=== PATIENT | male | born 1945 | race Caucasian/White ===

== ENCOUNTER 2018-03-20 11:33 | Emergency (ER) | payer OTHER ==
--- NOTE | 2018-03-20 12:57 | RAD REPORT ---
EXAM DESCRIPTION: CT - Stone Protocol - 03/20/2018 12:42 pm CLINICAL HISTORY: Abdominal pain. COMPARISON: July 2017 TECHNIQUE: Computed axial tomography of the abdomen pelvis was obtained without oral or IV contrast. Lack of IV and oral contrast limits evaluation of solid organs, bowel, and vessels. Coronal reformat bryant images were obtained and reviewed. All CT scans are performed using dose optimization technique as appropriate and may include automated exposure control or mA/KV adjustment according to patient size. FINDINGS: A 2 millimeter calculus is present within the left kidney without hydronephrosis. A right renal calculus is not noted. Renal arterial calcifications are present. An ureteral calculus is not n oted. A bladder calculus is not present. Hepatic and splenic granulomata are present. Fatty infiltration liver is present Pancreas and adrenals appear grossly normal Diverticula stem from the colon without evidence of diverticulitis. The appendix is normal. A small right inguinal hernia contains fat. An abdominal aortic aneurysm at the level of the kidneys measures 3.4 centimeters and is unchanged. A n infrarenal abdominal aortic aneurysm has an AP diameter 3.5 centimeters and is without significant change. Left common iliac artery aneurysm measures 23 millimeters IMPRESSION: A 2 millimeter nonobstructing left renal calculus Stable abdominal aortic aneurysms. Stable left common iliac artery aneurysm
[2018-03-20 12:58] LABS: Urine Bacteria <20 /HPF (NONE SEEN); Urine Culture Reflex Order NOT NEEDED; Urine Mucus 1+ /HPF (NONE SEEN); Urine RBC NONE SEEN /HPF (NONE SEEN)
[2018-03-20 12:59] LABS: Urine Blood NEGATIVE (NEG); Urine Glucose TRACE (NEG); Urine Protein NEGATIVE (NEG); Urine Specific Gravity 1.025 (1.005-1.030); Urine pH 6.5 (5.0-7.0)
--- NOTE | 2018-03-20 13:46 | ER ---
Nurse's Notes [facility] Name: Rick Xavier Age: 72 yrs Sex: Male : 1945 Arrival Date: 03/20/2018 Time: 11:36 Bed 7 Private MD: Hamzah Dos Santos R Diagnosis: Other abdominal pain Presentation: 03/20 11:43 Presenting complaint: Patient states: left abdominal pain. Pt states "about 6 months aa5 ago they found a spot in my intestines and Dr. Dos Santos wanted me to go do a colonoscopy but I never did but I came here because I started hurting worse about 3 days ago". Transition of care: patient was not received from another setting of care. Onset of symptoms was 2017. Risk Assessment: Do you want to hurt yourself or someone else? Patient reports no desire to harm self or others. Initial Sepsis Screen: Does the patient meet any 2 criteria? No. Patient's initial sepsis screen is negative. Does the patient have a suspected source of infection? No. Patient's initial sepsis screen is negative. Care prior to arrival: None. 11:43 Method Of Arrival: Ambulatory aa5 11:43 Acuity: MAX 3 aa5 Historical: - Allergies: 11:45 diphenhydramine HCl; aa5 11:45 procaine HCl; aa5 - PMHx: 11:45 Asthma; chronic back pain; COPD; CVA; Emphysema; Myocardial infarction; aa5 - PSHx: 11:45 CABG; Hernia repair; aa5 - Immunization history:: Pneumococcal vaccine is up to date, Flu vaccine is up to date. - Social history:: Smoking status: Patient/guardian denies using tobacco. - Ebola Screening: : No symptoms or risks identified at this time. Screenin:00 Abuse screen: Denies threats or abuse. Denies injuries from another. Nutritional hb screening: No deficits noted. Tuberculosis screening: No symptoms or risk factors identified. Fall Risk None identified. Assessment: 13:07 Reassessment: Pt returned from CT. OK to drink water per Dr. Hines. Water provided as hb requested. NAD. remains at bedside. Vital Signs: 11:45 BP 157 / 91; Pulse 74; Resp 16 S; Temp 97.9(TE); Pulse Ox 95% on R/A; Weight 102.51 kg aa5 (R); Height 5 ft. 9 in. (175.26 cm) (R); Pain 10/10; 13:00 BP 111 / 77; Pulse 83; Resp 15; Pulse Ox 98% on R/A; hb 11:45 Body Mass Index 33.37 (102.51 kg, 175.26 cm) aa5 ED Course: 11:36 Patient arrived in ED. sb2 11:36 Hamzah Dos Santos MD is Private Physician. sb2 11:45 Triage completed. aa5 11:46 Arm band placed on. aa5 11:59 Pablito Hines MD is Attending Physician. gs 12:00 Patient has correct armband on for positive identification. hb 12:[address] vr 12:29 Maile Cameron RN is Primary Nurse. hb 12:42 CT Stone Protocol In Process Unspecified. EDMS 14:30 No provider procedures requiring assistance completed. IV discontinued, intact, hb bleeding controlled, No redness/swelling at site. Pressure dressing applied. Administered Medications: No medications were administered Outcome: 13:46 Discharge ordered by . gs 14:30 Discharged to home ambulatory, with family. hb 14:30 Condition: stable 14:30 Discharge instructions given to patient, family, Instructed on discharge instructions, follow up and referral plans. medication usage, Demonstrated understanding of instructions, follow-up care, medications. 14:36 Patient left the ED. hb Signatures: Dispatcher [employer] EDPA Callie Villalba RN RN Jolynn Agarwal Maile Cameron, GAEL MAYO Pablito Hines MD MD Bianca Martinez sb2 Corrections: (The following items were deleted from the chart) 19:13 14:30 Discharge instructions given to patient, family, Instructed on discharge hb instructions, follow up and referral plans. medication usage, Demonstrated understanding of instructions, follow-up care, medications, Prescriptions given X 3, hb
--- NOTE | 2018-03-20 13:46 | EDPHYS ---
Physician Documentation [facility] Name: Rick Xavier Age: 72 yrs Sex: Male : 1945 Arrival Date: 03/20/2018 Time: 11:36 Bed 7 Private MD: Hamzah Dos Santos R ED Physician Pablito Hines HPI: 03/20 13:17 This 72 yrs old Male presents to ER via Ambulatory with complaints of SIDE gs PAIN. 13:17 The patient complains of pain in the left low back. The pain radiates to the right gs lower quadrant. Onset: The symptoms/episode began/occurred gradually, 5 day(s) ago. Modifying factors: The symptoms are alleviated by nothing. Associated signs and symptoms: Pertinent negatives: dysuria, hematuria, pain radiating to the lower extremities. Severity of pain: At its worst the pain was moderate in the emergency department the pain has improved mildly. The patient has experienced similar episodes in the past, a few times. The patient has not recently seen a physician. Historical: - Allergies: 11:45 diphenhydramine HCl; aa5 11:45 procaine HCl; aa5 - PMHx: 11:45 Asthma; chronic back pain; COPD; CVA; Emphysema; Myocardial infarction; aa5 - PSHx: 11:45 CABG; Hernia repair; aa5 - Immunization history:: Pneumococcal vaccine is up to date, Flu vaccine is up to date. - Social history:: Smoking status: Patient/guardian denies using tobacco. - Ebola Screening: : No symptoms or risks identified at this time. ROS: 13:17 Cardiovascular: Negative for chest pain, orthopnea, palpitations, paroxysmal nocturnal gs dyspnea. 13:17 Respiratory: Negative for pleurisy, shortness of breath. 13:17 All other systems are negative. Exam: 13:17 Head/Face: Normocephalic, atraumatic. Eyes: Pupils equal round and reactive to light, gs extra-ocular motions intact. Lids and lashes normal. Conjunctiva and sclera are non-icteric and not injected. Cornea within normal limits. Periorbital areas with no swelling, redness, or edema. ENT: Nares patent. No nasal discharge, no septal abnormalities noted. Tympanic membranes are normal and external auditory canals are clear. Oropharynx with no redness, swelling, or masses, exudates, or evidence of obstruction, uvula midline. Mucous membranes moist. Neck: Trachea midline, no thyromegaly or masses palpated, and no cervical lymphadenopathy. Supple, full range of motion without nuchal rigidity, or vertebral point tenderness. No Meningismus. Chest/axilla: Normal chest wall appearance and motion. Nontender with no deformity. No lesions are appreciated. Cardiovascular: Regular rate and rhythm with a normal S1 and S2. No gallops, murmurs, or rubs. Normal PMI, no JVD. No pulse deficits. Respiratory: Lungs have equal breath sounds bilaterally, clear to auscultation and percussion. No rales, rhonchi or wheezes noted. No increased work of breathing, no retractions or nasal flaring. Back: No spinal tenderness. No costovertebral tenderness. Full range of motion. Skin: Warm, dry with normal turgor. Normal color with no rashes, no lesions, and no evidence of cellulitis. MS/ Extremity: Pulses equal, no cyanosis. Neurovascular intact. Full, normal range of motion. Neuro: Awake and alert, GCS 15, oriented to person, place, time, and situation. Cranial nerves II-XII grossly intact. Motor strength 5/5 in all extremities. Sensory grossly intact. Cerebellar exam normal. Normal gait. 13:17 Constitutional: The patient appears alert, awake. 13:17 Abdomen/GI: Palpation: moderate abdominal tenderness, in the left upper quadrant. Vital Signs: 11:45 BP 157 / 91; Pulse 74; Resp 16 S; Temp 97.9(TE); Pulse Ox 95% on R/A; Weight 102.51 kg aa5 (R); Height 5 ft. 9 in. (175.26 cm) (R); Pain 10/10; 13:00 BP 111 / 77; Pulse 83; Resp 15; Pulse Ox 98% on R/A; hb 11:45 Body Mass Index 33.37 (102.51 kg, 175.26 cm) aa5 MDM: 12:05 Patient medically screened. gs 13:17 Differential diagnosis: nephrolithiasis, pyelonephritis, UTI, ruptured AAA. Data gs reviewed: vital signs, nurses notes. Response to treatment: the patient's symptoms have mildly improved after treatment, and as a result, I will discharge patient. 03/20 12:08 Order name: Urine Microscopic Only; Complete Time: 13:01 gs 03/20 12:48 Order name: Urine Dipstick--Ancillary (enter results); Complete Time: 13:01 em1 03/20 12:08 Order name: Urine Dipstick-Ancillary (obtain specimen); Complete Time: 12:31 gs 03/20 12:08 Order name: CT Stone Protocol; Complete Time: 13:01 Administered Medications: No medications were administered Disposition: 03/20/18 13:46 Discharged to Home. Impression: Other abdominal pain. - Condition is Stable. - Discharge Instructions: Flank Pain, [id number]. - Medication Reconciliation Form, Thank You Letter, Antibiotic Education, Prescription Opioid Use form. - Follow up: Private Physician; When: 2 - 3 days; Reason: Re-evaluation by your physician. Signatures: Dispatcher [employer] EDCallie Cassidy RN RN aa5 Maile Cameron RN RN Pablito Hines MD MD Corrections: (The following items were deleted from the chart) 14:36 13:46 03/20/2018 13:46 Discharged to Home. Impression: Other abdominal pain. Condition hb is Stable. Forms are Medication Reconciliation Form, Thank You Letter, Antibiotic Education, Prescription Opioid Use. Follow up: Private Physician; When: 2 - 3 days; Reason: Re-evaluation by your physician. gs
[2018-03-20 14:40] VITALS: TEMP 97.9
[2018-03-20 14:41] VITALS: BP 111/77; O2SAT 98
== END 2018-03-20 14:36 | disposition home or self-care (01) ==
LOC: ER 11:33
DX: R10.9 Unspecified abdominal pain (principal); I25.2 Old myocardial infarction; Z88.8 Allergy status to other drugs, medicaments and biological substances; Z95.1 Presence of aortocoronary bypass graft
CPT/HCPCS: 74176; 76377; 81003; 81015; 99284

== ENCOUNTER 2018-04-29 08:29 | Inpatient (IN) | payer OTHER ==
[2018-04-29] MEDS ORDERED: ALBUTEROL 2.5 MG/3 ML NEB SOL ONE (09:01)
[2018-04-29] MEDS ORDERED: IPRATROPIUM BROM 0.5MG/2.5ML ONE (09:01)
[2018-04-29] MEDS ORDERED: predniSONE 20 MG TAB ONE (09:02)
[2018-04-29 09:21] LABS: Absolute Lymphocytes (CBC) 1.1 K/uL (0.7-4.9); Absolute Monocytes 0.4 K/uL (0.1-1.3); Absolute Neutrophil 4.2 K/uL (1.8-8.0); Basophils % 0.5 % (0-1.3); Eosinophils % 3.8 % (0-4.4); Lymphocytes % 18.3 % (15.3-44.8); MPV 7.8 fL (7.6-11.3); RBC Red Blood Cell Count 4.87 M/uL (4.33-5.43)
[2018-04-29 09:40] LABS: BUN Blood Urea Nitrogen 11 mg/dL (7-18); Bicarbonate 27 mmol/L (21-32); Glucose Level 173 mg/dL (74-106); NT PRO-BNP 200 pg/mL (<125); Potassium 3.4 mmol/L (3.5-5.1); Sodium Level 141 mmol/L (136-145)
[2018-04-29 10:54] LABS: Blood Gas Oxyhemoglobin 91.9 % (94-97); Blood O2 Saturation 93.8 % (92-98.5)
--- NOTE | 2018-04-29 11:16 | ER ---
Nurse's Notes [facility] Name: Rick Xavier Age: 73 yrs Sex: Male : 1945 Arrival Date: 04/29/2018 Time: 08:33 Bed 7 Private MD: Hamzah Dos Santos R Diagnosis: Mild persistent asthma with (acute) exacerbation;Unstable angina Presentation: 04/29 08:35 Presenting complaint: Patient states: SOB and chest pressure since last night. Pt has aa5 hx of COPD. 93 % RA O2 sat. 08:35 Transition of care: patient was not received from another setting of care. Onset of aa5 symptoms was April 29, 2018. Risk Assessment: Do you want to hurt yourself or someone else? Patient reports no desire to harm self or others. Initial Sepsis Screen: Does the patient meet any 2 criteria? No. Patient's initial sepsis screen is negative. Does the patient have a suspected source of infection? No. Patient's initial sepsis screen is negative. Care prior to arrival: None. 08:35 Method Of Arrival: Ambulatory aa5 08:35 Acuity: MAX 3 aa5 Triage Assessment: 09:00 General: Appears in no apparent distress. uncomfortable, Behavior is calm, cooperative, jb4 appropriate for age. Respiratory: Reports shortness of breath at rest Onset: The symptoms/episode began/occurred yesterday, the patient has mild shortness of breath. Historical: - Allergies: 09:27 diphenhydramine HCl; jb4 09:27 procaine HCl; jb4 - Home Meds: 09:27 glimepiride Oral [Active]; Metoprolol Tartrate Oral [Active]; Zyrtec Oral [Active]; jb4 Zantac 150 mg oral tab [Active]; prednisone 10 mg Oral tab [Active]; aspirin 81 mg Oral TbEC [Active]; losartan oral oral [Active]; terazosin oral oral [Active]; metformin 1,000 mg Oral tr24 [Active]; hydrocodone-acetaminophen 10-325 mg oral tab [Active]; - PMHx: 09:27 Asthma; chronic back pain; COPD; CVA; Myocardial infarction; Emphysema; jb4 - PSHx: 09:27 CABG; Hernia repair; jb4 - Immunization history:: Adult Immunizations unknown. - Social history:: Smoking status: Patient/guardian denies using tobacco, but has a distant history of tobacco abuse. - Ebola Screening: : No symptoms or risks identified at this time. Screenin:00 Abuse screen: Denies threats or abuse. Nutritional screening: No deficits noted. jb4 Tuberculosis screening: No symptoms or risk factors identified. Fall Risk None identified. Assessment: 09:00 General: Appears in no apparent distress. uncomfortable, Behavior is calm, cooperative, jb4 appropriate for age. Pain: Complains of pain in chest. Neuro: Level of Consciousness is awake, alert, obeys commands, Oriented to person, place, time, situation. Cardiovascular: Heart tones S1 S2 present Patient's skin is warm and dry. Rhythm is sinus tachycardia. Respiratory: Airway is patent Respiratory effort is even, labored, Respiratory pattern is regular, symmetrical, Breath sounds are diminished in left upper lobe, left lower lobe, left posterior upper lobe and left posterior lower lobe Breath sounds with wheezes in right upper lobe, right middle lobe, right lower lobe, right posterior upper lobe, right posterior middle lobe and right posterior lower lobe. GI: No signs and/or symptoms were reported involving the gastrointestinal system. : No signs and/or symptoms were reported regarding the genitourinary system. EENT: No signs and/or symptoms were reported regarding the EENT system. Derm: Skin is intact, Skin is pink, warm \T\ dry. Musculoskeletal: Circulation, motion, and sensation intact. 09:52 Reassessment: Patient and/or family updated on plan of care and expected duration. Pain hj level reassessed. Patient is alert, oriented x 3, equal unlabored respirations, skin warm/dry/pink. awaiting results and POC; family in room; Patient states feeling better. Patient states symptoms have improved. 10:36 Reassessment: Patient and/or family updated on plan of care and expected duration. Pain jb4 level reassessed. Patient is alert, oriented x 3, equal unlabored respirations, skin warm/dry/pink. Patient denies pain at this time. Patient states feeling better. Patient states symptoms have improved. 11:23 Reassessment: Patient appears in no apparent distress at this time. No changes from jb4 previously documented assessment. Patient and/or family updated on plan of care and expected duration. Pain level reassessed. Patient is alert, oriented x 3, equal unlabored respirations, skin warm/dry/pink. Patient denies pain at this time. Vital Signs: 08:44 BP 153 / 95; Pulse 107; Resp 24; Temp 98.2(TE); Pulse Ox 93% on R/A; Weight 97.07 kg; jb4 Height 5 ft. 9 in. (175.26 cm); 08:47 Pulse Ox 96% on 2 lpm NC; jb4 09:52 BP 143 / 61; Pulse 118; Resp 18; Pulse Ox 97% on R/A; hj 10:37 BP 139 / 66; Pulse 112; Resp 20; Pulse Ox 97% on 2 lpm NC; Pain 0/10; jb4 11:23 BP 123 / 59; Pulse 107; Resp 23; Pulse Ox 96% on 2 lpm NC; Pain 0/10; jb4 08:44 Body Mass Index 31.60 (97.07 kg, 175.26 cm) 4 ED Course: 08:33 Patient arrived in ED. mr 08:33 Hamzah Dos Santos MD is Private Physician. mr 08:35 Arm band placed on Patient placed in an exam room, on a stretcher. aa5 08:38 Pablito Hines MD is Attending Physician. gs 08:41 Triage completed. aa5 08:44 Beau Guy, GAEL is Primary Nurse. jb4 09:00 Patient has correct armband on for positive identification. Bed in low position. Call [facility] light in reach. Side rails up X 1. monitor tech on. Pulse ox on. NIBP on. 09:00 Initial lab(s) drawn, by mn, sent to lab. Inserted saline lock: 22 gauge in right jb4 antecubital area, using aseptic technique. Blood collected. Missed attempt(s): 22 gauge in right forearm. 09:26 XRAY Chest (1 view) In Process Unspecified. EDMS 11:15 Hamzah Dos Santos MD is Hospitalizing Provider. gs 11:59 No provider procedures requiring assistance completed. Patient admitted, IV remains in [facility] place. intact. Administered Medications: 08:55 Drug: predniSONE 40 mg Route: PO; [facility] 09:45 Follow up: Response: No adverse reaction [facility] 08:55 Drug: Albuterol - atroVENT (3:1) (2.5 mg - 0.5 mg) 3 ml Route: Nebulizer; jb4 09:45 Follow up: Response: No adverse reaction; Wheezing diminished jb4 08:55 Drug: AtroVENT Aerosol 0.5 mg Route: Inhalation; jb4 11:20 Drug: Aspirin Chewable Tablet 324 mg Route: PO; jb4 11:41 Follow up: Response: No adverse reaction jb4 11:48 Follow up: Response: No adverse reaction hj 11:46 Drug: Potassium Effervescent Tablet 50 mEq Route: PO; jb4 11:50 Follow up: Response: No adverse reaction jb4 Outcome: 11:15 Decision to Hospitalize by Provider. 11:59 Admitted to Tele accompanied by tech, family with patient, via wheelchair, room 401, jb4 with chart, Report called to GAEL Oh 11:59 Condition: stable 11:59 Instructed on the need for admit, Demonstrated understanding of instructions. 12:09 Patient left the ED. [place] Signatures: Dispatcher [employer] EDPadmini Watts Audri, RN RN aa5 Kumar Simon RN RN hj Bryson, James, RN RN jb4 Pablito Hines MD MD
--- NOTE | 2018-04-29 11:16 | EDPHYS ---
Physician Documentation [facility] Name: Rick Xavier Age: 73 yrs Sex: Male : 1945 Arrival Date: 04/29/2018 Time: 08:33 Bed 7 Private MD: Hamzah Dos Santos R ED Physician Pablito Hines HPI: 04/29 10:21 This 73 yrs old Male presents to ER via Ambulatory with complaints of gs Breathing Difficulty. 10:21 Onset: The symptoms/episode began/occurred 2 day(s) ago, and became worse and became gs persistent. Duration: The symptoms are continuous. The patient's shortness of breath is aggravated by exertion. Associated signs and symptoms: Pertinent positives: chest pain, non-productive cough. Severity of symptoms: At their worst the symptoms were severe in the emergency department the symptoms are unchanged. The patient has experienced similar episodes in the past, several times. Historical: - Allergies: 09:27 diphenhydramine HCl; jb4 09:27 procaine HCl; jb4 - Home Meds: 09:27 glimepiride Oral [Active]; Metoprolol Tartrate Oral [Active]; Zyrtec Oral [Active]; jb4 Zantac 150 mg oral tab [Active]; prednisone 10 mg Oral tab [Active]; aspirin 81 mg Oral TbEC [Active]; losartan oral oral [Active]; terazosin oral oral [Active]; metformin 1,000 mg Oral tr24 [Active]; hydrocodone-acetaminophen 10-325 mg oral tab [Active]; - PMHx: 09:27 Asthma; chronic back pain; COPD; CVA; Myocardial infarction; Emphysema; jb4 - PSHx: 09:27 CABG; Hernia repair; jb4 - Immunization history:: Adult Immunizations unknown. - Social history:: Smoking status: Patient/guardian denies using tobacco, but has a distant history of tobacco abuse. - Ebola Screening: : No symptoms or risks identified at this time. ROS: 10:21 All other systems are negative. gs Exam: 10:21 Head/Face: Normocephalic, atraumatic. Eyes: Pupils equal round and reactive to light, gs extra-ocular motions intact. Lids and lashes normal. Conjunctiva and sclera are non-icteric and not injected. Cornea within normal limits. Periorbital areas with no swelling, redness, or edema. ENT: Nares patent. No nasal discharge, no septal abnormalities noted. Tympanic membranes are normal and external auditory canals are clear. Oropharynx with no redness, swelling, or masses, exudates, or evidence of obstruction, uvula midline. Mucous membranes moist. Neck: Trachea midline, no thyromegaly or masses palpated, and no cervical lymphadenopathy. Supple, full range of motion without nuchal rigidity, or vertebral point tenderness. No Meningismus. Chest/axilla: Normal chest wall appearance and motion. Nontender with no deformity. No lesions are appreciated. Abdomen/GI: Soft, non-tender, with normal bowel sounds. No distension or tympany. No guarding or rebound. No evidence of tenderness throughout. Back: No spinal tenderness. No costovertebral tenderness. Full range of motion. Skin: Warm, dry with normal turgor. Normal color with no rashes, no lesions, and no evidence of cellulitis. MS/ Extremity: Pulses equal, no cyanosis. Neurovascular intact. Full, normal range of motion. Neuro: Awake and alert, GCS 15, oriented to person, place, time, and situation. Cranial nerves II-XII grossly intact. Motor strength 5/5 in all extremities. Sensory grossly intact. Cerebellar exam normal. Normal gait. 10:21 Constitutional: The patient appears alert, awake, in obvious distress, severely distressed. 10:21 Cardiovascular: Rate: tachycardic, Rhythm: regular, Pulses: no pulse deficits are appreciated, Edema: is not appreciated. 10:21 ECG was reviewed by the Attending Physician. 10:21 Respiratory: mild respiratory distress is noted, Respirations: tachypnea, that is mild, Breath sounds: wheezing: that is moderate, is heard diffusely. Vital Signs: 08:44 BP 153 / 95; Pulse 107; Resp 24; Temp 98.2(TE); Pulse Ox 93% on R/A; Weight 97.07 kg; jb4 Height 5 ft. 9 in. (175.26 cm); 08:47 Pulse Ox 96% on 2 lpm NC; jb4 09:52 BP 143 / 61; Pulse 118; Resp 18; Pulse Ox 97% on R/A; hj 10:37 BP 139 / 66; Pulse 112; Resp 20; Pulse Ox 97% on 2 lpm NC; Pain 0/10; jb4 11:23 BP 123 / 59; Pulse 107; Resp 23; Pulse Ox 96% on 2 lpm NC; Pain 0/10; jb4 08:44 Body Mass Index 31.60 (97.07 kg, 175.26 cm) jb4 MDM: 08:43 Patient medically screened. 10:21 Differential diagnosis: Bronchitis CHF exacerbation, Chronic Obstructive Pulmonary gs Disease Myocardial Infarction. Data reviewed: vital signs, nurses notes. 04/29 08:50 Order name: Basic Metabolic Panel; Complete Time: 10:00 04/29 08:50 Order name: CBC with Diff; Complete Time: 10:00 04/29 08:50 Order name: NT PRO-BNP; Complete Time: 10:00 04/29 08:50 Order name: Troponin (emerg Dept Use Only); Complete Time: 10:00 04/29 10:33 Order name: ABG; Complete Time: 11:05 04/29 11:25 Order name: NT PRO-BNP [facility] 04/29 08:50 Order name: XRAY Chest (1 view); Complete Time: 11:46 04/29 11:25 Order name: NT PRO-BNP [facility] 04/29 11:25 Order name: Troponin I [facility] 04/29 11:25 Order name: Troponin I [facility] 04/29 11:25 Order name: Troponin I [facility] 04/29 11:44 Order name: Urine Dipstick--Ancillary (enter results) 04/29 08:50 Order name: EKG; Complete Time: 08:50 04/29 08:50 Order name: Cardiac monitoring; Complete Time: 08:55 04/29 08:50 Order name: EKG - Nurse/Tech; Complete Time: 08:55 04/29 08:50 Order name: IV Saline Lock; Complete Time: 09:11 04/29 08:50 Order name: Labs collected and sent; Complete Time: 09:11 04/29 08:50 Order name: O2 Per Protocol; Complete Time: 08:55 04/29 08:50 Order name: O2 Sat Monitoring; Complete Time: 08:55 04/29 08:50 Order name: Urine Dipstick-Ancillary (obtain specimen); Complete Time: 11:39 04/29 11:25 Order name: CONS Physician Consult [facility] 04/29 11:25 Order name: Heart Healthy [facility] EC:21 Rate is 107 beats/min. Rhythm is regular. [place] interval is normal. QRS interval is gs normal. T waves are Normal. No ST changes noted. Clinical impression: NSR w/ Non-specific ST/T Changes and Sinus tachycardia. Interpreted by me. Administered Medications: 08:55 Drug: predniSONE 40 mg Route: PO; jb4 09:45 Follow up: Response: No adverse reaction jb4 08:55 Drug: Albuterol - atroVENT (3:1) (2.5 mg - 0.5 mg) 3 ml Route: Nebulizer; jb4 09:45 Follow up: Response: No adverse reaction; Wheezing diminished jb4 08:55 Drug: AtroVENT Aerosol 0.5 mg Route: Inhalation; jb4 11:20 Drug: Aspirin Chewable Tablet 324 mg Route: PO; jb4 11:41 Follow up: Response: No adverse reaction jb4 11:48 Follow up: Response: No adverse reaction hj 11:46 Drug: Potassium Effervescent Tablet 50 mEq Route: PO; jb4 11:50 Follow up: Response: No adverse reaction jb4 Disposition: 11:14 Critical Care:. gs Disposition: 04/29/18 11:15 Hospitalization ordered by Hamzah Dos Santos for Inpatient Admission. Preliminary diagnosis are Mild persistent asthma with (acute) exacerbation, Unstable angina. - Bed requested for Telemetry/MedSurg (Inpatient). - Status is Inpatient Admission. hj - Condition is Stable. - Problem is new. - Symptoms have improved. UTI on Admission? No Critical care time excluding procedures: 11:14 Critical care time: Bedside Care: 10 minutes, Consultation: 10 minutes, Family gs Intervention: 10 minutes. Total time: 30 minutes Signatures: Dispatcher [employer] [facility] Emperatriz Escalera RN RN Kumar Simon RN RN Beau Guy RN RN jb4 Pablito Hines MD MD Corrections: (The following items were deleted from the chart) 11:15 11:15 Hospitalization Ordered by Hamzah Dos Santos MD for Inpatient Admission. Preliminary gs diagnosis is Mild persistent asthma with (acute) exacerbation. Bed requested for Telemetry/MedSurg (Inpatient). Status is Inpatient Admission. Condition is Stable. Problem is new. Symptoms have improved. UTI on Admission? No. gs 11:46 11:15 04/29/2018 11:15 Hospitalization Ordered by Hamzah Dos Santos MD for Inpatient dw Admission. Preliminary diagnosis is Mild persistent asthma with (acute) exacerbation; Unstable angina. Bed requested for Telemetry/MedSurg (Inpatient). Status is Inpatient Admission. Condition is Stable. Problem is new. Symptoms have improved. UTI on Admission? No. gs 12:09 11:46 04/29/2018 11:15 Hospitalization Ordered by Hamzah Dos Santos MD for Inpatient hj Admission. Preliminary diagnosis is Mild persistent asthma with (acute) exacerbation; Unstable angina. Bed requested for Telemetry/MedSurg (Inpatient). Status is Inpatient Admission. Condition is Stable. Problem is new. Symptoms have improved. UTI on Admission? No. dw
[2018-04-29] MEDS ORDERED: ASPIRIN 81 MG CHEWABLE TABLET ONE (11:23)
[2018-04-29] MEDS ORDERED: ACETAMINOPHEN 500 MG TAB PO PRN (11:23)
--- NOTE | 2018-04-29 11:37 | RAD REPORT ---
EXAM DESCRIPTION: Tia Single View04/29/2018 9:56 am CLINICAL HISTORY: Chest pain COMPARISON: July 2017 FINDINGS: The lungs appear clear of acute infiltrate. The heart is normal size post surgical change s involve the chest IMPRESSION: No acute abnormalities displayed
[2018-04-29] MEDS ORDERED: POTASSIUM 25 MEQ EFFERV TAB ONE (11:54)
[2018-04-29 12:16] LABS: Urine Blood NEGATIVE (NEG); Urine Glucose TRACE (NEG); Urine Protein NEGATIVE (NEG); Urine Specific Gravity >1.030 (1.005-1.030); Urine pH 5.5 (5.0-7.0)
[2018-04-29] MEDS: METHYLPREDNISOLONE 40 MG INJ IV SCH ×2 (13:07→18:02)
[2018-04-29 13:41] VITALS: BMI 31.1
[2018-04-29] MEDS ORDERED: GLUCAGON 1 MG/VIAL IM PRN (19:12)
[2018-04-29] MEDS ORDERED: D50W 25 GM/50 ML SYRINGE IV PRN (19:12)
[2018-04-29] MEDS ORDERED: ALPRAZOLAM 0.25 MG TABLET PO PRN (19:35)
[2018-04-29] MEDS: INSULIN -REGULAR HUMAN 50 UNIT/0.5 ML ML SQ SCH (20:11)
[2018-04-29] MEDS: ALBUTEROL 2.5 MG/3 ML NEB SOL NEB PRN (20:55)
[2018-04-29] MEDS ORDERED: HYDROCODONE/APAP 10/325 TAB PO PRN (22:31)
[2018-04-30] MEDS: METHYLPREDNISOLONE 40 MG INJ IV SCH ×2 (02:00→08:27)
--- NOTE | 2018-04-30 07:47 | EKG ---
Test Date: 2018-04-29 Test Time: 08:46:09 Mounter: RODRIGUE MEASUREMENT RESULTS: Intervals: Rate: 107 MD: 168 QRSD: 82 QT: 360 QTc: 480 [place]: P: 41 MD: 168 QRS: 42 T: 43 INTERPRETIVE STATEMENTS: Sinus tachycardia with premature supraventricular complexes Otherwise normal ECG Compared to ECG 07/27/2017 10:09:18 Atrial premature complex(es) now present T-wave abnormality no longer present Electronically Signed On 05-01-18 07:51:38 CDT by Garry Pisano
[2018-04-30] MEDS: ALBUTEROL 2.5 MG/3 ML NEB SOL NEB PRN (07:56)
[2018-04-30 08:19] VITALS: BP 179/98; TEMP 98.4
[2018-04-30] MEDS: INSULIN -REGULAR HUMAN 50 UNIT/0.5 ML ML SQ SCH (08:26)
[2018-04-30] MEDS ORDERED: LOSARTAN POTASSIUM 50 MG TABLET PO SCH (09:00)
[2018-04-30] MEDS ORDERED: CETIRIZINE HCL 5 MG TABLET PO SCH (09:00)
[2018-04-30] MEDS ORDERED: METOPROLOL TAR 50 MG TAB PO SCH (09:00)
[2018-04-30] MEDS ORDERED: ASPIRIN EC 81 MG TAB PO SCH (09:00)
[2018-04-30] MEDS ORDERED: RANITIDINE 150 MG TABLET PO SCH (09:00)
--- NOTE | 2018-04-30 13:09 | CON ---
Date of Consultation: 04/30/2018 I saw the patient on 04/30/2018. Reason For Consultation: Elevated troponin and shortness of breath. History Of Present Illness: The patient is a 73-year-old white male. He has a history of COPD that is severe, multiple CVAs, multiple MIs, multiple stents and CABG as well. His bypass surgery was abo ut 10 years ago here in this hospital by Dr. Palm. He has not had much in way of good followup from a cardiovascular standpoint. He does not remember when the last time he had an ultrasound or stress test. He came in with shortness of breath that he blamed on a mini-stroke. Did not have any chest p ain, nausea, vomiting, diaphoresis, PND, orthopnea, pedal edema, palpitations, or syncope. His tropo meaghan was 0.05 x 2, not consistent with acute coronary artery syndrome. His BNP was 200. His glucose was 274. His PO2 was 70, pH of 7.4, and pCO2 of 37. His chest x-ray was negative. EKG showed sinus tachycardia with nonspecific changes. The patient continues to have significant wheezing and shortn ess of breath but no chest pain. Past Medical History: As stated above. Allergies: HE IS ALLERGIC TO BENADRYL AND PROCAINE. Review of Systems: Negative. Social History: Positive for tobacco use in the past. Family History: Positive for heart disease. Medications: At home include metformin, Hytrin, prednisone, inhalers, aspirin, Lipitor, Cozaar, glim epiride, and metoprolol. Physical Examination: General: He was in no acute distress. His shortness of breath have improved. He was crying because of multiple stress issues and social issues at home with his son in his house. He was in sinus rhyt . Vital Signs: Stable. HEENT: Exam was negative. Neck: Supple without any JVD, thyromegaly, or bruit. Chest: Revealed severe wheezing on expiration bilaterally, but no rales. Cardiac: Revealed a regular rhythm and rate without any murmurs, gallops, or rubs. Abdomen: His abdomen was obese but benign. Extremities: Revealed no clubbing, cyanosis, or edema. Diagnostic Data: As stated earlier. Impression And Plan: 1.I think Mr. Xavier's symptoms are purely chronic obstructive pulmonary disease exacerbation. I doubt we are dealing with congestive heart failure. His troponin elevation can be easy to explain by hypoxia. The pattern is not consistent with acute coronary artery syndrome and he does not need a h eart catheterization, but I do recommend he has an echocardiogram and a Lexiscan. These certainly co uld be done as an inpatient or outpatient and he needs his chronic obstructive pulmonary disease gal bryant more aggressively. His other problems include history of cerebrovascular accident, coronary abdi ry bypass graft, diabetes, hypertension, and dyslipidemia, seems to be fairly well controlled at this point. I will discuss the case further with Dr. Beal. ANATOLY/CRISS Voice ID: [id number] Report ID: [id number]
[2018-04-30 13:30] VITALS: O2SAT 94
[2018-04-30] MEDS ORDERED: ATORVASTATIN 20 MG TAB PO SCH (21:00)
[2018-04-30] MEDS ORDERED: METFORMIN ER 500 MG TAB PO SCH (21:00)
[2018-04-30] MEDS ORDERED: TERAZOSIN HCL 5 MG CAP PO SCH (21:00)
[2018-04-30] MEDS ORDERED: TRAZODONE 50 MG TABLET PO SCH (21:00)
--- NOTE | 2018-05-01 05:59 | HP ---
Date of Admission: 04/29/2018 Chief Complaint: Wheezing and dyspnea. History Of Present Illness: A 73-year-old male was brought to the emergency room because of dyspnea and wheezing. The patient had evaluation done. The patient is admitted for observation. The patien t denied any history of fever, chills, or rigors. The patient does not clearly admit chest pain; how ever, ER notes indicate a history of chest pain. Past Medical History: Positive for type 2 diabetes, history of COPD, CVA old, history of coronary ar dona disease. Past Surgical History: Positive for hernia surgery and coronary bypass surgery. Review of Systems: No fever, chills, rigors. Physical Examination: General: Revealed a 73-year-old male, not in acute distress. Stable at rest. HEENT: Negative. Neck: Supple. JVD negative. Chest: Few scattered wheezes. Heart: Regular. Abdomen: Soft. Extremities: No edema. Assessment: 1.Chronic obstructive pulmonary disease exacerbation. 2.Chronic obstructive pulmonary disease. 3.Known coronary artery disease. 4.Hypertension. 5.History of old cerebrovascular accident. Plan: The patient claims that his son is in the shelter and he is stressed and wants to leave. The pat geovanna was discharged to have followup in the office. He was given oral steroids as well as Levaquin. RONNELL/CRISS Voice ID: [id number]
== END 2018-04-30 10:40 | disposition home or self-care (01) | DRG 192 ==
LOC: ER 08:29 → ERHOLD 11:22 → 4TH 11:59
PROVIDERS: ADMIT Internal Medicine; ATTEND Internal Medicine
DX: J44.1 Chronic obstructive pulmonary disease with (acute) exacerbation (principal); I25.10 Atherosclerotic heart disease of native coronary artery without angina pectoris; I10 Essential (primary) hypertension; R09.02 Hypoxemia; E78.5 Hyperlipidemia, unspecified; E11.9 Type 2 diabetes mellitus without complications; R74.8 Abnormal levels of other serum enzymes; Z87.891 Personal history of nicotine dependence; Z86.73 Personal history of transient ischemic attack (TIA), and cerebral infarction without residual deficits; Z95.1 Presence of aortocoronary bypass graft; Z95.5 Presence of coronary angioplasty implant and graft; I25.2 Old myocardial infarction; Z88.4 Allergy status to anesthetic agent; Z88.8 Allergy status to other drugs, medicaments and biological substances; Z79.84 Long term (current) use of oral hypoglycemic drugs; Z79.82 Long term (current) use of aspirin; Z79.52 Long term (current) use of systemic steroids
CPT/HCPCS: 36415; 71045; 80048; 81003; 82805; 82962; 83880; 84484; 85025; 87070; 87077; 87186; 87205; 93005; 94640; 94760; 99285; J2920; J7512

== ENCOUNTER 2018-05-19 12:25 | Inpatient (IN) | payer OTHER ==
[2018-05-19] MEDS ORDERED: LEVALBUTEROL 1.25 MG/3 ML NEB ONE (13:18)
[2018-05-19] MEDS ORDERED: VANCOMYCIN 1.5 GM in NA CHLORIDE 0.9% 500 ML IVPB ONE (13:30)
[2018-05-19 13:44] LABS: Absolute Lymphocytes (CBC) 1.9 K/uL (0.7-4.9); Absolute Monocytes 1.1 K/uL (0.1-1.3); Absolute Neutrophil 8.9 K/uL (1.8-8.0); Basophils % 0.3 % (0-1.3); Eosinophils % 1.3 % (0-4.4); Hematocrit 36.6 % (39.6-49.0); Lymphocytes % 16.1 % (15.3-44.8); MCH 25.6 pg (27.0-35.0); MCV 78.9 fL (80-100); MPV 7.9 fL (7.6-11.3); Monocytes % 9.2 % (3.3-12.3); RBC Red Blood Cell Count 4.65 M/uL (4.33-5.43)
[2018-05-19 14:03] LABS: BUN Blood Urea Nitrogen 10 mg/dL (7-18); Bicarbonate 30 mmol/L (21-32); Glucose Level 191 mg/dL (74-106); Potassium 3.8 mmol/L (3.5-5.1); Sodium Level 136 mmol/L (136-145)
--- NOTE | 2018-05-19 14:13 | ER ---
Nurse's Notes [facility] Name: Rick Xavier Age: 73 yrs Sex: Male : 1945 Arrival Date: 05/19/2018 Time: 12:28 Bed 24 Private MD: Hamzah Dos Santos R Diagnosis: Cellulitis to the right foot Presentation: 05/19 12:35 Presenting complaint: Patient states: Wound infection to top of right foot for 3 days aj "where this cast is rubbing me." Patient reports being sent to ER for cast removal by ortho. Transition of care: patient was not received from another setting of care. Onset of symptoms was May 16, 2018. Risk Assessment: Do you want to hurt yourself or someone else? Patient reports no desire to harm self or others. Initial Sepsis Screen: Does the patient meet any 2 criteria? No. Patient's initial sepsis screen is negative. Does the patient have a suspected source of infection? No. Patient's initial sepsis screen is negative. Care prior to arrival: None. 12:35 Method Of Arrival: Wheelchair aj 12:35 Acuity: MAX 3 aj Triage Assessment: 12:37 General: Appears in no apparent distress. comfortable, Behavior is calm, cooperative, aj appropriate for age. Pain: Complains of pain in dorsum of right foot. Neuro: Level of Consciousness is awake, alert, obeys commands, Oriented to person, place, time, situation, Appropriate for age. Respiratory: Airway is patent Respiratory effort is even, unlabored, Respiratory pattern is regular, symmetrical. Derm: Skin is intact, is healthy with good turgor, Skin is pink, warm \\T\\ dry. normal, Wound noted dorsum of right foot Wound is Redness and inflammation to top of right foot. Historical: - Allergies: 12:37 diphenhydramine HCl; aj 12:37 procaine HCl; aj 12:37 PENICILLINS; aj - Home Meds: 12:37 aspirin 81 mg Oral TbEC [Active]; Glimepiride Oral [Active]; hydrocodone-acetaminophen aj 10-325 mg Oral tab [Active]; losartan Oral [Active]; metformin 1,000 mg Oral tr24 [Active]; Metoprolol Tartrate Oral [Active]; prednisone 10 mg Oral tab [Active]; terazosin Oral [Active]; Zantac 150 mg Oral tab [Active]; Zyrtec Oral [Active]; - PMHx: 12:37 Asthma; chronic back pain; COPD; CVA; Emphysema; Myocardial infarction; aj - PSHx: 12:37 CABG; Hernia repair; aj - Immunization history:: Adult Immunizations up to date. - Social history:: Smoking status: Patient/guardian denies using tobacco, Patient uses street drugs, marijuana. - Ebola Screening: : Patient negative for fever greater than or equal to 101.5 degrees Fahrenheit, and additional compatible Ebola Virus Disease symptoms Patient denies exposure to infectious person Patient denies travel to an Ebola-affected area in the 21 days before illness onset No symptoms or risks identified at this time. Screenin:48 Abuse screen: Denies threats or abuse. Nutritional screening: No deficits noted. la1 Tuberculosis screening: No symptoms or risk factors identified. Fall Risk None identified. Assessment: 12:48 General: Appears comfortable, Behavior is calm, cooperative. Pain: Complains of pain in la1 dorsum of right foot. Neuro: Level of Consciousness is awake, alert, obeys commands, Oriented to person, place, time, situation. Cardiovascular: Heart tones S1 S2 present Capillary refill < 3 seconds Patient's skin is warm and dry. Respiratory: Airway is patent Trachea midline Respiratory effort is even, unlabored, Respiratory pattern is regular, symmetrical. Respiratory: Breath sounds are diminished bilaterally. Breath sounds with wheezes the patient has mild shortness of breath. GI: No signs and/or symptoms were reported involving the gastrointestinal system. : No signs and/or symptoms were reported regarding the genitourinary system. Derm: Wound noted dorsum of right foot Other: pt presents with cast to E, wound at edge of cast on dorsum of foot. Vital Signs: 12:37 BP 112 / 86; Pulse 108; Resp 19; Temp 98.2; Pulse Ox 95% on R/A; Weight 95.71 kg; aj Height 5 ft. 9 in. (175.26 cm); 15:45 BP 108 / 70; Pulse 95; Resp 16; Pulse Ox 92% on R/A; la1 15:47 Temp 98.6; la1 12:37 Body Mass Index 31.16 (95.71 kg, 175.26 cm) ED Course: 12:28 Patient arrived in ED. sb2 12:29 Hamzah Dos Santos MD is Private Physician. sb2 12:36 Triage completed. aj 12:37 Arm band placed on left wrist. Patient placed in an exam room. aj 12:48 Oc Hylton, GAEL is Primary Nurse. la1 12:48 Bed in low position. Call light in reach. Side rails up X 1. Pulse ox on. NIBP on. la1 12:54 Isaiah Song MD is Attending Physician. kdr 13:20 Initial lab(s) drawn, by me, sent to lab. First set of blood cultures drawn via jp3 22-gauge IV in Right A/C. Inserted saline lock: 20 gauge in right antecubital area, using aseptic technique. Blood collected. 13:27 CBC with Diff Sent. jp3 13:27 Basic Metabolic Panel Sent. jp3 13:35 Second set of blood cultures drawn via 21-gauge butterfly needle in Left A/C. jp3 13:40 Blood Culture Adult (2) Sent. jp3 13:40 Basic Metabolic Panel Sent. jp3 13:41 CBC with Diff Sent. jp3 13:58 Removal of Cast applied by an outside physician was removed from lateral aspect of jp3 right calf, right ankle, lateral aspect of right foot, right calf, right Achilles, right heel, medial aspect of right calf, medial aspect of right foot, right kenny, anterior aspect of right ankle and dorsum of right foot. Skin is reddened, swollen, Patient tolerated well. 14:11 Hamzah Dos Santos MD is Hospitalizing Provider. kdr 14:25 X-ray completed. Portable x-ray completed in exam room. Patient tolerated procedure ml well. 15:32 Blood Culture Adult (2) Sent. jp3 16:40 No provider procedures requiring assistance completed. Patient admitted, IV remains in la1 place. Administered Medications: 13:47 Drug: Xopenex (3) 1.25 mg Route: Inhalation; la1 14:43 Drug: vancoMYCIN 1.5 grams Route: IVPB; Rate: calculated rate; Site: right antecubital; la1 15:45 Follow up: IV Status: Infusion continued upon admission la1 15:17 Drug: [place] 10 mg-325 mg 1 tabs Route: PO; la1 15:46 Follow up: Response: No adverse reaction; Pain is decreased la1 Outcome: 14:12 Decision to Hospitalize by Provider. kdr 16:40 Admitted to Med/surg accompanied by nurse, family with patient. la1 16:40 Condition: stable 16:40 Instructed on the need for admit. 16:41 Patient left the ED. la1 Signatures: Mayra Pete, RN Isaiah Edwards MD MD kdr Lopez, Melissa ml Attema, Lee, RN RN la1 Bianca Martinez sb2 Agustín Wright jp3 Corrections: (The following items were deleted from the chart) 12:39 12:37 Arm band placed on left wrist. Patient placed in waiting room, Patient notified aj of wait time aj
--- NOTE | 2018-05-19 14:13 | EDPHYS ---
Physician Documentation [facility] Name: Rick Xavier Age: 73 yrs Sex: Male : 1945 Arrival Date: 05/19/2018 Time: 12:28 Bed 24 Private MD: Hamzah Dos Santos R ED Physician Isaiah Song HPI: 05/19 17:58 This 73 yrs old Male presents to ER via Wheelchair with complaints of Foot kdr Pain - INFECTION. 17:58 The patient presents with an abrasion, decreased range of motion, pain, swelling, kdr tenderness. The complaints affect the right foot. Context: resulted from The patient had a fiberglass cast put on his lower extremity about three days ago and it has been rubbing on the top of his foot. Initially there was a blister on the top of his foot and since then, he has had increasing redness and swelling around the area, the patient can fully bear weight. Onset: The symptoms/episode began/occurred gradually, 3 day(s) ago. Modifying factors: The symptoms are alleviated by nothing, the symptoms are aggravated by movement. Associated signs and symptoms: The patient has no apparent associated signs or symptoms. Severity of symptoms: At their worst the symptoms were mild, in the emergency department the symptoms are unchanged. The patient has not experienced similar symptoms in the past. The patient has been recently seen by a physician: Dr. Espinal. Historical: - Allergies: 12:37 diphenhydramine HCl; aj 12:37 procaine HCl; aj 12:37 PENICILLINS; aj - Home Meds: 12:37 aspirin 81 mg Oral TbEC [Active]; Glimepiride Oral [Active]; hydrocodone-acetaminophen aj 10-325 mg Oral tab [Active]; losartan Oral [Active]; metformin 1,000 mg Oral tr24 [Active]; Metoprolol Tartrate Oral [Active]; prednisone 10 mg Oral tab [Active]; terazosin Oral [Active]; Zantac 150 mg Oral tab [Active]; Zyrtec Oral [Active]; - PMHx: 12:37 Asthma; chronic back pain; COPD; CVA; Emphysema; Myocardial infarction; aj - PSHx: 12:37 CABG; Hernia repair; aj - Immunization history:: Adult Immunizations up to date. - Social history:: Smoking status: Patient/guardian denies using tobacco, Patient uses street drugs, marijuana. - Ebola Screening: : Patient negative for fever greater than or equal to 101.5 degrees Fahrenheit, and additional compatible Ebola Virus Disease symptoms Patient denies exposure to infectious person Patient denies travel to an Ebola-affected area in the 21 days before illness onset No symptoms or risks identified at this time. ROS: 17:58 Constitutional: Negative for fever, chills, and weight loss, Eyes: Negative for injury, kdr pain, redness, and discharge, Neck: Negative for injury, pain, and swelling, Cardiovascular: Negative for chest pain, palpitations, and edema, Abdomen/GI: Negative for abdominal pain, nausea, vomiting, diarrhea, and constipation, Back: Negative for injury and pain, : Negative for injury, bleeding, discharge, and swelling, MS/Extremity: Negative for injury and deformity, Skin: Negative for injury, rash, and discoloration, Neuro: Negative for headache, weakness, numbness, tingling, and seizure activity. Psych: Negative for depression, anxiety, suicide ideation, homicidal ideation, and hallucinations, Allergy/Immunology: Negative for hives, rash, and allergies, Endocrine: Negative for neck swelling, polydipsia, polyuria, polyphagia, and marked weight changes, Hematologic/Lymphatic: Negative for swollen nodes, abnormal bleeding, and unusual bruising. 17:58 Respiratory: Positive for cough, with no reported sputum, wheezing, Negative for dyspnea on exertion, hemoptysis, orthopnea, pleurisy, shortness of breath. Exam: 17:58 Constitutional: This is a well developed, well nourished patient who is awake, alert, kdr and in no acute distress. Head/Face: Normocephalic, atraumatic. Eyes: Pupils equal round and reactive to light, extra-ocular motions intact. Lids and lashes normal. Conjunctiva and sclera are non-icteric and not injected. Cornea within normal limits. Periorbital areas with no swelling, redness, or edema. Neck: Trachea midline, no thyromegaly or masses palpated, and no cervical lymphadenopathy. Supple, full range of motion without nuchal rigidity, or vertebral point tenderness. No Meningismus. Chest/axilla: Normal chest wall appearance and motion. Nontender with no deformity. No lesions are appreciated. Cardiovascular: Regular rate and rhythm with a normal S1 and S2. No gallops, murmurs, or rubs. Normal PMI, no JVD. No pulse deficits. Abdomen/GI: Soft, non-tender, with normal bowel sounds. No distension or tympany. No guarding or rebound. No evidence of tenderness throughout. Back: No spinal tenderness. No costovertebral tenderness. Full range of motion. MS/ Extremity: Pulses equal, no cyanosis. Neurovascular intact. Full, normal range of motion. Neuro: Awake and alert, GCS 15, oriented to person, place, time, and situation. Cranial nerves II-XII grossly intact. Motor strength 5/5 in all extremities. Sensory grossly intact. Cerebellar exam normal. Normal gait. Psych: Awake, alert, with orientation to person, place and time. Behavior, mood, and affect are within normal limits. 17:58 Respiratory: the patient does not display signs of respiratory distress, Respirations: normal, Breath sounds: decreased breath sounds, that are mild, are scattered, wheezin:58 Skin: cellulitis, that is moderate, irregular, on the dorsum of right foot. Vital Signs: 12:37 BP 112 / 86; Pulse 108; Resp 19; Temp 98.2; Pulse Ox 95% on R/A; Weight 95.71 kg; aj Height 5 ft. 9 in. (175.26 cm); 15:45 BP 108 / 70; Pulse 95; Resp 16; Pulse Ox 92% on R/A; la1 15:47 Temp 98.6; la1 12:37 Body Mass Index 31.16 (95.71 kg, 175.26 cm) aj MDM: 14:12 Patient medically screened. kdr 17:58 Data reviewed: vital signs, nurses notes, lab test result(s), radiologic studies. kdr Counseling: I had a detailed discussion with the patient and/or guardian regarding: the historical points, exam findings, and any diagnostic results supporting the discharge/admit diagnosis, lab results, radiology results, the need for further work-up and treatment in the hospital. Physician consultation: Hamzah Dos Santos MD. 05/19 13:08 Order name: CBC with Diff; Complete Time: 14:04 eb 05/19 13:08 Order name: Basic Metabolic Panel eb 05/19 13:08 Order name: Blood Culture Adult (2) eb 05/19 14:19 Order name: Basic Metabolic Panel EDLA 05/19 14:19 Order name: Basic Metabolic Panel EDMS 05/19 14:19 Order name: CBC with Automated Diff EDMS 05/19 13:08 Order name: XRAY Foot RIGHT 3 View eb 05/19 14:19 Order name: Consistent Carb (ADA) [address] EDMS 05/19 14:19 Order name: CBC with Automated Diff EDMS 05/19 14:52 Order name: RAD EDMS Administered Medications: 13:47 Drug: Xopenex (3) 1.25 mg Route: Inhalation; la1 14:43 Drug: vancoMYCIN 1.5 grams Route: IVPB; Rate: calculated rate; Site: right antecubital; la1 15:45 Follow up: IV Status: Infusion continued upon admission la1 15:17 Drug: [place] 10 mg-325 mg 1 tabs Route: PO; la1 15:46 Follow up: Response: No adverse reaction; Pain is decreased la1 Disposition: 05/19/18 14:12 Hospitalization ordered by Hamzah Dos Santos for Inpatient Admission. Preliminary diagnosis is Cellulitis to the right foot. - Bed requested for Telemetry/MedSurg (Inpatient). - Status is Inpatient Admission. la1 - Condition is Fair. - Problem is new. - Symptoms are unchanged. UTI on Admission? No Signatures: Dispatcher [employer] Mayra Simmons RN RN Isaiah Song MD MD [facility] Oc Hylton RN RN [facility] [place] Corrections: (The following items were deleted from the chart) 15:42 14:12 Hospitalization Ordered by Hamzah Dos Santos MD for Inpatient Admission. Preliminary eb diagnosis is Cellulitis to the right foot. Bed requested for Telemetry/MedSurg (Inpatient). Status is Inpatient Admission. Condition is Fair. Problem is new. Symptoms are unchanged. UTI on Admission? No. kdr 16:41 15:42 05/19/2018 14:12 Hospitalization Ordered by Hamzah Dos Santos MD for Inpatient la1 Admission. Preliminary diagnosis is Cellulitis to the right foot. Bed requested for Telemetry/MedSurg (Inpatient). Status is Inpatient Admission. Condition is Fair. Problem is new. Symptoms are unchanged. UTI on Admission? No. eb
[2018-05-19] MEDS ORDERED: ONDANSETRON 4 MG/2 ML VIAL IV PRN (14:14)
[2018-05-19] MEDS ORDERED: GLUCAGON 1 MG/VIAL IM PRN (14:14)
[2018-05-19] MEDS ORDERED: D50W 25 GM/50 ML SYRINGE IV PRN (14:14)
--- NOTE | 2018-05-19 14:51 | RAD REPORT ---
EXAM DESCRIPTION: RAD - Foot Right 3 View - 05/19/2018 2:30 pm CLINICAL HISTORY: Right foot pain FINDINGS: No fracture or dislocation is seen. No bony destructive lesion is seen. Bones are osteoporotic
[2018-05-19] MEDS ORDERED: HYDROCODONE/APAP 10/325 TAB ONE (15:12)
[2018-05-19 17:09] VITALS: BMI 31.1
[2018-05-19] MEDS: INSULIN -REGULAR HUMAN 50 UNIT/0.5 ML ML SQ SCH ×2 (17:17→22:12)
[2018-05-19] MEDS: MORPHINE 4 MG/ML SYR IV PRN (18:47)
[2018-05-19] MEDS ORDERED: VANCOMYCIN 1GM/D5W 200 ML IV SCH (21:00)
[2018-05-19] MEDS: ACETAMINOPHEN 500 MG TAB PO PRN (23:48)
[2018-05-20] MEDS: VANCOMYCIN 1.5 GM in NA CHLORIDE 0.9% 500 ML IVPB SCH ×2 (02:03→14:25)
[2018-05-20 04:11] LABS: Urine Appearance CLEAR; Urine Bilirubin NEGATIVE (NEG); Urine Blood NEGATIVE (NEG); Urine Color YELLOW; Urine Glucose TRACE (NEG); Urine Protein NEGATIVE (NEG); Urine Urobilinogen 0.2 mg/dL (0.2-1.0); Urine pH 6.5 (5.0-7.0)
[2018-05-20 04:20] LABS: Urine Microscopic Reflex ORDER UMIC
[2018-05-20 04:41] LABS: Urine Bacteria <20 /HPF (NONE SEEN); Urine Culture Reflex Order REFLEXED; Urine RBC <5 /HPF (NONE SEEN)
[2018-05-20] MEDS: MORPHINE 4 MG/ML SYR IV PRN ×4 (04:55→22:58)
[2018-05-20 05:03] LABS: Absolute Lymphocytes (CBC) 1.6 K/uL (0.7-4.9); Absolute Monocytes 0.8 K/uL (0.1-1.3); Absolute Neutrophil 6.1 K/uL (1.8-8.0); Basophils % 0.3 % (0-1.3); Eosinophils % 2.2 % (0-4.4); Hematocrit 32.2 % (39.6-49.0); Lymphocytes % 18.5 % (15.3-44.8); MCH 26.1 pg (27.0-35.0); MCV 79.2 fL (80-100); MPV 7.7 fL (7.6-11.3); RBC Red Blood Cell Count 4.06 M/uL (4.33-5.43)
[2018-05-20 05:11] LABS: BUN Blood Urea Nitrogen 9 mg/dL (7-18); Bicarbonate 31 mmol/L (21-32); Glucose Level 153 mg/dL (74-106); Potassium 4.1 mmol/L (3.5-5.1); Sodium Level 140 mmol/L (136-145)
[2018-05-20] MEDS: INSULIN -REGULAR HUMAN 50 UNIT/0.5 ML ML SQ SCH ×4 (08:30→21:27)
[2018-05-20] MEDS: ACETAMINOPHEN 500 MG TAB PO PRN (08:32)
[2018-05-20] MEDS: ALBUTEROL 2.5 MG/3 ML NEB SOL NEB SCH ×2 (13:20→21:49)
[2018-05-20] MEDS: ENOXAPARIN 30 MG/0.3 ML SQ SCH (16:32)
--- NOTE | 2018-05-20 16:33 | HP ---
Date of Admission: 05/19/2018 Chief Complaint: Pain, redness, right foot. History Of Present Illness: A 73-year-old male who had recent immobilization of the right leg was fo und to have open wound and redness with pain. He was brought to the ER and he was found to have evid ence of cellulitis. The patient is admitted. There is no history of fever, chills, or rigors. Past Medical History: The patient is known to have history of asthma, COPD, old stroke, history of c oronary artery disease, type 2 diabetes. Past Surgical History: Positive for hernia surgery, coronary bypass surgery. Family History: Noncontributory. Personal History: Currently nonsmoker. Home Medicines: Aspirin, glimepiride, metformin, hydrocodone, Lopressor, prednisone, Zantac, and Zyr shirin. Review of Systems: No chest pain. Physical Examination: General: Revealed a 73-year-old male, in [id number] pain. Vital Signs: Normal otherwise. HEENT: Negative. Neck: Supple. JVD negative. Chest: Bilateral scattered wheezes. Chest shows old scar. Abdomen: Soft. Extremities: He has a splint on the right leg. However, the dorsum of the foot is red, tender with some drainage from the open wound. Laboratory Data: White count 12.1. Chem profile; normal BUN and creatinine. Random blood sugar of 191. Assessment: 1.Cellulitis, right foot. 2.Type 2 diabetes. 3.Known coronary artery disease. 4.Chronic obstructive pulmonary disease. Plan: The patient is started on vancomycin, which will be continued. He is on sliding scale. His m edications will be restarted. In view of his diabetes, very likely the patient is going to need IV a ntibiotics for several days. RONNELL/CRISS Voice ID: [id number]
[2018-05-20] MEDS: ATORVASTATIN 20 MG TAB PO SCH (21:29)
[2018-05-20] MEDS: TERAZOSIN HCL 5 MG CAP PO SCH (21:29)
[2018-05-20] MEDS: HYDROCODONE/APAP 10/325 TAB PO PRN (21:30)
[2018-05-20] MEDS: TRAZODONE 50 MG TABLET PO SCH (21:30)
[2018-05-21] MEDS: ALBUTEROL 2.5 MG/3 ML NEB SOL NEB SCH ×4 (02:00→20:35)
[2018-05-21] MEDS: VANCOMYCIN 1.5 GM in NA CHLORIDE 0.9% 500 ML IVPB SCH ×2 (03:05→14:00)
[2018-05-21] MEDS: MORPHINE 4 MG/ML SYR IV PRN ×5 (03:07→20:17)
[2018-05-21] MEDS: INSULIN -REGULAR HUMAN 50 UNIT/0.5 ML ML SQ SCH ×4 (08:50→20:49)
[2018-05-21] MEDS: GLIMEPIRIDE 2 MG TABLET PO SCH (08:51)
[2018-05-21] MEDS: CETIRIZINE HCL 5 MG TABLET PO SCH (08:51)
[2018-05-21] MEDS: METOPROLOL TAR 50 MG TAB PO SCH (08:51)
[2018-05-21] MEDS: ASPIRIN EC 81 MG TAB PO SCH (08:51)
[2018-05-21] MEDS: RANITIDINE 150 MG TABLET PO SCH (08:53)
[2018-05-21] MEDS: LOSARTAN POTASSIUM 50 MG TABLET PO SCH (08:53)
[2018-05-21] MEDS: predniSONE 10 MG TAB PO SCH (08:53)
[2018-05-21] MEDS: HOME MED 1 EA UNK (Umeclidinium Brm/Vilanterol Tr [Anoro Ellipta 62.5-25 Mcg Inh] 1 PUFF) IH SCH (09:00)
[2018-05-21] MEDS: ACETAMINOPHEN 500 MG TAB PO PRN (11:13)
[2018-05-21] MEDS: BISACODYL E.C. 5 MG TAB PO PRN (12:05)
[2018-05-21] MEDS: ENOXAPARIN 30 MG/0.3 ML SQ SCH (17:13)
[2018-05-21] MEDS: TRAZODONE 50 MG TABLET PO SCH (20:20)
[2018-05-21] MEDS: ATORVASTATIN 20 MG TAB PO SCH (20:21)
[2018-05-21] MEDS: TERAZOSIN HCL 5 MG CAP PO SCH (20:21)
[2018-05-22] MEDS: MORPHINE 4 MG/ML SYR IV PRN ×6 (00:18→23:40)
--- NOTE | 2018-05-22 01:16 | PN ---
The patient's leg still looks inflamed and infected. The patient claims that it is feeling better. However, it will be examined tomorrow. He might need debridement. RONNELL/CRISS Voice ID: [id number] Report ID: [id number]
[2018-05-22] MEDS: VANCOMYCIN 1.5 GM in NA CHLORIDE 0.9% 500 ML IVPB SCH ×2 (02:32→13:13)
[2018-05-22] MEDS: ALBUTEROL 2.5 MG/3 ML NEB SOL NEB SCH ×4 (03:15→20:08)
[2018-05-22] MEDS: INSULIN -REGULAR HUMAN 50 UNIT/0.5 ML ML SQ SCH ×4 (07:30→21:49)
[2018-05-22] MEDS: HOME MED 1 EA UNK (Umeclidinium Brm/Vilanterol Tr [Anoro Ellipta 62.5-25 Mcg Inh] 1 PUFF) IH SCH (09:00)
[2018-05-22] MEDS: predniSONE 10 MG TAB PO SCH (09:02)
[2018-05-22] MEDS: CETIRIZINE HCL 5 MG TABLET PO SCH (09:02)
[2018-05-22] MEDS: RANITIDINE 150 MG TABLET PO SCH (09:02)
[2018-05-22] MEDS: ASPIRIN EC 81 MG TAB PO SCH (09:03)
[2018-05-22] MEDS: GLIMEPIRIDE 2 MG TABLET PO SCH (09:03)
[2018-05-22] MEDS: LOSARTAN POTASSIUM 50 MG TABLET PO SCH (09:04)
[2018-05-22] MEDS: METOPROLOL TAR 50 MG TAB PO SCH (09:05)
[2018-05-22] MEDS: ESCITALOPRAM 20 MG TAB PO SCH (10:03)
[2018-05-22] MEDS: HYDROCODONE/APAP 10/325 TAB PO PRN (13:10)
--- NOTE | 2018-05-22 15:46 | CON ---
Date of Consultation: 05/22/2018 Brief Hpi: The patient is a 73-year-old male with history of Achilles tendon rupture recen tly and was placed in a cast of his right lower extremity, his foot area. He noted that he started h aving swelling and pain to the dorsal aspect of his foot with redness, swelling, and a wound in the a mindi. The redness extended all the way, include all of his toes from approximately the second web spa ce and onto his ankle joint. Since being admitted to the hospital, he states that the redness has go tten significantly better, the pain has gotten significantly better, he feels much better, and he is concerned about the wound currently. Past Medical History: Known for asthma, COPD, an old stroke, history of coronary disease, type 2 alfred betes. Past Surgical History: Hernia surgery, coronary artery bypass surgery. Family History: Noncontributory. Personal History: He quit smoking 11 years ago, but currently smokes marijuana daily. Home Medications: Include aspirin, glimepiride, metformin, hydrocodone, Lopressor, prednisone, Zanta c and Zyrtec. Allergies: TO PROCAINE AND DIPHENHYDRAMINE. Review of Systems: A 10-point review of systems other than HPI, denies. Physical Examination: Vital signs: His BMI is 31.2. Blood pressure 136/74, pulse is 87, respiratory rate 20, temperature 98.2. General: He is awake, alert, oriented. Psychiatric: He is appropriate. and conversive. HEENT: He is normocephalic. Sclerae anicteric. Mucous members are moist. Oropharynx clear. Neck: Supple. No JVD. Normal expansion and excursion. Cardiovascular: Regular rate and rhythm. Pulmonary: Clear to auscultation bilaterally. Abdomen: Soft, nontender, nondistended. Extremities: Focused examination of the extremities shows a dorsal wound, approximately size of 7-8 cm, not including the toes on the dorsal aspect of the right foot extending up to the mid foot area. There is an open wound on the top. There are no drainable collections at this time. There is some necrosis to the skin, but no active purulent discharge. It is simple clear discharge at this time an d he has a stable appearing wound, which is well demarcated. Laboratory Data: Reveals a white blood count of 8.8, hemoglobin 10.6, hematocrit 32.2, platelet coun t is 165. His chemistry showed a glucose of 144 on the last check. He has had a foot x-ray, which w as officially read as no fracture, dislocation seen. No bony destructive lesions. Bones are osteopo rotic. Assessment And Plan: This is a 73-year-old male, who comes in with signs and symptoms of cellulitis to the right foot. 1.IV fluid hydration. 2.Continue antibiotic coverage for methicillin-resistant staphylococcus aureus, which is confirmed o n culture. Elevation, Wound care with damp-to-dry dressing changes on the top of the foot and serial exams. I have explained the risks, benefits, alternatives of operative versus nonoperative manageme nt, current process, and should he develop a drainable collection or worsening necrosis to the area o ther than the superficial skin, he will likely require debridement. He agrees to proceed as indicate d. BLAYNE/CRISS Voice ID: [id number] Report ID: [id number]
[2018-05-22] MEDS: ENOXAPARIN 30 MG/0.3 ML SQ SCH (17:18)
[2018-05-22] MEDS: TERAZOSIN HCL 5 MG CAP PO SCH (21:48)
[2018-05-22] MEDS: ATORVASTATIN 20 MG TAB PO SCH (21:48)
[2018-05-22] MEDS: TRAZODONE 50 MG TABLET PO SCH (21:48)
--- NOTE | 2018-05-23 00:44 | PN ---
The patient's leg still has considerable amount of swelling, redness, and drainage. Wound cultures a re positive for MRSA. Surgical consultation was done to see whether debridement would make the wound heal faster. RONNELL/CRISS Voice ID: [id number] Report ID: [id number]
[2018-05-23] MEDS: HYDROCODONE/APAP 10/325 TAB PO PRN ×3 (01:22→17:49)
[2018-05-23] MEDS: VANCOMYCIN 1.5 GM in NA CHLORIDE 0.9% 500 ML IVPB SCH ×2 (01:22→15:02)
[2018-05-23] MEDS: ALBUTEROL 2.5 MG/3 ML NEB SOL NEB SCH ×4 (01:57→20:09)
[2018-05-23] MEDS: MORPHINE 4 MG/ML SYR IV PRN ×4 (06:12→20:43)
[2018-05-23] MEDS: INSULIN -REGULAR HUMAN 50 UNIT/0.5 ML ML SQ SCH ×4 (07:30→22:00)
[2018-05-23] MEDS: ASPIRIN EC 81 MG TAB PO SCH (09:00)
[2018-05-23] MEDS: CETIRIZINE HCL 5 MG TABLET PO SCH (09:00)
[2018-05-23] MEDS: HOME MED 1 EA UNK (Umeclidinium Brm/Vilanterol Tr [Anoro Ellipta 62.5-25 Mcg Inh] 1 PUFF) IH SCH (09:00)
[2018-05-23] MEDS: RANITIDINE 150 MG TABLET PO SCH (09:00)
[2018-05-23] MEDS: predniSONE 10 MG TAB PO SCH (09:00)
[2018-05-23] MEDS: GLIMEPIRIDE 2 MG TABLET PO SCH (09:00)
[2018-05-23] MEDS: ESCITALOPRAM 20 MG TAB PO SCH (09:01)
[2018-05-23] MEDS: METOPROLOL TAR 50 MG TAB PO SCH (09:01)
[2018-05-23] MEDS: LOSARTAN POTASSIUM 50 MG TABLET PO SCH (09:01)
[2018-05-23] MEDS: COLLAGENASE 30 GM OINTMENT TOP SCH (10:14)
[2018-05-23] MEDS: ENOXAPARIN 30 MG/0.3 ML SQ SCH (16:34)
[2018-05-23] MEDS: BISACODYL E.C. 5 MG TAB PO PRN (17:49)
--- NOTE | 2018-05-23 21:20 | PN ---
The patient still has considerable swelling and redness and open wound, however, this looks better th an yesterday. Surgery consultation also suggested continued IV antibiotic therapy and not to have mario rgical exploration. The patient will be continued on the same management. RONNELL/CRISS Voice ID: [id number] Report ID: [id number]
[2018-05-23] MEDS: TRAZODONE 50 MG TABLET PO SCH (22:01)
[2018-05-23] MEDS: ATORVASTATIN 20 MG TAB PO SCH (22:01)
[2018-05-23] MEDS: TERAZOSIN HCL 5 MG CAP PO SCH (22:03)
[2018-05-24] MEDS: VANCOMYCIN 1.5 GM in NA CHLORIDE 0.9% 500 ML IVPB SCH ×2 (01:06→13:22)
[2018-05-24] MEDS: MORPHINE 4 MG/ML SYR IV PRN ×2 (01:06→10:20)
[2018-05-24] MEDS: ALBUTEROL 2.5 MG/3 ML NEB SOL NEB SCH ×4 (03:05→20:30)
[2018-05-24] MEDS: HOME MED 1 EA UNK (Umeclidinium Brm/Vilanterol Tr [Anoro Ellipta 62.5-25 Mcg Inh] 1 PUFF) IH SCH (09:00)
[2018-05-24] MEDS: ASPIRIN EC 81 MG TAB PO SCH (09:00)
[2018-05-24] MEDS: INSULIN -REGULAR HUMAN 50 UNIT/0.5 ML ML SQ SCH ×4 (09:15→21:33)
[2018-05-24] MEDS: GLIMEPIRIDE 2 MG TABLET PO SCH (09:16)
[2018-05-24] MEDS: LOSARTAN POTASSIUM 50 MG TABLET PO SCH (09:17)
[2018-05-24] MEDS: CETIRIZINE HCL 5 MG TABLET PO SCH (09:17)
[2018-05-24] MEDS: RANITIDINE 150 MG TABLET PO SCH (09:17)
[2018-05-24] MEDS: ESCITALOPRAM 20 MG TAB PO SCH (09:17)
[2018-05-24] MEDS: METOPROLOL TAR 50 MG TAB PO SCH (09:18)
[2018-05-24] MEDS: predniSONE 10 MG TAB PO SCH (09:19)
[2018-05-24] MEDS: COLLAGENASE 30 GM OINTMENT TOP SCH (09:20)
[2018-05-24] MEDS: HYDROCODONE/APAP 10/325 TAB PO PRN ×2 (14:31→21:40)
[2018-05-24] MEDS: ENOXAPARIN 30 MG/0.3 ML SQ SCH (17:15)
[2018-05-24] MEDS: TRAZODONE 50 MG TABLET PO SCH (21:32)
[2018-05-24] MEDS: TERAZOSIN HCL 5 MG CAP PO SCH (21:33)
[2018-05-24] MEDS: ATORVASTATIN 20 MG TAB PO SCH (21:33)
[2018-05-24] MEDS ORDERED: NA CHLORIDE 0.9% 100 ML ONE (22:18)
[2018-05-25] MEDS: VANCOMYCIN 1.5 GM in NA CHLORIDE 0.9% 500 ML IVPB SCH ×2 (01:34→14:08)
[2018-05-25] MEDS: ALBUTEROL 2.5 MG/3 ML NEB SOL NEB SCH ×4 (01:59→20:12)
--- NOTE | 2018-05-25 03:15 | PN ---
The patient's foot looks more improved, however, he still has considerable redness and swelling. The patient will be given IV vancomycin for another 24 hours. After that, very likely the patient will be changed to oral antibiotic and discharged and followed up in the office. RONNELL/CRISS Voice ID: [id number] Report ID: [id number]
[2018-05-25] MEDS: INSULIN -REGULAR HUMAN 50 UNIT/0.5 ML ML SQ SCH ×4 (07:30→21:00)
--- NOTE | 2018-05-25 08:53 | P.PN ---
Subjective Date of Service: 05/25/18 Chief Complaint: right foot wound Subjective: Improving (redness receeding, minimal pain, much improved) Physical Examination - Vital Signs Temperature: 97.8 F Blood Pressure: 134/87 Pulse: 69 Respirations: 18 Pulse Ox (%): 94 - Physical Exam General: Alert, In no apparent distress Integumentary: Other (right foot wound is improving, drying out, demarkating, cellulitis improving ) - Studies Microbiology Data (last 24 hrs): 05/19/18 13:35 Blood - Blood Aerobic Blood Culture - Final No growth in 5 days. 05/19/18 13:35 Blood - Blood Anaerobic Blood Culture - Final No growth in 5 days. 05/19/18 13:20 Blood - Blood Aerobic Blood Culture - Final No growth in 5 days. 05/19/18 13:20 Blood - Blood Anaerobic Blood Culture - Final No growth in 5 days. Assessment And Plan - Current Problems (Diagnosis) (1) Cellulitis of right foot Onset Date: 05/22/18 Current Visit: Yes Status: Acute Plan: - continue antibiotics - daily wound care with santyl and damp to dry dressings - follow up in 1 week
[2018-05-25] MEDS: METOPROLOL TAR 50 MG TAB PO SCH (09:39)
[2018-05-25] MEDS: RANITIDINE 150 MG TABLET PO SCH (09:39)
[2018-05-25] MEDS: ASPIRIN EC 81 MG TAB PO SCH (09:39)
[2018-05-25] MEDS: LOSARTAN POTASSIUM 50 MG TABLET PO SCH (09:40)
[2018-05-25] MEDS: CETIRIZINE HCL 5 MG TABLET PO SCH (09:40)
[2018-05-25] MEDS: predniSONE 10 MG TAB PO SCH (09:40)
[2018-05-25] MEDS: ESCITALOPRAM 20 MG TAB PO SCH (09:40)
[2018-05-25] MEDS: GLIMEPIRIDE 2 MG TABLET PO SCH (09:40)
[2018-05-25] MEDS: COLLAGENASE 30 GM OINTMENT TOP SCH (09:41)
[2018-05-25] MEDS: HOME MED 1 EA UNK (Umeclidinium Brm/Vilanterol Tr [Anoro Ellipta 62.5-25 Mcg Inh] 1 PUFF) IH SCH (09:42)
[2018-05-25] MEDS: HYDROCODONE/APAP 10/325 TAB PO PRN ×3 (12:08→21:22)
[2018-05-25] MEDS: ENOXAPARIN 30 MG/0.3 ML SQ SCH (17:19)
--- NOTE | 2018-05-25 18:15 | PN ---
The patient is doing much better. He is afebrile. He is able to bend his ankle and toes without baudilio n. The patient very likely will be discharged in a.m. on oral antibiotics. RONNELL/CRISS Voice ID: [id number] Report ID: [id number]
[2018-05-25] MEDS: TERAZOSIN HCL 5 MG CAP PO SCH (21:21)
[2018-05-25] MEDS: ATORVASTATIN 20 MG TAB PO SCH (21:22)
[2018-05-25] MEDS: TRAZODONE 50 MG TABLET PO SCH (21:22)
[2018-05-26] MEDS ORDERED: NA CHLORIDE 0.9% 100 ML ONE (00:47)
[2018-05-26] MEDS: VANCOMYCIN 1.5 GM in NA CHLORIDE 0.9% 500 ML IVPB SCH (00:59)
[2018-05-26] MEDS: ALBUTEROL 2.5 MG/3 ML NEB SOL NEB SCH ×2 (02:12→07:47)
[2018-05-26 09:02] VITALS: BP 190/89; TEMP 97.3
[2018-05-26 10:47] VITALS: O2SAT 96
== END 2018-05-26 11:31 | disposition home or self-care (01) | DRG 603 ==
LOC: ER 12:25 → ERHOLD 14:13 → 2ND 16:25
PROVIDERS: ADMIT Internal Medicine; ATTEND Internal Medicine
DX: L03.115 Cellulitis of right lower limb (principal); B95.62 Methicillin resistant Staphylococcus aureus infection as the cause of diseases classified elsewhere; J44.9 Chronic obstructive pulmonary disease, unspecified; I25.10 Atherosclerotic heart disease of native coronary artery without angina pectoris; E11.9 Type 2 diabetes mellitus without complications; F12.90 Cannabis use, unspecified, uncomplicated; Z95.1 Presence of aortocoronary bypass graft; Z79.82 Long term (current) use of aspirin
CPT/HCPCS: 36415; 80048; 80202; 81003; 81015; 82565; 82962; 85025; 87040; 87070; 87077; 87086; 87088; 87186; 87205; 94640; 96365; 99285; J1650; J3590; J7512

== ENCOUNTER 2018-07-19 07:11 | Day surgery (SDC) | payer OTHER ==
[2018-07-19] MEDS ORDERED: NA CHLORIDE 0.9% 1,000 ML ONE (07:38)
[2018-07-19] MEDS ORDERED: SIMETHICONE 40 MG/ 0.6 ML ONE (07:58)
[2018-07-19] MEDS ORDERED: LIDOCAINE 1% MPF 5 ML VIAL ONE (08:24)
[2018-07-19] MEDS ORDERED: PROPOFOL 200 MG/20 ML VIAL IV ONE (08:24)
--- NOTE | 2018-07-19 08:56 | ENDO RPT ---
[address], [address] COLONOSCOPY PROCEDURE REPORT EXAM DATE: 07/19/2018 PATIENT NAME: Rick Xavier MR #: [id number] BIRTHDATE: 1945 ATTENDING: Heri Thompson DR STATUS: outpatient CRADLE PLACER: Mile Hayes RN and Evelio Ford [facility] INDICATIONS: The patient is a 73 yr old Male here for a colonoscopy due to colon cancer screening PROCEDURE PERFORMED: Colonoscopy with biopsy - cold polypectomy MEDICATIONS: Per Anesthesia. ESTIMATED BLOOD LOSS: None CONSENT: The patient understands the risks and benefits of the procedure and understands that these risks include, but are not limited to: sedation, allergic reaction, infection, perforation and/or bleeding. Alternative means of evaluation and treatment include, among others: physical exam, x-rays, and/or surgical intervention. The patient elects to proceed with this endoscopic procedure. DESCRIPTION OF PROCEDURE: During intra-op preparation period all mechanical medical equipment was checked for proper function. Hand hygiene and appropriate measures for infection prevention was taken. Procedure, possible complications, alternatives including, but not limited to possibility of bleeding, perforation, tear, infection, sepsis, need for surgery, need for blood transfusion, were explained to the patient. After the risks, benefits and alternatives of the procedure were thoroughly explained, Informed consent was verified, confirmed and timeout was successfully executed by the treatment team. The patient was placed in the left lateral position. A digital rectal exam was performed and revealed an enlarged prostate. After appropriate level of anesthesia, the scope was passed. The EC-[id number] ([id number]) endoscope was introduced through the anus and advanced to the cecum, which was identified by both the appendix and ileocecal valve. The quality of the prep was fair. The instrument was then slowly withdrawn as the colon was fully examined. Scope withdrawal time was 10 minutes. COLON FINDINGS: Mild diverticulosis was noted in the sigmoid colon. No bleeding was noted from the diverticulosis. Three small smooth semi-pedunculated polyps with friable surfaces were found in the transverse colon, sigmoid colon, and rectum. A polypectomy was performed with a cold snare. The resection was complete, the polyp tissue was completely retrieved and sent to histology. Retroflexed views revealed no abnormalities. The scope was then completely withdrawn from the patient and the procedure terminated. ADVERSE EVENTS: There were no complications. IMPRESSIONS: 1. Mild diverticulosis was noted in the sigmoid colon 2. Three small semi-pedunculated polyps were found in the transverse colon, sigmoid colon, and rectum; polypectomy was performed with a cold snare RECOMMENDATIONS: 1. avoid NSAIDS for 2 weeks 2. await biopsy results 3. fiber rich diet 4. follow-up: office 2 week(s) 5. yearly hemoccult starting in 4 years RECALL: Return in 3 year(s) for Colonoscopy, pending biopsy results. Pending biopsy Heri Thompson DR eSigned: Heri Thompson DR 07/19/2018 8:56 AM cc: CPT CODES: ICD9 CODES: PATIENT NAME: Rick XavierMisael MR#: [id number]
[2018-07-19 09:37] VITALS: BP 168/84; TEMP 97.1; O2SAT 96
== END 2018-07-19 09:30 | disposition home or self-care (01) ==
LOC: OR 07:11
PROVIDERS: ATTEND Surgery
PROC: 0DBL8ZX Excision of Transverse Colon, Via Natural or Artificial Opening Endoscopic, Diagnostic (ICD-10-PCS; 2018-07-19)
PROC: 0DBN8ZX Excision of Sigmoid Colon, Via Natural or Artificial Opening Endoscopic, Diagnostic (ICD-10-PCS; 2018-07-19)
PROC: 0DBP8ZX Excision of Rectum, Via Natural or Artificial Opening Endoscopic, Diagnostic (ICD-10-PCS; principal; 2018-07-19 08:30)
DX: Z12.11 Encounter for screening for malignant neoplasm of colon (principal); D12.5 Benign neoplasm of sigmoid colon; D12.3 Benign neoplasm of transverse colon; D12.8 Benign neoplasm of rectum; K57.30 Diverticulosis of large intestine without perforation or abscess without bleeding; E11.9 Type 2 diabetes mellitus without complications; I25.10 Atherosclerotic heart disease of native coronary artery without angina pectoris; J44.9 Chronic obstructive pulmonary disease, unspecified; J45.909 Unspecified asthma, uncomplicated; Z79.82 Long term (current) use of aspirin; Z88.8 Allergy status to other drugs, medicaments and biological substances; Z86.73 Personal history of transient ischemic attack (TIA), and cerebral infarction without residual deficits; Z87.891 Personal history of nicotine dependence
CPT/HCPCS: 45380; 82962; 88305; J2704; J7030

== ENCOUNTER 2019-02-24 23:59 | Observation (INO) | payer OTHER ==
[2019-02-25 01:00] LABS: Basophils % 0.5 % (0-1.3); Eosinophils % 4.6 % (0-4.4); Hematocrit 36.6 % (39.6-49.0); Lymphocytes % 23.5 % (15.3-44.8); MPV 8.2 fL (7.6-11.3); Monocytes % 8.4 % (3.3-12.3); RBC Red Blood Cell Count 4.76 M/uL (4.33-5.43)
[2019-02-25 01:09] LABS: Protime INR 1.04
[2019-02-25] MEDS ORDERED: NA CHLORIDE 0.9% 1,000 ML ONE (01:20)
[2019-02-25] MEDS ORDERED: NA CHLORIDE 0.9% 500 ML ONE (01:20)
[2019-02-25 01:21] LABS: ALT/SGPT 22 U/L (12-78); AST/SGOT 15 U/L (15-37); Albumin 3.6 g/dL (3.4-5.0); Alkaline Phosphatase 103 U/L (45-117); BUN Blood Urea Nitrogen 14 mg/dL (7-18); Bicarbonate 27 mmol/L (21-32); Bilirubin Direct < 0.1 mg/dL (0-0.2); Bilirubin Total 0.4 mg/dL (0.2-1.0); Glucose Level 155 mg/dL (74-106); Lipase 138 U/L (73-393); Magnesium 2.2 mg/dL (1.8-2.4); NT PRO-BNP 94 pg/mL (<125); Potassium 4.4 mmol/L (3.5-5.1); Protein, Total 7.2 g/dL (6.4-8.2); Sodium Level 139 mmol/L (136-145); Troponin (Emerg Dept Use Only) 0.02 ng/mL (0.0-0.045)
--- NOTE | 2019-02-25 01:37 | ER ---
Nurse's Notes 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 pt denies SOB. Transition of care: patient was not received from another setting of care. Onset of symptoms is unknown. Risk Assessment: Do you want to hurt yourself or someone else? Patient reports no desire to harm self or others. Initial Sepsis Screen: Does the patient meet any 2 criteria? No. Patient's initial sepsis screen is negative. Does the patient have a suspected source of infection? No. Patient's initial sepsis screen is negative. Care prior to arrival: None. 00:35 Method Of Arrival: Ambulatory ak1 00:35 Acuity: MAX 3 ak1 Triage Assessment: 00:43 General: Appears in no apparent distress. Behavior is calm, cooperative. Pain: ak1 Complains of pain in anterior aspect of right upper chest, anterior aspect of left upper chest, diaphragm, xyphoid area, mid-sternal area, right breast and left breast. EENT: No signs and/or symptoms were reported regarding the EENT system. Neuro: No deficits noted. Cardiovascular: Reports chest pain, Heart tones S1 S2. Respiratory: No deficits noted. GI: No signs and/or symptoms were reported involving the gastrointestinal system. : No signs and/or symptoms were reported regarding the genitourinary system. Derm: No signs and/or symptoms reported regarding the dermatologic system. Musculoskeletal: No signs and/or symptoms reported regarding the musculoskeletal system. Historical: - Allergies: 00:43 procaine HCl; ak1 00:43 PENICILLINS; ak1 00:43 diphenhydramine HCl; ak1 00:43 novacaine; ak1 - Home Meds: 00:43 aspirin 81 mg Oral TbEC [Active]; Zantac 150 mg Oral tab [Active]; terazosin Oral ak1 [Active]; prednisone 5 mg oral tab [Active]; glimepiride 4 mg oral tab 1 tab twice daily [Active]; hydrocodone-acetaminophen 10-325 mg Oral tab [Active]; losartan Oral [Active]; Metoprolol Tartrate Oral [Active]; metformin 1,000 mg Oral tr24 [Active]; zyzol [Active]; Lexapro 20 mg Oral tab 1 tab once daily [Active]; trazodone Oral [Active]; atorvastatin oral oral [Active]; - PMHx: 00:43 Asthma; chronic back pain; COPD; Emphysema; Myocardial infarction; CVA; Diabetes - ak1 NIDDM; Depression; - PSHx: 00:43 Hernia repair; CABG; cataracts; neck sx; facial bone sx; ak1 - Immunization history:: Adult Immunizations unknown. - Social history:: Smoking status: unknown. - Ebola Screening: : No symptoms or risks identified at this time. Screenin:46 Abuse screen: Denies threats or abuse. Denies injuries from another. Nutritional ak1 screening: No deficits noted. Tuberculosis screening: No symptoms or risk factors identified. Fall Risk Assessment: 00:45 Reassessment: see triage assessment. Pain: Pain does not radiate. 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 01:00 Reassessment: pt finished oral contrast, CT notified. ak1 01:31 Reassessment: Patient appears in no apparent distress at this time. Patient states ak1 symptoms have improved. 02:40 Reassessment: Patient appears in no apparent distress at this time. Patient and/or ak1 family updated on plan of care and expected duration. Pain level reassessed. Patient is alert, oriented x 3, equal unlabored respirations, skin warm/dry/pink. Patient states feeling better. 04:00 Reassessment: Patient appears in no apparent distress at this time. Patient and/or ak1 family updated on plan of care and expected duration. Pain level reassessed. Patient is alert, oriented x 3, equal unlabored respirations, skin warm/dry/pink. Patient denies pain at this time. General: Appears in no apparent distress. comfortable. 06:15 General: Appears in no apparent distress. comfortable, Behavior is calm, cooperative. ak1 Neuro: No deficits noted. Cardiovascular: Heart tones S1 S2. Respiratory: No deficits noted. GI: No signs and/or symptoms were reported involving the gastrointestinal system. : No signs and/or symptoms were reported regarding the genitourinary system. EENT: No signs and/or symptoms were reported regarding the EENT system. Derm: No signs and/or symptoms reported regarding the dermatologic system. 07:15 Reassessment: Patient appears in no apparent distress at this time. Patient and/or hb family updated on plan of care and expected duration. Pain level reassessed. Patient is alert, oriented x 3, equal unlabored respirations, skin warm/dry/pink. 08:15 Reassessment: Patient appears in no apparent distress at this time. No changes from hb previously documented assessment. Patient and/or family updated on plan of care and expected duration. Pain level reassessed. Patient is alert, oriented x 3, equal unlabored respirations, skin warm/dry/pink. 09:00 Reassessment: Patient appears in no apparent distress at this time. No changes from hb previously documented assessment. Patient and/or family updated on plan of care and expected duration. Pain level reassessed. Patient is alert, oriented x 3, equal unlabored respirations, skin warm/dry/pink. 09:06 Reassessment: Attempted to call report to floor, room not yet clean at this time. Vital Signs: 00:05 BP 134 / 68; Pulse 80; Resp 18; Temp 98.2(O); Pulse Ox 97% on R/A; Weight 95.71 kg (R); ak1 Height 5 ft. 9 in. (175.26 cm) (R); Pain 10/10; 00:35 BP 106 / 83; Pulse 79; Resp 18; Pulse Ox 96% on R/A; ak1 01:31 BP 141 / 81; Pulse 70; Resp 18; Pulse Ox 95% on R/A; ak1 02:30 BP 137 / 63; Pulse 101; Resp 17 S; Pulse Ox 97% on R/A; jd3 03:30 BP 138 / 78; Pulse 69; Resp 17 S; Pulse Ox 95% on R/A; jd3 04:15 BP 172 / 92; Pulse 92; Resp 18 S; Pulse Ox 95% on R/A; jd3 06:16 BP 173 / 83; Pulse 69; Resp 16; Temp 98.2; Pulse Ox 95% on R/A; ak1 07:15 BP 160 / 72; Pulse 65; Resp 1; Pulse Ox 100% on R/A; hb 08:00 BP 172 / 72; Pulse 68; Resp 14; Pulse Ox 100% on R/A; hb 09:00 BP 146 / 81; Pulse 73; Resp 15; Pulse Ox 98% on R/A; hb 00:05 Body Mass Index 31.16 (95.71 kg, 175.26 cm) ak1 ED Course: 00:02 Patient arrived in ED. es 00:03 Hamzah Dos Santos MD is Private Physician. es 00:22 Onur Ramírez MD is Attending Physician. kiley 00:32 Isabelle Hyatt, GAEL is Primary Nurse. ak1 00:36 Triage completed. ak1 00:41 Inserted saline lock: 20 gauge in right forearm, using aseptic technique. Blood oe collected. 00:43 Arm band placed on Patient placed in an exam room, on a stretcher, on youth nutritional monitor, ak1 on pulse oximetry, Patient notified of wait time. 00:45 No provider procedures requiring assistance completed. Patient maintains SpO2 ak1 saturation greater than 95% on room air. 00:46 Patient has correct armband on for positive identification. Placed in gown. Bed in low ak1 position. Call light in reach. Side rails up X2. Adult w/ patient. youth nutritional monitor on. Pulse ox on. NIBP on. 00:55 X-ray completed. Portable x-ray completed in exam room. Patient tolerated procedure kw well. 00:58 XRAY Chest (1 view) In Process Unspecified. EDMS 01:35 Yesenia Ewing MD is Hospitalizing Provider. kiley Administered Medications: 01:13 Drug: NS 0.9% 500 ml Route: IV; Rate: bolus; Site: right wrist; jd3 01:13 Drug: NS 0.9% 1000 ml Route: IV; Rate: 125 ml/hr; Site: right wrist; jd3 02:40 Drug: Aspirin 162 mg Route: PO; jd3 06:21 Follow up: Response: No adverse reaction ak1 02:40 Drug: Pepcid 20 mg Route: IVP; Site: right antecubital; jd3 06:21 Follow up: Response: No adverse reaction ak1 Outcome: 01:37 Decision to Hospitalize by Provider. kiley 09:51 Patient left the ED. hb Signatures: Dispatcher [employer] Onur Bee MD MD cha Salyer, Edna es Whitley, Kimberlee kw Krenek, Amber RN RN ak1 Maile Cameron RN RN Sean Morales Jonathon, RN RN jd3 Corrections: (The following items were deleted from the chart) 01:16 01:13 NS 0.9% 500 ml IV at bolus in right antecubital jd3 jd3 04:15 04:12 BP 137 / 63; Pulse 101bpm; Resp 17bpm; Spontaneous; Pulse Ox 97% RA; jd3 jd3 04:15 03:30 BP 172 / 92; Pulse 92bpm; Resp 18bpm; Spontaneous; Pulse Ox 95% RA; jd3 jd3
--- NOTE | 2019-02-25 01:37 | EDPHYS ---
Physician Documentation [facility] Name: Rick Xavier Age: 73 yrs Sex: Male : 1945 Arrival Date: 02/25/2019 Time: 00:02 Bed 5 Private MD: Hamzah Dos Santos R ED Physician Onur Ramírez HPI: 02/25 00:43 This 73 yrs old Male presents to ER via Ambulatory with complaints of Chest kiley Pain, Abdominal Pain, Blood Pressure Problem, Breathing Difficulty. 00:43 The patient or guardian reports chest pain that is located primarily in the substernal kiley area, anterior chest wall. Onset: yesterday. The pain does not radiate. Historical: - Allergies: 00:43 procaine HCl; ak1 00:43 PENICILLINS; ak1 00:43 diphenhydramine HCl; ak1 00:43 novacaine; ak1 - Home Meds: 00:43 aspirin 81 mg Oral TbEC [Active]; Zantac 150 mg Oral tab [Active]; terazosin Oral ak1 [Active]; prednisone 5 mg oral tab [Active]; glimepiride 4 mg oral tab 1 tab twice daily [Active]; hydrocodone-acetaminophen 10-325 mg Oral tab [Active]; losartan Oral [Active]; Metoprolol Tartrate Oral [Active]; metformin 1,000 mg Oral tr24 [Active]; zyzol [Active]; Lexapro 20 mg Oral tab 1 tab once daily [Active]; trazodone Oral [Active]; atorvastatin oral oral [Active]; - PMHx: 00:43 Asthma; chronic back pain; COPD; Emphysema; Myocardial infarction; CVA; Diabetes - ak1 NIDDM; Depression; - PSHx: 00:43 Hernia repair; CABG; cataracts; neck sx; facial bone sx; ak1 - Immunization history:: Adult Immunizations unknown. - Social history:: Smoking status: unknown. - Ebola Screening: : No symptoms or risks identified at this time. ROS: 00:44 Constitutional: Negative for fever, chills, and weight loss, Eyes: Negative for injury, kiley pain, redness, and discharge, ENT: Negative for injury, pain, and discharge, Neck: Negative for injury, pain, and swelling, Respiratory: Negative for shortness of breath, cough, wheezing, and pleuritic chest pain, Back: Negative for injury and pain, : Negative for injury, bleeding, discharge, and swelling, MS/Extremity: Negative for injury and deformity, Skin: Negative for injury, rash, and discoloration, Neuro: Negative for headache, weakness, numbness, tingling, and seizure, Psych: Negative for depression, anxiety, suicide ideation, homicidal ideation, and hallucinations, Allergy/Immunology: Negative for hives, rash, and allergies, Endocrine: Negative for neck swelling, polydipsia, polyuria, polyphagia, and marked weight changes, Hematologic/Lymphatic: Negative for swollen nodes, abnormal bleeding, and unusual bruising. 00:44 Cardiovascular: Positive for chest pain. 00:44 Respiratory: Positive for cough. 00:44 Abdomen/GI: Positive for abdominal pain, of the anterior aspect of left lateral abdomen, posterior aspect of left lateral abdomen, left upper quadrant and left lower quadrant. Exam: 00:44 Constitutional: This is a well developed, well nourished patient who is awake, alert, kiley and in no acute distress. Head/Face: Normocephalic, atraumatic. Eyes: Pupils equal round and reactive to light, extra-ocular motions intact. Lids and lashes normal. Conjunctiva and sclera are non-icteric and not injected. Cornea within normal limits. Periorbital areas with no swelling, redness, or edema. ENT: Nares patent. No nasal discharge, no septal abnormalities noted. Tympanic membranes are normal and external auditory canals are clear. Oropharynx with no redness, swelling, or masses, exudates, or evidence of obstruction, uvula midline. Mucous membranes moist. Neck: Trachea midline, no thyromegaly or masses palpated, and no cervical lymphadenopathy. Supple, full range of motion without nuchal rigidity, or vertebral point tenderness. No Meningismus. Chest/axilla: Normal chest wall appearance and motion. Nontender with no deformity. No lesions are appreciated. Cardiovascular: Regular rate and rhythm with a normal S1 and S2. No gallops, murmurs, or rubs. Normal PMI, no JVD. No pulse deficits. Respiratory: Lungs have equal breath sounds bilaterally, clear to auscultation and percussion. No rales, rhonchi or wheezes noted. No increased work of breathing, no retractions or nasal flaring. Back: No spinal tenderness. No costovertebral tenderness. Full range of motion. Male : Normal genitalia with no discharge or lesions. Skin: Warm, dry with normal turgor. Normal color with no rashes, no lesions, and no evidence of cellulitis. MS/ Extremity: Pulses equal, no cyanosis. Neurovascular intact. Full, normal range of motion. Neuro: Awake and alert, GCS 15, oriented to person, place, time, and situation. Cranial nerves II-XII grossly intact. Motor strength 5/5 in all extremities. Sensory grossly intact. Cerebellar exam normal. Normal gait. Psych: Awake, alert, with orientation to person, place and time. Behavior, mood, and affect are within normal limits. 00:44 Abdomen/GI: Inspection: distension, Bowel sounds: normal, Palpation: moderate abdominal tenderness, in the anterior aspect of left lateral abdomen, posterior aspect of left lateral abdomen, left upper quadrant and left lower quadrant, Liver: no appreciated palpable abnormalities, Hernia: not appreciated. Vital Signs: 00:05 BP 134 / 68; Pulse 80; Resp 18; Temp 98.2(O); Pulse Ox 97% on R/A; Weight 95.71 kg (R); ak1 Height 5 ft. 9 in. (175.26 cm) (R); Pain 10/10; 00:35 BP 106 / 83; Pulse 79; Resp 18; Pulse Ox 96% on R/A; ak1 01:31 BP 141 / 81; Pulse 70; Resp 18; Pulse Ox 95% on R/A; ak1 02:30 BP 137 / 63; Pulse 101; Resp 17 S; Pulse Ox 97% on R/A; jd3 03:30 BP 138 / 78; Pulse 69; Resp 17 S; Pulse Ox 95% on R/A; jd3 04:15 BP 172 / 92; Pulse 92; Resp 18 S; Pulse Ox 95% on R/A; jd3 06:16 BP 173 / 83; Pulse 69; Resp 16; Temp 98.2; Pulse Ox 95% on R/A; ak1 07:15 BP 160 / 72; Pulse 65; Resp 1; Pulse Ox 100% on R/A; hb 08:00 BP 172 / 72; Pulse 68; Resp 14; Pulse Ox 100% on R/A; hb 09:00 BP 146 / 81; Pulse 73; Resp 15; Pulse Ox 98% on R/A; hb 00:05 Body Mass Index 31.16 (95.71 kg, 175.26 cm) ak1 MDM: 00:22 Patient medically screened. [facility] 00:45 Data reviewed: vital signs, nurses notes, lab test result(s), EKG, radiologic studies, [facility] CT scan, plain films. 02/25 00:42 Order name: Basic Metabolic Panel [facility] 02/25 00:42 Order name: CBC with Diff [facility] 02/25 00:42 Order name: LFT's [facility] 02/25 00:42 Order name: Magnesium [facility] 02/25 00:42 Order name: NT PRO-BNP [facility] 02/25 00:42 Order name: PT-INR; Complete Time: :32 [facility] 02/25 00:42 Order name: Troponin (emerg Dept Use Only); Complete Time: 01:32 [facility] 02/25 00:42 Order name: Lipase; Complete Time: 01:32 [facility] 02/25 00:42 Order name: Urine Culture [facility] 02/25 00:45 Order name: Basic Metabolic Panel; Complete Time: 01:32 [facility] 02/25 00:45 Order name: CBC with Automated Diff; Complete Time: :32 [facility] 02/25 00:45 Order name: Liver (Hepatic) Function; Complete Time: : [facility] 02/25 00:45 Order name: Magnesium; Complete Time: :32 [facility] 02/25 00:45 Order name: NT PRO-BNP; Complete Time: :32 [facility] 02/25 00:42 Order name: XRAY Chest (1 view) [facility] 02/25 00:42 Order name: EKG; Complete Time: 00:46 [facility] 02/25 00:42 Order name: Cardiac monitoring; Complete Time: 00:47 [facility] 02/25 00:42 Order name: EKG - Nurse/Tech; Complete Time: 00:47 [facility] 02/25 00:42 Order name: IV Saline Lock; Complete Time: 00:45 [facility] 02/25 00:42 Order name: Labs collected and sent; Complete Time: 00:47 [facility] 02/25 00:42 Order name: O2 Per Protocol; Complete Time: 00:47 [facility] 02/25 00:42 Order name: O2 Sat Monitoring; Complete Time: 00:47 [facility] 02/25 00:42 Order name: Urine Dipstick-Ancillary (obtain specimen); Complete Time: 00:59 [facility] 02/25 00:42 Order name: CT Abd/Pelvis - PO and IV Contrast [facility] 02/25 06:26 Order name: Diet Heart Healthy; Complete Time: 06:28 ak1 Administered Medications: 01:13 Drug: NS 0.9% 500 ml Route: IV; Rate: bolus; Site: right wrist; jd3 01:13 Drug: NS 0.9% 1000 ml Route: IV; Rate: 125 ml/hr; Site: right wrist; jd3 02:40 Drug: Aspirin 162 mg Route: PO; jd3 06:21 Follow up: Response: No adverse reaction ak1 02:40 Drug: Pepcid 20 mg Route: IVP; Site: right antecubital; jd3 06:21 Follow up: Response: No adverse reaction ak1 Disposition: 02/25/19 01:37 Hospitalization ordered by Yesenia Ewing for Inpatient Admission. Preliminary diagnosis are Chest pain, unspecified, Chronic obstructive pulmonary disease, unspecified, Type 2 diabetes mellitus, Hypotension, Abdominal tenderness. - Bed requested for Telemetry/MedSurg (Inpatient). - Status is Inpatient Admission. hb - Condition is Fair. - Problem is new. - Symptoms have improved. UTI on Admission? No Signatures: Dispatcher [employer] EDMS Liana Devine Corey, MD MD cha Krenek, Amber, RN RN ak1 Maile Cameron, RN RN Rom Garcia RN RN jd3 Corrections: (The following items were deleted from the chart) 08:03 01:37 Hospitalization Ordered by Yesenia Ewing MD for Inpatient Admission. Preliminary bd diagnosis is Chest pain, unspecified; Chronic obstructive pulmonary disease, unspecified; Type 2 diabetes mellitus; Hypotension; Abdominal tenderness. Bed requested for Telemetry/MedSurg (Inpatient). Status is Inpatient Admission. Condition is Fair. Problem is new. Symptoms have improved. UTI on Admission? No. [facility] 08:44 08:03 02/25/2019 01:37 Hospitalization Ordered by Yesenia Ewing MD for Inpatient bd Admission. Preliminary diagnosis is Chest pain, unspecified; Chronic obstructive pulmonary disease, unspecified; Type 2 diabetes mellitus; Hypotension; Abdominal tenderness. Bed requested for [facility] ER HOLD. Status is Inpatient Admission. Condition is Fair. Problem is new. Symptoms have improved. UTI on Admission? No. bd 09:51 08:44 02/25/2019 01:37 Hospitalization Ordered by Yesenia Ewing MD for Inpatient hb Admission. Preliminary diagnosis is Chest pain, unspecified; Chronic obstructive pulmonary disease, unspecified; Type 2 diabetes mellitus; Hypotension; Abdominal tenderness. Bed requested for Telemetry/MedSurg (Inpatient). Status is Inpatient Admission. Condition is Fair. Problem is new. Symptoms have improved. UTI on Admission? No. bd
[2019-02-25] MEDS ORDERED: FAMOTIDINE 20 MG/2 ML VIAL IV ONE (01:57)
[2019-02-25] MEDS ORDERED: ASPIRIN 81 MG CHEWABLE TABLET ONE (01:57)
--- NOTE | 2019-02-25 03:42 | P.HP ---
Certification for Inpatient Patient admitted to: Observation With expected LOS: <2 Midnights Practitioner: I am a practitioner with admitting privileges, knowledge of patient current condition, hospital course, and medical plan of care. Services: Services provided to patient in accordance with Admission requirements found in Title 42 Section 412.3 of the Code of Federal Regulations Patient History Date of Service: 02/25/19 Reason for admission: chest pain History of Present Illness: Mr Xavier is a 73 years old male with history of CAD s/p CABG, HTN, DM, who start about 2 weeks ago with progressive weakness and dizziness episodes. Today , he also had a chest pain, substernal, pressure like, lasting for 25 minutes, 8 /10 of intensity, associated with diaphoresis, no nausea or vomiting, no SOB. He was also monitoring his BP at home, and today it was significantly lower 70/ 40 according to him. At arrival, the lowest BP was 106/83. EKG shows SR at [address]-T abnormalities. Trop I negative. Allergies procaine HCl [From Novocain] Allergy (Severe, Verified 07/19/18 07:58) Anaphylaxis diphenhydramine HCl [From Benadryl] Allergy (Intermediate, Verified 07/19/18 07: 58) Hives/Rash Home Medications: Albuterol Inhaler [Ventolin Inhaler*] 1 puff IH DAILY PRN 04/29/18 Aspirin [Aspirin EC 81 MG] 81 mg PO DAILY 04/29/18 Atorvastatin Calcium [Lipitor*] 20 mg PO BEDTIME 04/29/18 Cetirizine HCl [Zyrtec*] 10 mg PO DAILY 04/29/18 Glimepiride 8 mg PO DAILY 04/29/18 Hydrocodone Bit/Acetaminophen [Hydrocodon-Acetaminophn 10-325] 1 tab PO Q4HP PRN 04/29/18 Metformin ER [Glucophage ER*] 1,000 mg PO BEDTIME 04/29/18 Metoprolol Tartrate [Lopressor] 100 mg PO DAILY 04/29/18 Ranitidine [Zantac*] 150 mg PO DAILY 04/29/18 Trazodone [Desyrel*] 100 mg PO BEDTIME 04/29/18 Umeclidinium Brm/Vilanterol Tr [Anoro Ellipta 62.5-25 Mcg INH] 1 puff IH DAILY 04/29/18 predniSONE [Prednisone*] 10 mg PO DAILY 04/29/18 Losartan Potassium [Cozaar*] 50 mg PO DAILY 05/19/18 Terazosin HCl [Hytrin*] 5 mg PO BEDTIME 05/19/18 Clindamycin HCl [Cleocin HCl] 300 mg PO TID #21 capsule 05/26/18 - Past Medical/Surgical History Diabetic: Yes -: htn -: strokes x8 -: cardiac arrest x5 -: hernia -: Asthma -: COPD -: Emphysema -: Diabetes -: triple bypass -: hernia repair x2 -: eye lense replacements -: neck surgery -: Cataract surgery - Family History Father -: Heart disease, Hypertension, Stroke Mother -: Diabetes - Social History Smoking Status: Former smoker Alcohol use: No CD- Drugs: No Caffeine use: No Place of Residence: Home Review of Systems 10-point ROS is otherwise unremarkable Physical Examination - Physical Exam General: Alert, In no apparent distress HEENT: Atraumatic, PERRLA, Mucous membr. moist/pink, EOMI, Sclerae nonicteric Neck: Supple, 2+ carotid pulse no bruit, No LAD, Without JVD or thyroid abnormality Respiratory: Clear to auscultation bilaterally, Diminished Cardiovascular: Regular rate/rhythm, Normal S1 S2 Gastrointestinal: Normal bowel sounds, No tenderness Musculoskeletal: No tenderness Integumentary: No rashes Neurological: Normal speech, Normal strength at 5/5 x4 extr, Normal tone, Normal affect Lymphatics: No axilla or inguinal lymphadenopathy - Studies Laboratory Data (last 24 hrs) 02/25/19 00:41: PT 12.2, INR 1.04 02/25/19 00:41: WBC 8.5, Hgb 11.5 L, Hct 36.6 L, Plt Count 184 02/25/19 00:41: Sodium 139, Potassium 4.4, BUN 14, Creatinine 1.00, Glucose 155 H, Magnesium 2.2, Total Bilirubin 0.4, AST 15, ALT 22, Alkaline Phosphatase 103 , Lipase 138 Assessment and Plan - Problems (Diagnosis) (1) Chest pain Current Visit: Yes Status: Acute Qualifiers: Chest pain type: unspecified Qualified Code(s): R07.9 - Chest pain, unspecified (2) Diabetes mellitus Current Visit: Yes Status: Acute Qualifiers: Diabetes mellitus type: type 2 Diabetes mellitus care home insulin use: without care home use Diabetes mellitus complication status: with other specified complication Qualified Code(s): E11.69 - Type 2 diabetes mellitus with other specified complication (3) COPD (chronic obstructive pulmonary disease) Onset Date: 05/01/18 Current Visit: No Status: Acute Qualifiers: COPD type: unspecified COPD Qualified Code(s): J44.9 - Chronic obstructive pulmonary disease, unspecified - Plan The patient will be admitted to the hospital due to chest pain, initial trop I and EKG unremarkable. Will order serial cardiac enzymes and EKG. consult Cardiology team. There is a pending CT abd/pelvis ordered in ER. - Advance Directives Does patient have a Living Will: No Does patient have a Durable POA for Healthcare: No - Code Status/Comfort Care Code Status Assessed: Yes Code Status: Full Code
--- NOTE | 2019-02-25 09:03 | RAD REPORT ---
EXAM DESCRIPTION: Tia Single View02/25/2019 12:58 am CLINICAL HISTORY: Chest pain COMPARISON: April 2018 FINDINGS: The lungs appear clear of acute infiltrate. The heart is upper limits normal size. Postsurgical changes involve the chest. IMPRESSION: No acute abnormalities displayed
--- NOTE | 2019-02-25 10:30 | EKG ---
Test Date: 2019-02-25 Test Time: 00:13:40 Security Representative: KAITY MEASUREMENT RESULTS: Intervals: Rate: 80 CA: 186 QRSD: 78 QT: 396 QTc: 456 Lincoln: P: 31 CA: 186 QRS: 43 T: 65 INTERPRETIVE STATEMENTS: Normal sinus rhythm Normal ECG Compared to ECG 04/29/2018 08:46:09 Sinus tachycardia no longer present Atrial premature complex(es) no longer present Electronically Signed On 02-25-19 10:30:03 CDT by Garry Pisano
[2019-02-25] MEDS ORDERED: NITROGLYCERIN 0.4 MG/TAB SL PRN (10:42)
[2019-02-25] MEDS: INSULIN -REGULAR HUMAN 50 UNIT/0.5 ML ML SQ SCH ×4 (10:42→21:00)
[2019-02-25] MEDS ORDERED: D50W 25 GM/50 ML SYRINGE IV PRN (10:59)
[2019-02-25] MEDS ORDERED: GLUCAGON 1 MG/VIAL IM PRN (10:59)
[2019-02-25] MEDS: HYDRALAZINE HCL 20 MG/ML VIAL IV PRN ×2 (12:48→19:19)
[2019-02-25] MEDS: ASPIRIN 325 MG TAB PO SCH (12:48)
[2019-02-25 13:40] VITALS: BMI 31.1
[2019-02-25] MEDS: ENOXAPARIN 40 MG/0.4 ML SQ SCH (17:34)
--- NOTE | 2019-02-25 19:17 | PN ---
Date of Progress Note: 02/25/2019 Subjective: The patient seen and examined, chart reviewed and case discussed with RN. The patient denies any current chest pain. States his blood pressure has been labile for the past 3 weeks with multiple low readings and multiple high readings in the same day. The patient did report some dizziness. Medications: List reviewed. Physical Examination: Vital Signs: Temperature 97.6, heart rate 80, blood pressure 180/78, respirations 18, O2 96% on room air. General: Awake, alert, oriented x3. Elderly male, obese, not in any acute distress. CV: S1, S2. Regular rate and rhythm. Peripheral pulses present. Respiratory: Moving air well bilaterally. No wheezing or stridor. Gastrointestinal: Abdomen is soft, nontender, nondistended. Skin: Mild tenderness to palpation in the left upper quadrant. No rebound or guarding. Positive bowel sounds. Extremities: No clubbing, cyanosis, or edema. Neurologic: Nonfocal. Laboratory Data: Sodium 139, potassium 4.4, chloride 103, CO2 27, BUN 14, creatinine 1, glucose 155, calcium 8.5, magnesium 2.2. Troponin 0.02, 0.03. WBC 8.5, H and H 11.5 and 36.6, platelets 184. Assessment And Plan: A 73-year-old male with: 1. Chest pain. The patient has history of coronary artery disease status post coronary artery bypass graft. Initial cardiac enzymes have been negative. We will continue to monitor. Continue chest pain guidelines. Cardiology has been consulted. 2. Dizziness, improved. 3. Labile blood pressure. The patient does have essential hypertension. However, blood pressure has been ranging in the low side with systolic in the 100s to the high side with systolic in the 190s. We will adjust medications as necessary. Add p.r.n. hydralazine. 4. Chronic obstructive pulmonary disease, chronic bronchitis. The patient was getting short of breath while talking during the history taking. The patient is not on supplemental oxygen at home. We will resume nebulizer treatments as needed. 5. Diabetes mellitus type 2 without long-term use of insulin with hyperglycemia. We will continue sliding scale insulin and monitor blood glucose levels. 6. Obesity, BMI 31. 7. History of stroke. No residual weakness. 8. Deep vein thrombosis prophylaxis with Lovenox. 9. Incidental finding of 5 mm nephrolithiasis, nonobstructing. 10. Diverticulosis without acute diverticulitis. 11. Abdominal aortic aneurysm 3.4 cm. The patient informed he needs to have repeat ultrasound in 6-12 months to monitor expansion. He understands that greater than 5-6 cm, the patient will require surgery. He is encouraged to quit smoking completely. Does smoke marijuana. /CRISS Voice ID: [id number] Report ID: [id number] SUN
[2019-02-25] MEDS ORDERED: ATORVASTATIN 20 MG TAB PO SCH (21:00)
[2019-02-26 04:18] LABS: Absolute Lymphocytes (CBC) 1.5 K/uL (0.7-4.9); Basophils % 0.4 % (0-1.3); Eosinophils % 7.4 % (0-4.4); Hematocrit 35.5 % (39.6-49.0); Lymphocytes % 26.7 % (15.3-44.8); MPV 8.4 fL (7.6-11.3); RBC Red Blood Cell Count 4.68 M/uL (4.33-5.43)
[2019-02-26 04:29] LABS: BUN Blood Urea Nitrogen 10 mg/dL (7-18); Bicarbonate 28 mmol/L (21-32); Glucose Level 128 mg/dL (74-106); Potassium 3.9 mmol/L (3.5-5.1); Sodium Level 144 mmol/L (136-145)
[2019-02-26] MEDS: INSULIN -REGULAR HUMAN 50 UNIT/0.5 ML ML SQ SCH ×4 (07:30→21:00)
[2019-02-26] MEDS ORDERED: REGADENOSON 0.4 MG/5 ML SYR IV ONE (08:26)
[2019-02-26] MEDS: ASPIRIN 325 MG TAB PO SCH (08:48)
[2019-02-26] MEDS ORDERED: ALBUTEROL IN PRN (10:24)
--- NOTE | 2019-02-26 11:34 | RAD REPORT ---
EXAM DESCRIPTION: CT - Abdomen Pelvis W Contrast - 02/25/2019 6:11 am CLINICAL HISTORY: Abdominal pain COMPARISON: CT abdomen and pelvis with contrast 07/27/2017. TECHNIQUE: Axial [address] imaging of the abdomen and pelvis performed utilizing intravenous contrast. Reformatted coronal and sagittal images reviewed. A dose reduction technique was utilized with automated exposure control according to patient size. FINDINGS: LOWER THORAX: Right middle lobe and lower lobe subpleural atelectasis. Heart is normal in size. No pericardial fluid. ABDOMEN: LIVER/GALLBLADDER: Enlarged liver, 19.7 cm. No mass or biliary dilatation. Calcification medial left lobe consistent with granuloma. Unremarkable gallbladder. SPLEEN/PANCREAS: Normal spleen size. Splenic granulomas. Normal pancreas. KIDNEYS/ADRENAL GLANDS: Normal adrenal glands. Unremarkable right kidney. Superior left renal pelvic nonobstructing 5 mm stone. Mild bilateral perinephric edema. RETROPERITONEAL VESSELS/NODES: Mid abdominal aortic aneurysm to 3.4 cm. Calcified and noncalcified p laque with multiple plaque ulcerations. BOWEL: Normal stomach. Small bowel loops are normal in caliber. Normal appendix in the right lower q uadrant. Sigmoid colon diverticulosis. No diverticulitis. MESENTERY/PERITONEUM: No adenopathy. No ascites. No free air. PELVIS: BLADDER: Normal bladder. No wall thickening. GENITAL ORGANS: Prostatic calcifications. PERITONEUM: No pelvic free fluid or adenopathy. BONES AND SOFT TISSUES: Moderate lower thoracic and lumbar spondylosis. No subluxation. Intact bony pelvis. Normal hips. IMPRESSION: 1. Hepatomegaly. Hepatic and splenic granulomas. 2. Nonobstructing 5 mm left renal pelvic stone. 3. Mild sigmoid colonic diverticulosis. No diverticulitis. 4. Mid abdominal aorta 3.4 cm aneurysm with calcified and noncalcified plaque. Multiple plaque ulcera tions. No evidence of aneurysm rupture. 3.4 cm abdominal aortic aneurysm. Recommend follow-up every 3 years. Reference: J Am Gabino Radiol 2013;10:789-794. Electronically signed by: Andree Melgoza DO 02/25/2019 5:06 AM CDT Due to temporary technical issues with the PACS/Fluency reporting system, reports are being signed by the in house radiologist as a courtesy to ensure prompt reporting. The interpreting radiologist is f ully responsible for the content of the report.
--- NOTE | 2019-02-26 12:10 | CON ---
History Of Present Illness: Mr. Xavier is 73, came to the hospital because his blood pressure was hard to control, it would be 100/50 and an hour later 180/90. To me he did not describe any chest pa in. When asked about it, he says he occasionally gets chest pain, but he did not come to the hospita l for that reason, was not having any significant amount. Serial troponins have been drawn 3 in a ro w were 0.03 and then 1 was 0.08. The patient has a history of heart disease with bypass surgery in , it was done at our hospital here, Dr. Craft was here then. Since then, he has been treated for h ypertension, dyslipidemia by Dr. Beal and Dr. Allen. He has good control of his risk facto rs, except recently his blood pressures been out of control. He also has underlying diabetes. Outpatient Medications: Trazodone, terazosin, metformin, glimepiride, prednisone, Xyzal, aspirin, ra nitidine, losartan, glimepiride, clidinium or Anoro Ellipta, hydrocodone with acetaminophen, and albu terol. Social History: He has a history of smoking, but quit smoking in 2007 right before his bypass surger y. Alcohol use minimal. Allergies: HE REPORTS DRUG ALLERGY TO PROCAINE, DIPHENHYDRAMINE. Physical Examination: Vital Signs: 5 feet 9, 211 pounds. General: Alert, oriented, pleasant, cooperative, not in distress. Blood pressure 171/94, pulse 85, temperature 98.0, O2 saturation 94% on room air. No pain. HEENT: Unremarkable. Lungs: Scattered wheezes, more prominent in the inferior parts of the lung. Heart: Within normal limits. No carotid bruit. Distal pulses are within normal limits. No ulcers or coolness of the extremities. Diagnostic Data: Electrocardiogram is normal. His chest x-ray does not reveal pneumonia or any acut e abnormalities. Postop changes of a thoracotomy with sternal wires are present. Impression: My impression is that Mr. Xavier is not having an acute coronary syndrome. I think we were obliged to evaluate his coronary arteries with a troponin of 0.08. I am not sure there was per fect indication for ordering a troponin, but nonetheless it is in the doherty zone that excess wonder ab out things, so we will do a pharmacologic nuclear stress test. We will make any further decisions ba sed on that, as far as his blood pressure being labile. I think terazosin is probably a big part of it. Terazosin has a fairly short half-life and the best thing would be if he took that at bedtime. I am not sure he does that on the other medications, but I see it might be altered or if instead of l osartan he would be on a different angiotensin receptor zelalem, losartan has so little activity that I am not sure it is contributing it all to control his blood pressure. ALIZA/CRISS Voice ID: [id number] Report ID: [id number]
[2019-02-26] MEDS: ACETAMINOPHEN PO SCH ×3 (15:00→21:28)
[2019-02-26] MEDS: HYDROCODONE PO SCH ×3 (15:00→21:28)
--- NOTE | 2019-02-26 15:38 | RAD REPORT ---
EXAM DESCRIPTION: NM - Rest Stress Cardiac Imaging - 02/26/2019 2:59 pm CLINICAL HISTORY: CP Chest pain. COMPARISON: <Comparisons> TECHNIQUE: The patient was administered approximately 10mCi of Tc 99m Sestamibi prior to resting SPE CT imaging of the heart. The patient was then administered approximately 30 mCi of Tc 99m Sestamibi f ollowing exercise or pharmacologic stress. Multiplanar SPECT images were reviewed. FINDINGS: No stress induced ischemic defect is seen to suggest stress induced ischemia. No fixed def ect is seen to suggest hibernating myocardium or scarred myocardium. The end diastolic volume is 85 ml, the end systolic volume is 37 ml, and the ejection fraction is 56 %. IMPRESSION: No stress induced ischemia.
--- NOTE | 2019-02-26 16:29 | PN ---
Date of Progress Note: 02/26/2019 Subjective: The patient seen and examined. Chart reviewed and case discussed with RN. The patient states he had an uneventful night. No acute events. Chest pain has improved. Medications: List reviewed. Physical Examination: Vital Signs: Temperature 97.5, heart rate 87, blood pressure 165/80, respirations 16, O2 99% on room air. General: Awake, alert, oriented x3. Elderly male, obese. CV: S1, S2. Regular rate and rhythm. Respiratory: Moving air well bilaterally. No wheezing. Gastrointestinal: Abdomen is soft, nontender, nondistended. Positive bowel sounds. Extremities: No clubbing, cyanosis, or edema. Neurologic: Nonfocal. Laboratory Data: Sodium 144, potassium 3.9, chloride 108, CO2 28, BUN 10, creatinine 0.83, glucose 1 28, calcium 8.3. Troponin 0.09. WBC 5.7, H and H 11.4, and 35.5, platelets 177, neutrophils 56%. Assessment And Plan: A 73-year-old male with: 1.Chest pain. The patient did have elevated troponin 0.09, going for a cardiac stress test today. The patient has history of coronary artery disease and coronary artery bypass graft. Continue chest pain guidelines. Appreciate Dr. Pisano' input. 2.Dizziness, improved. 3.Labile blood pressure. Blood pressure has been on the high side. We will continue his home medic ations. 4.Essential hypertension, uncontrolled. Resume home medications. 5.Chronic obstructive pulmonary disease, chronic bronchitis. We will resume inhalers. Supplemental oxygen as needed. 6.Diabetes mellitus type 2 without long-term use of insulin with hyperglycemia. Continue sliding sc jack insulin. Monitor blood glucose levels. 7.Obesity, BMI 31. 8.History of cerebrovascular accident. No residual weakness. 9.Deep venous thrombosis prophylaxis with Lovenox. 10.Diverticulosis without acute diverticulitis. 11.Nonobstructing 5 mm nephrolithiasis. We will continue to monitor. 12.Abdominal aortic aneurysm 3.4 cm. Repeat ultrasound in 6-12 months. I will transfer care of the patient back to Dr. Dos Santos. /MODL Voice ID: [id number] Report ID: [id number]
[2019-02-26] MEDS: GLIMEPIRIDE 4 MG PO SCH (16:40)
[2019-02-26] MEDS: ENOXAPARIN 40 MG/0.4 ML SQ SCH (16:41)
--- NOTE | 2019-02-26 16:41 | TREADPHA ---
DX: CHEST PAIN Date of Study: 02/26/19 Ht: 5 9 Wt: 211 lb 0 oz Consulting Physician: WILLA MEDICATIONS: ASPIRIN, LIPITOR, DEXTROSE, LOVENOX, NOVOLIN R, NITROSTAT, GLUCAGEN. HISTORY: 73 YEAR MALE WITH COMPLAINTS OF CHEST PAIN. HISTORY: HYPERTENSION, STROKE, CARDIAC ARREST, HERNIA, ASTHMA, COPD, EMPHYSEMA, DIABETES, CABG, MARIJUANA DAILY, NON-DRINKER. PHYSICIAL EXAMINATION: RESTING B.P.: 174/88 RESTING H.R.: 82 RESTING EKG: NORMAL PROTOCOL: LEXISCAN EXERCISE TIME: 3:30 B.P. AT PEAK STRESS: 161/78 IMPRESSION: LEXISCAN INJECTED, FOLLOWED BY CARDIOLITE PER PROTOCOL, SEE NUCLEAR MEDICINE REPORT. NO SUPRAVENTRICULAR TACHYCARDIA, NO VENTRICULAR TACHYCARDIA, OCCASIONAL PREMATURE ATRIAL COMPLEXS, PREMATURE VENTRICULAR COMPLEXS. PATIENT REPORTED NO CHEST PAIN. NON-DIAGNOSTIC ELECTROCARDIOGRAM WITH LEXISCAN STRESS.
[2019-02-26] MEDS: LOSARTAN POTASSIUM 50 MG PO SCH (16:43)
[2019-02-26] MEDS ORDERED: METFORMIN HCL PO SCH (21:00)
[2019-02-26] MEDS ORDERED: TERAZOSIN HCL 5 MG PO SCH (21:00)
[2019-02-26] MEDS ORDERED: GLIMEPIRIDE PO SCH (21:00)
[2019-02-26] MEDS ORDERED: ATORVASTATIN 20 MG PO SCH (21:00)
[2019-02-26] MEDS ORDERED: TRAZODONE HCL 100 MG PO SCH (21:00)
[2019-02-27 00:07] VITALS: O2SAT 95
[2019-02-27] MEDS: HYDROCODONE PO SCH ×3 (01:00→09:00)
[2019-02-27] MEDS: ACETAMINOPHEN PO SCH ×3 (01:00→09:00)
[2019-02-27] MEDS: INSULIN -REGULAR HUMAN 50 UNIT/0.5 ML ML SQ SCH (07:30)
[2019-02-27 08:46] VITALS: BP 149/83; TEMP 97.7
[2019-02-27] MEDS ORDERED: RANITIDINE HCL 150 MG PO SCH (09:00)
[2019-02-27] MEDS ORDERED: METOPROLOL XL 100 MG TAB PO SCH (09:00)
[2019-02-27] MEDS ORDERED: ESCITALOPRAM 20 MG TAB PO SCH (09:00)
[2019-02-27] MEDS ORDERED: ASPIRIN EC 81 MG TABLETS PO SCH (09:00)
[2019-02-27] MEDS ORDERED: LEVOCETIRIZINE DIHYDROCHLORIDE 5 MG PO SCH (09:00)
[2019-02-27] MEDS: GLIMEPIRIDE 4 MG PO SCH (09:04)
[2019-02-27] MEDS: LOSARTAN POTASSIUM 50 MG PO SCH (09:05)
--- NOTE | 2019-02-27 12:19 | PN ---
Date of Progress Note: 02/27/2019 Dr. Beal admitted the patient 02/25/2019. Dr. Pisano saw him on 02/26/2019 for chest pain. He ordered an echocardiogram and Lexiscan. His echocardiogram was reviewed that was normal. His Crow iscan was reviewed, that was normal. No further chest pain. No telemetry changes. The patient can go home whenever it is okay with Dr. Beal and I will see him in the office as an outpatient. ANATOLY/CRISS Voice ID: [id number] Report ID: [id number]
== END 2019-02-27 11:29 | disposition home or self-care (01) ==
LOC: ER 23:59 → ERHOLD 02-25 03:34 → 2ND 02-25 09:40
PROVIDERS: ADMIT Internal Medicine; ATTEND Internal Medicine
DX: R07.9 Chest pain, unspecified (principal); R42 Dizziness and giddiness; I25.10 Atherosclerotic heart disease of native coronary artery without angina pectoris; R09.89 Other specified symptoms and signs involving the circulatory and respiratory systems; J44.9 Chronic obstructive pulmonary disease, unspecified; E11.65 Type 2 diabetes mellitus with hyperglycemia; E66.9 Obesity, unspecified; Z68.31 Body mass index [BMI] 31.0-31.9, adult; Z95.1 Presence of aortocoronary bypass graft; N20.0 Calculus of kidney; K57.90 Diverticulosis of intestine, part unspecified, without perforation or abscess without bleeding; I71.4 Abdominal aortic aneurysm, without rupture; I10 Essential (primary) hypertension; Z86.73 Personal history of transient ischemic attack (TIA), and cerebral infarction without residual deficits
CPT/HCPCS: 93005; 93017; 87088; 85025 ×2; 87086; 80048 ×2; 36415 ×2; 83735; 85610; 82962 ×8; 80076; 84484 ×4; 83690; 83880; 74177; 71045; 97161; 78452; 96374; 99285; Q9967; J0360 ×2; J1650 ×2; J2785; J7030; A9500; G0378 ×2

== ENCOUNTER 2019-07-24 20:25 | Observation (INO) | payer OTHER ==
[2019-07-24 21:00] LABS: Absolute Lymphocytes (CBC) 1.6 K/uL (0.7-4.9); Basophils % 0.4 % (0-1.3); Hematocrit 38.3 % (39.6-49.0); Lymphocytes % 21.9 % (15.3-44.8); MPV 8.2 fL (7.6-11.3); RBC Red Blood Cell Count 4.87 M/uL (4.33-5.43)
[2019-07-24 21:09] LABS: Protime INR 1.03
[2019-07-24 21:24] LABS: ALT/SGPT 25 U/L (12-78); AST/SGOT 20 U/L (15-37); Albumin 3.7 g/dL (3.4-5.0); Alkaline Phosphatase 87 U/L (45-117); BUN Blood Urea Nitrogen 14 mg/dL (7-18); Bicarbonate 29 mmol/L (21-32); Bilirubin Direct < 0.1 mg/dL (0-0.2); Bilirubin Total 0.3 mg/dL (0.2-1.0); Glucose Level 124 mg/dL (74-106); Magnesium 1.9 mg/dL (1.8-2.4); NT PRO-BNP 258 pg/mL (<125); Potassium 4.7 mmol/L (3.5-5.1); Protein, Total 7.2 g/dL (6.4-8.2); Sodium Level 136 mmol/L (136-145); Troponin (Emerg Dept Use Only) 0.02 ng/mL (0.0-0.045)
--- NOTE | 2019-07-24 21:51 | EDPHYS ---
Physician Documentation [facility] Name: Rick Xavier Age: 74 yrs Sex: Male : 1945 Arrival Date: 07/24/2019 Time: 20:28 Bed 17 Private MD: ED Physician Onur Ramírez HPI: 07/24 21:41 This 74 yrs old Male presents to ER via Ambulatory with complaints of Chest kiley Pain, High Blood Pressure. 21:41 The patient or guardian reports chest pain that is located primarily in the substernal kiley area, epigastric area. Onset: 2 day(s) ago. The pain does not radiate. Associated signs and symptoms: Pertinent positives: cough, shortness of breath. The chest pain is described as a heaviness, a pressure, squeezing. Duration: The patient or guardian reports multiple episodes, that are intermittent. Modifying factors: The symptoms are alleviated by nothing. the symptoms are aggravated by nothing. Severity of pain: At its worst the pain was mild moderate in the emergency department the pain has resolved and did so just prior to arrival. The patient has experienced similar episodes in the past, multiple times. Historical: - Allergies: 20:36 diphenhydramine HCl; rv 20:36 NOVACAINE; rv 20:36 PENICILLINS; rv 20:36 procaine HCl; rv - Home Meds: 20:36 aspirin 81 mg Oral TbEC [Active]; atorvastatin Oral [Active]; glimepiride 4 mg Oral tab rv 1 tab twice daily [Active]; hydrocodone-acetaminophen 10-325 mg Oral tab [Active]; Lexapro 20 mg Oral tab 1 tab once daily [Active]; losartan Oral [Active]; metformin 1,000 mg Oral tr24 [Active]; Metoprolol Tartrate Oral [Active]; prednisone 5 mg Oral tab [Active]; terazosin Oral [Active]; Trazodone Oral [Active]; Zantac 150 mg Oral tab [Active]; zyzol [Active]; - PMHx: 20:36 Asthma; chronic back pain; COPD; CVA; Depression; Diabetes - NIDDM; Emphysema; rv Myocardial infarction; - PSHx: 20:36 CABG; rv - Immunization history:: Adult Immunizations up to date. - Social history:: Smoking status: Patient/guardian denies using tobacco. - Ebola Screening: : No symptoms or risks identified at this time. - Family history:: not pertinent. ROS: 21:41 Constitutional: Negative for fever, chills, and weight loss, Eyes: Negative for injury, kiley pain, redness, and discharge, ENT: Negative for injury, pain, and discharge, Neck: Negative for injury, pain, and swelling, Cardiovascular: Negative for chest pain, palpitations, and edema, Respiratory: Negative for shortness of breath, cough, wheezing, and pleuritic chest pain, Abdomen/GI: Negative for abdominal pain, nausea, vomiting, diarrhea, and constipation, Back: Negative for injury and pain, : Negative for injury, bleeding, discharge, and swelling, MS/Extremity: Negative for injury and deformity, Skin: Negative for injury, rash, and discoloration, Neuro: Negative for headache, weakness, numbness, tingling, and seizure, Psych: Negative for depression, anxiety, suicide ideation, homicidal ideation, and hallucinations, Allergy/Immunology: Negative for hives, rash, and allergies, Endocrine: Negative for neck swelling, polydipsia, polyuria, polyphagia, and marked weight changes, Hematologic/Lymphatic: Negative for swollen nodes, abnormal bleeding, and unusual bruising. Exam: 21:42 Constitutional: This is a well developed, well nourished patient who is awake, alert, kiley and in no acute distress. Head/Face: Normocephalic, atraumatic. Eyes: Pupils equal round and reactive to light, extra-ocular motions intact. Lids and lashes normal. Conjunctiva and sclera are non-icteric and not injected. Cornea within normal limits. Periorbital areas with no swelling, redness, or edema. ENT: Nares patent. No nasal discharge, no septal abnormalities noted. Tympanic membranes are normal and external auditory canals are clear. Oropharynx with no redness, swelling, or masses, exudates, or evidence of obstruction, uvula midline. Mucous membranes moist. Neck: Trachea midline, no thyromegaly or masses palpated, and no cervical lymphadenopathy. Supple, full range of motion without nuchal rigidity, or vertebral point tenderness. No Meningismus. Chest/axilla: Normal chest wall appearance and motion. Nontender with no deformity. No lesions are appreciated. Cardiovascular: Regular rate and rhythm with a normal S1 and S2. No gallops, murmurs, or rubs. Normal PMI, no JVD. No pulse deficits. Respiratory: Lungs have equal breath sounds bilaterally, clear to auscultation and percussion. No rales, rhonchi or wheezes noted. No increased work of breathing, no retractions or nasal flaring. Abdomen/GI: Soft, non-tender, with normal bowel sounds. No distension or tympany. No guarding or rebound. No evidence of tenderness throughout. Back: No spinal tenderness. No costovertebral tenderness. Full range of motion. Male : Normal genitalia with no discharge or lesions. Skin: Warm, dry with normal turgor. Normal color with no rashes, no lesions, and no evidence of cellulitis. MS/ Extremity: Pulses equal, no cyanosis. Neurovascular intact. Full, normal range of motion. Neuro: Awake and alert, GCS 15, oriented to person, place, time, and situation. Cranial nerves II-XII grossly intact. Motor strength 5/5 in all extremities. Sensory grossly intact. Cerebellar exam normal. Normal gait. Psych: Awake, alert, with orientation to person, place and time. Behavior, mood, and affect are within normal limits. 21:42 Musculoskeletal/extremity: DVT Exam: No signs of deep vein thrombosis. no pain, no kiley swelling, no tenderness, negative Homans' sign noted on exam, no appreciated bluish discoloration, no erythema, no increased warmth. Vital Signs: 20:33 BP 199 / 92; Pulse 62; Resp 16; Temp 98.2; Pulse Ox 100% ; Weight 98.88 kg; Height 5 rv ft. 10 in. (177.80 cm); Pain 7/10; 21:30 BP 167 / 84; Pulse 62; Resp 18; Pulse Ox 96% on R/A; ea 22:30 BP 186 / 98; Pulse 64; Resp 18; Pulse Ox 98% on R/A; ea 07/25 00:00 BP 177 / 95; Pulse 70; Resp 18; Temp 98; Pulse Ox 98% ; ea 07/24 20:33 Body Mass Index 31.28 (98.88 kg, 177.80 cm) rv [facility]: 07/24 20:36 Patient medically screened. [facility] 21:42 Data reviewed: vital signs, nurses notes, lab test result(s), EKG, radiologic studies. [facility] 07/24 20:43 Order name: Basic Metabolic Panel; Complete Time: 21:40 07/24 20:43 Order name: CBC with Diff; Complete Time: 21:40 07/24 20:43 Order name: LFT's; Complete Time: 21:40 07/24 20:43 Order name: Magnesium; Complete Time: 21:40 07/24 20:43 Order name: NT PRO-BNP; Complete Time: 21:40 07/24 20:43 Order name: PT-INR; Complete Time: 21:40 07/24 20:43 Order name: Troponin (emerg Dept Use Only); Complete Time: 21:40 07/24 20:43 Order name: XRAY Chest (1 view) 07/24 23:52 Order name: Urine Dipstick--Ancillary (enter results) 07/24 23:56 Order name: Urine Dipstick-Ancillary EDMS 07/24 20:43 Order name: EKG; Complete Time: 20:44 07/24 20:43 Order name: Cardiac monitoring; Complete Time: 21:06 07/24 20:43 Order name: EKG - Nurse/Tech; Complete Time: 21:06 07/24 20:43 Order name: IV Saline Lock; Complete Time: 21:06 07/24 20:43 Order name: Labs collected and sent; Complete Time: 21:06 07/24 20:43 Order name: O2 Per Protocol; Complete Time: 21:06 07/24 20:43 Order name: O2 Sat Monitoring; Complete Time: 21:06 ea Administered Medications: 22:05 Drug: Lovenox 100 mg Route: Sub-Q; Site: right lower abdomen; ea 22:30 Follow up: Response: No adverse reaction ea 22:05 Drug: Pepcid 20 mg Route: IVP; Site: right antecubital; ea 23:07 Follow up: Response: No adverse reaction ea 22:06 Drug: SOLU-Medrol 125 mg Route: IVP; Site: right antecubital; ea 22:30 Follow up: Response: No adverse reaction ea 22:06 Drug: Xopenex 2.5 mg Route: Inhalation; ea 22:06 Drug: AtroVENT Aerosol 0.5 mg Route: Inhalation; ea 22:50 Drug: Zofran 4 mg Route: IVP; Site: right antecubital; ea 23:08 Follow up: Response: No adverse reaction; Nausea is decreased ea 22:51 Drug: morphine 4 mg Route: IVP; Site: right antecubital; ea 23:08 Follow up: Response: No adverse reaction; Pain is decreased; RASS: Alert and Calm (0) ea Disposition: 07/24/19 21:50 Hospitalization ordered by Valdemar Coronado for Inpatient Admission. Preliminary diagnosis are Essential (primary) hypertension, Type 2 diabetes mellitus, Chronic obstructive pulmonary disease, unspecified, Chest pain, unspecified. - Bed requested for Telemetry/MedSurg (Inpatient). - Status is Inpatient Admission. ea - Condition is Fair. - Problem is new. - Symptoms have improved. UTI on Admission? No Signatures: Dispatcher [employer] EDMS Theresa Delgado RN RN mw Anderson, Corey, MD MD cha Antunez, Elena, RN RN ea Vicente, Ronaldo RN GAEL estrada Corrections: (The following items were deleted from the chart) 23:36 21:50 Hospitalization Ordered by Valdemar Coronado for Inpatient Admission. Preliminary diagnosis is Essential (primary) hypertension; Type 2 diabetes mellitus; Chronic obstructive pulmonary disease, unspecified; Chest pain, unspecified. Bed requested for Telemetry/MedSurg (Inpatient). Status is Inpatient Admission. Condition is Fair. Problem is new. Symptoms have improved. UTI on Admission? No. kiley 07/25 00:18 07/24 23:36 07/24/2019 21:50 Hospitalization Ordered by Valdemar Coronado for Inpatient ea Admission. Preliminary diagnosis is Essential (primary) hypertension; Type 2 diabetes mellitus; Chronic obstructive pulmonary disease, unspecified; Chest pain, unspecified. Bed requested for Telemetry/MedSurg (Inpatient). Status is Inpatient Admission. Condition is Fair. Problem is new. Symptoms have improved. UTI on Admission? No. mw
--- NOTE | 2019-07-24 21:51 | ER ---
Nurse's Notes [facility] Name: Rick Xavier Age: 74 yrs Sex: Male : 1945 Arrival Date: 07/24/2019 Time: 20:28 Bed 17 Private MD: Diagnosis: Essential (primary) hypertension;Type 2 diabetes mellitus;Chronic obstructive pulmonary disease, unspecified;Chest pain, unspecified Presentation: 07/24 20:32 Presenting complaint: Patient states: chest pain started 3 days ago. today it gotten rv worse. described as pressure, 7/10 pain. Transition of care: patient was not received from another setting of care. Onset of symptoms was July 24, 2019 at 18:00. Risk Assessment: Do you want to hurt yourself or someone else? Patient reports no desire to harm self or others. Initial Sepsis Screen: Does the patient meet any 2 criteria? No. Patient's initial sepsis screen is negative. Does the patient have a suspected source of infection? No. Patient's initial sepsis screen is negative. Care prior to arrival: None. 20:32 Method Of Arrival: Ambulatory rv 20:32 Acuity: MAX 3 rv Historical: - Allergies: 20:36 diphenhydramine HCl; rv 20:36 NOVACAINE; rv 20:36 PENICILLINS; rv 20:36 procaine HCl; rv - Home Meds: 20:36 aspirin 81 mg Oral TbEC [Active]; atorvastatin Oral [Active]; glimepiride 4 mg Oral tab rv 1 tab twice daily [Active]; hydrocodone-acetaminophen 10-325 mg Oral tab [Active]; Lexapro 20 mg Oral tab 1 tab once daily [Active]; losartan Oral [Active]; metformin 1,000 mg Oral tr24 [Active]; Metoprolol Tartrate Oral [Active]; prednisone 5 mg Oral tab [Active]; terazosin Oral [Active]; Trazodone Oral [Active]; Zantac 150 mg Oral tab [Active]; zyzol [Active]; - PMHx: 20:36 Asthma; chronic back pain; COPD; CVA; Depression; Diabetes - NIDDM; Emphysema; rv Myocardial infarction; - PSHx: 20:36 CABG; rv - Immunization history:: Adult Immunizations up to date. - Social history:: Smoking status: Patient/guardian denies using tobacco. - Ebola Screening: : No symptoms or risks identified at this time. - Family history:: not pertinent. Screenin:09 Abuse screen: Denies threats or abuse. Nutritional screening: No deficits noted. ea Tuberculosis screening: No symptoms or risk factors identified. Fall Risk IV access (20 points). Assessment: 20:43 General: Appears in no apparent distress. Behavior is appropriate for age. Pain: ea Complains of pain in chest Pain does not radiate. Pain currently is 7 out of 10 on a pain scale. Quality of pain is described as pressure, Pain began 2-3 days ago. Neuro: Level of Consciousness is awake, alert, obeys commands, Oriented to person, place, time, situation. Cardiovascular: Patient's skin is warm and dry. Respiratory: Airway is patent Respiratory effort is even, unlabored, Respiratory pattern is regular, symmetrical. Derm: Skin is pink, warm \T\ dry. 21:45 Reassessment: Patient and/or family updated on plan of care and expected duration. Pain ea level reassessed. Patient is alert, oriented x 3, equal unlabored respirations, skin warm/dry/pink. 07/25 00:10 Reassessment: Patient and/or family updated on plan of care and expected duration. Pain ea level reassessed. Patient is alert, oriented x 3, equal unlabored respirations, skin warm/dry/pink. Pt admitted to second floor. Left ED via wheelchair per tech. Pt tolerating well. Vital Signs: 07/24 20:33 BP 199 / 92; Pulse 62; Resp 16; Temp 98.2; Pulse Ox 100% ; Weight 98.88 kg; Height 5 rv ft. 10 in. (177.80 cm); Pain 7/10; 21:30 BP 167 / 84; Pulse 62; Resp 18; Pulse Ox 96% on R/A; ea 22:30 BP 186 / 98; Pulse 64; Resp 18; Pulse Ox 98% on R/A; ea 07/25 00:00 BP 177 / 95; Pulse 70; Resp 18; Temp 98; Pulse Ox 98% ; ea 07/24 20:33 Body Mass Index 31.28 (98.88 kg, 177.80 cm) rv ED Course: 07/24 20:28 Patient arrived in ED. cf2 20:33 Triage completed. rv 20:36 Onur Ramírez MD is Attending Physician. kiley 20:43 Amanda Larson RN is Primary Nurse. ea 20:43 Patient has correct armband on for positive identification. Bed in low position. Call ea light in reach. Side rails up X 1. 20:43 surveillance system monitor on. ea 20:45 Inserted saline lock: 20 gauge in right antecubital area, using aseptic technique. ea Blood collected. 20:45 Patient maintains SpO2 saturation greater than 95% on room air. ea 21:10 XRAY Chest (1 view) In Process Unspecified. EDMS 21:10 Arm band placed on right wrist. Patient placed in an exam room, on a stretcher, on ea pulse oximetry. 21:46 Valdemar Coronado is Hospitalizing Provider. [facility] 23:04 No provider procedures requiring assistance completed. Patient admitted, IV remains in ea place. Administered Medications: 22:05 Drug: Lovenox 100 mg Route: Sub-Q; Site: right lower abdomen; ea 22:30 Follow up: Response: No adverse reaction ea 22:05 Drug: Pepcid 20 mg Route: IVP; Site: right antecubital; ea 23:07 Follow up: Response: No adverse reaction ea 22:06 Drug: SOLU-Medrol 125 mg Route: IVP; Site: right antecubital; ea 22:30 Follow up: Response: No adverse reaction ea 22:06 Drug: Xopenex 2.5 mg Route: Inhalation; ea 22:06 Drug: AtroVENT Aerosol 0.5 mg Route: Inhalation; ea 22:50 Drug: Zofran 4 mg Route: IVP; Site: right antecubital; ea 23:08 Follow up: Response: No adverse reaction; Nausea is decreased ea 22:51 Drug: morphine 4 mg Route: IVP; Site: right antecubital; ea 23:08 Follow up: Response: No adverse reaction; Pain is decreased; RASS: Alert and Calm (0) ea Outcome: 21:50 Decision to Hospitalize by Provider. kiley 23:04 Instructed on the need for admit. ea 23:46 Admitted to Med/surg accompanied by tech, room 229, with chart, Report called to heydi Barnhart RN 23:46 Condition: stable 07/25 00:18 Patient left the ED. ea Signatures: Dispatcher [employer] [facility] Onur Ramírez MD MD cha Antunez, Elena RN RN Feliciano Dalton, RN RN natalie Pandey, Lizeth Jesica
[2019-07-24] MEDS ORDERED: LEVALBUTEROL 1.25 MG/3 ML NEB ONE (21:53)
[2019-07-24] MEDS ORDERED: IPRATROPIUM BROM 0.5MG/2.5ML ONE (21:53)
[2019-07-24] MEDS ORDERED: METHYLPREDNISOLONE 125 MG INJ ONE (21:53)
[2019-07-24] MEDS ORDERED: FAMOTIDINE 20 MG/2 ML VIAL IV ONE (21:54)
[2019-07-24] MEDS ORDERED: ENOXAPARIN 100 MG/ML SYR SQ ONE (21:54)
[2019-07-24] MEDS ORDERED: MORPHINE 4 MG/ML SYR ONE (22:39)
[2019-07-24] MEDS ORDERED: ONDANSETRON 4 MG/2 ML VIAL ONE (22:39)
--- NOTE | 2019-07-24 23:29 | P.HP ---
Certification for Inpatient Patient admitted to: Observation With expected LOS: <2 Midnights Practitioner: I am a practitioner with admitting privileges, knowledge of patient current condition, hospital course, and medical plan of care. Services: Services provided to patient in accordance with Admission requirements found in Title 42 Section 412.3 of the Code of Federal Regulations Patient History Date of Service: 07/25/19 Reason for admission: Chest tightness History of Present Illness: 74-year-old gentleman with a history of coronary artery disease, IN status post CABG, history of COPD and emphysema presented emergency department with a complaint of chest tightness of onset today. Patient described chest tightness similar to the symptoms he had when he was diagnosed with a IN requiring CABG. He denied chest pain. He endorsed wheezing and nonproductive cough. He also denied shortness of breath. He also reports headache which was almost resolved at the time of my examination. His blood pressure was noted to be elevated with systolic in the 190s in the ED. Initial troponin is negative. EKG demonstrates sinus rhythm with no ischemic changes. Chest x-ray shows no acute disease. Patient is placed under observation for ACS rule out. Allergies procaine HCl [From Novocain] Allergy (Severe, Verified 02/25/19 10:20) Anaphylaxis diphenhydramine HCl [From Benadryl] Allergy (Intermediate, Verified 02/25/19 10: 20) Hives/Rash Home Medications: Albuterol Inhaler [Ventolin Inhaler*] 2 puff IN Q6HP PRN 02/25/19 Aspirin Chewable [Aspirin Chewable*] 81 mg PO DAILY 02/25/19 Glimepiride 4 mg PO BID 02/25/19 Levocetirizine Dihydrochloride [Xyzal] 5 mg PO DAILY 02/25/19 Losartan Potassium 50 mg PO DAILY 02/25/19 Metformin HCl [Metformin ER Osmotic] 100 mg PO BEDTIME 02/25/19 Prednisone [Prince] 5 mg PO DAILY 02/25/19 Terazosin HCl 5 mg PO BEDTIME 02/25/19 Trazodone HCl 100 mg PO BEDTIME 02/25/19 Umeclidinium Brm/Vilanterol Tr [Anoro Ellipta 62.5-25 Mcg INH] 1 puff IN TID PRN 02/25/19 raNITIdine HCl [Zantac] 150 mg PO DAILY 02/25/19 Escitalopram [Lexapro*] 1 tab PO DAILY 02/26/19 Metoprolol Succinate [Toprol Xl] 1 tab PO DAILY 02/26/19 Hydrocodone Bit/Acetaminophen [Hydrocodon-Acetaminophn 10-325] 1 tab PO QID PRN 07/25/19 - Past Medical/Surgical History Diabetic: Yes -: htn -: strokes x8 -: cardiac arrest x5 -: hernia -: Asthma -: COPD -: Emphysema -: Diabetes -: triple bypass -: hernia repair x2 -: eye lense replacements -: neck surgery -: Cataract surgery - Family History Father -: Heart disease, Hypertension, Stroke Mother -: Diabetes - Social History Smoking Status: Former smoker Alcohol use: No CD- Drugs: No Caffeine use: Yes Review of Systems Other: General: No fever, no malaise, no unintentional weight loss. Eyes: No eye discharge, CVS: No palpitation, no lightheadedness. GI: No abdominal pain, no nausea no vomit, no constipation, no diarrhea. Genitourinary: No dysuria, no urinary frequency, no incontinence, no hematuria. Musculoskeletal: No joint pains, or joint swelling, no gait instability. Neurology: No headache, no asymmetric, weakness, no problem with swallowing. Except as documented, all other systems reviewed and negative. Physical Examination - Physical Exam General: Alert, In no apparent distress, Oriented x3 HEENT: Normocephalic, PERRLA, Mucous membr. moist/pink, Sclerae nonicteric Neck: Supple, 2+ carotid pulse no bruit, JVD not distended, No Thyromegaly Respiratory: Normal air movement, Expiratory wheezes Cardiovascular: No edema, Normal pulses, Regular rate/rhythm, Normal S1 S2, No murmurs Capillary refill: <2 Seconds Gastrointestinal: Normal bowel sounds, Soft and benign, Non-distended, No tenderness Musculoskeletal: No swelling, No erythema Integumentary: No rashes Neurological: Normal speech, Normal strength at 5/5 x4 extr, Cranial nerves 3- 12 intact - Studies Laboratory Data (last 24 hrs) 07/24/19 20:40: PT 12.1, INR 1.03 07/24/19 20:40: WBC 7.1, Hgb 12.2 L, Hct 38.3 L, Plt Count 161 07/24/19 20:40: Sodium 136, Potassium 4.7, BUN 14, Creatinine 1.07, Glucose 124 H, Magnesium 1.9, Total Bilirubin 0.3, AST 20, ALT 25, Alkaline Phosphatase 87 Assessment and Plan - Problems (Diagnosis) (1) Chest tightness Current Visit: Yes Status: Acute (2) Coronary artery disease Current Visit: Yes Status: Acute (3) Hx of CABG Current Visit: Yes Status: Acute (4) COPD (chronic obstructive pulmonary disease) Onset Date: 05/01/18 Current Visit: No Status: Acute Qualifiers: (5) Diabetes mellitus Current Visit: No Status: Acute Qualifiers: (6) Uncontrolled hypertension Current Visit: Yes Status: Acute - Plan I suspect patient symptoms more related to COPD than cardiac. Place under observation Telemetry Trend troponin x3 Continue aspirin Lipitor, check lipid profile Metoprolol, losartan and terazosin for blood pressure control Add hydralazine IV p.r.n. for BP spikes Obtain Echo Hold metformin Manage blood sugar with insulin sliding scale Bronchodilators for COPD - Advance Directives Does patient have a Living Will: Yes Does patient have a Durable POA for Healthcare: Yes
[2019-07-24] MEDS ORDERED: MORPHINE 4 MG/ML SYR IV PRN (23:51)
[2019-07-24] MEDS ORDERED: NITROGLYCERIN 0.4 MG/TAB SL PRN (23:51)
[2019-07-24 23:55] LABS: Urine Blood TRACE (NEG); Urine Glucose NEGATIVE (NEG); Urine Protein NEGATIVE (NEG); Urine Specific Gravity 1.015 (1.005-1.030)
[2019-07-25 00:16] VITALS: BMI 32.5
[2019-07-25 00:58] LABS: Troponin I 0.02 ng/mL (0.0-0.045)
[2019-07-25] MEDS: IPRATROPIUM BROM 0.5MG/2.5ML NEB SCH ×2 (01:58→08:10)
[2019-07-25] MEDS: ALBUTEROL 2.5 MG/3 ML NEB SOL NEB SCH ×2 (01:58→08:10)
[2019-07-25] MEDS ORDERED: HYDROCODONE/APAP 10/325 TAB PO PRN (02:12)
[2019-07-25] MEDS ORDERED: HOME MED 1 EA UNK (Umeclidinium Brm/Vilanterol Tr [Anoro Ellipta 62.5-25 Mcg Inh] 1 PUFF) IN PRN (02:12)
[2019-07-25 02:57] VITALS: O2SAT 94
[2019-07-25 05:31] LABS: Urine Appearance CLEAR; Urine Bilirubin NEGATIVE (NEG); Urine Blood NEGATIVE (NEG); Urine Color YELLOW; Urine Glucose NEGATIVE (NEG); Urine Protein NEGATIVE (NEG); Urine pH 6.5 (5.0-7.0)
[2019-07-25 05:33] VITALS: BP 145/75
[2019-07-25 05:35] LABS: Urine Microscopic Reflex NO UMIC
[2019-07-25 06:01] LABS: Absolute Lymphocytes (CBC) 0.6 K/uL (0.7-4.9); Basophils % 0.4 % (0-1.3); Hematocrit 37.7 % (39.6-49.0); Lymphocytes % 9.6 % (15.3-44.8); MPV 8.4 fL (7.6-11.3); RBC Red Blood Cell Count 4.85 M/uL (4.33-5.43)
[2019-07-25 06:19] LABS: Potassium 4.7 mmol/L (3.5-5.1)
[2019-07-25] MEDS ORDERED: INSULIN -REGULAR HUMAN 50 UNIT/0.5 ML ML SQ SCH (07:30)
--- NOTE | 2019-07-25 07:44 | EKG ---
Test Date: 2019-07-24 Test Time: 20:47:39 Medical Records Coordinator: RAY MEASUREMENT RESULTS: Intervals: Rate: 60 MT: 194 QRSD: 80 QT: 444 QTc: 444 [place]: P: 27 MT: 194 QRS: 27 T: 75 INTERPRETIVE STATEMENTS: Normal sinus rhythm Normal ECG Compared to ECG 02/25/2019 00:13:40 No significant changes Electronically Signed On 07-25-19 07:43:13 BOILERMAKER APPRENTICE by Garry Pisano
--- NOTE | 2019-07-25 07:55 | RAD REPORT ---
EXAM DESCRIPTION: RAD - Chest Single View - 07/24/2019 9:10 pm CLINICAL HISTORY: Chest pain COMPARISON: February 25 TECHNIQUE: AP portable chest image was obtained 2103 hours . FINDINGS: No focal lung parenchymal process. Interstitial pattern is stable. No failure or volume ov erload suspected. Heart and vasculature are normal. No measurable pleural effusion and no pneumothora x. No acute bony abnormality seen. No acute aortic findings suspected. IMPRESSION: No acute cardiopulmonary process.
[2019-07-25] MEDS ORDERED: INFLUENZA VACCINE (for 3y+) 0.5 ML DOSE IMVAC ONE (08:00)
[2019-07-25 08:35] LABS: Blood Morphology Comment NOT SEEN (NOT SEEN); Platelet Estimate ADEQ
[2019-07-25] MEDS ORDERED: CETIRIZINE HCL 5 MG TABLET PO SCH (09:00)
[2019-07-25] MEDS ORDERED: LOSARTAN POTASSIUM 50 MG TABLET PO SCH (09:00)
[2019-07-25] MEDS ORDERED: ESCITALOPRAM 20 MG TAB PO SCH (09:00)
[2019-07-25] MEDS ORDERED: RANITIDINE 150 MG TABLET PO SCH (09:00)
[2019-07-25] MEDS ORDERED: METOPROLOL XL 100 MG TAB PO SCH (09:00)
[2019-07-25] MEDS ORDERED: predniSONE 5 MG TAB PO SCH (09:00)
[2019-07-25] MEDS ORDERED: METOPROLOL TAR 50 MG TAB PO SCH (09:00)
[2019-07-25] MEDS ORDERED: ASPIRIN EC 81 MG TAB PO SCH (09:00)
[2019-07-25] MEDS ORDERED: ENOXAPARIN 40 MG/0.4 ML SQ SCH (09:00)
[2019-07-25 09:25] VITALS: TEMP 98
--- NOTE | 2019-07-25 10:43 | ECHO ---
HEIGHT: 5 ft 9 in WEIGHT: 220 lb 6.4 oz DATE OF STUDY: 07/25/[address]: jim santizo 2-DIMENSIONAL: YES M.MODE: YES DOPPLER: YES COLOR FLOW: YES TDS: NO PORTABLE: NO DEFINITY: NO BUBBLE STUDY: NO DIAGNOSIS: HISTORY OF CORONARY ARTERY BYPASS GRAFT CARDIAC HISTORY: CATHERIZATION: YES SURGERY: YES PROSTHETIC VALVE: NO PACEMAKER: NO MEASUREMENTS (cm) DIASTOLIC (NORMALS) SYSTOLIC (NORMALS) IVSd 1.1 (0.6-1.2) LA Diam 4.3 (1.9-4.0) LVEF 78% LVIDd 3.9 (3.5-5.7) LVIDs 2.1 (2.0-3.5) %FS 46% LVPWd 1.2 (0.6-1.2) Ao Diam 3.8 (2.0-3.7) 2 DIMENSIONAL ASSESSMENT: RIGHT ATRIUM: NORMAL LEFT ATRIUM: DILATED RIGHT VENTRICLE: NORMAL LEFT VENTRICLE: NORMAL TRICUSPID VALVE: NORMAL MITRAL VALVE: NORMAL PULMONIC VALVE: NORMAL AORTIC VALVE: NORMAL PERICARDIAL EFFUSION: NONE AORTIC ROOT: NORMAL LEFT VENTRICULAR WALL MOTION: NORMAL DOPPLER/COLOR FLOW: NORMAL COMMENTS: NORMAL LEFT VENTRICULAR EJECTION FRACTION. DILATED LEFT ATRIUM. OTHERWISE NORMAL 2D ECHOCARDIOGRAM WITH DOPPLER. TECHNOLOGIST: Eduardo DRAKE
--- NOTE | 2019-07-25 15:16 | P.SSS ---
Patient History Date of Service: 07/25/19 Reason for admission: Chest tightness History of Present Illness: See HPI Allergies procaine HCl [From Novocain] Allergy (Severe, Verified 02/25/19 10:20) Anaphylaxis diphenhydramine HCl [From Benadryl] Allergy (Intermediate, Verified 02/25/19 10: 20) Hives/Rash Home Medications: Albuterol Inhaler [Ventolin Inhaler*] 2 puff IN Q6HP PRN 02/25/19 Aspirin Chewable [Aspirin Chewable*] 81 mg PO DAILY 02/25/19 Glimepiride 4 mg PO BID 02/25/19 Levocetirizine Dihydrochloride [Xyzal] 5 mg PO DAILY 02/25/19 Losartan Potassium 50 mg PO DAILY 02/25/19 Metformin HCl [Metformin ER Osmotic] 100 mg PO BEDTIME 02/25/19 Prednisone [Prince] 5 mg PO DAILY 02/25/19 Terazosin HCl 5 mg PO BEDTIME 02/25/19 Trazodone HCl 100 mg PO BEDTIME 02/25/19 Umeclidinium Brm/Vilanterol Tr [Anoro Ellipta 62.5-25 Mcg INH] 1 puff IN TID PRN 02/25/19 raNITIdine HCl [Zantac] 150 mg PO DAILY 02/25/19 Escitalopram [Lexapro*] 1 tab PO DAILY 02/26/19 Metoprolol Succinate [Toprol Xl] 1 tab PO DAILY 02/26/19 Hydrocodone Bit/Acetaminophen [Hydrocodon-Acetaminophn 10-325] 1 tab PO QID PRN 07/25/19 - Past Medical/Surgical History Has patient received pneumonia vaccine in the past: Yes Diabetic: Yes -: htn -: strokes x8 -: cardiac arrest x5 -: hernia -: Asthma -: COPD -: Emphysema -: Diabetes -: triple bypass -: hernia repair x2 -: eye lense replacements -: neck surgery -: Cataract surgery - Family History Father -: Heart disease, Hypertension, Stroke Mother -: Diabetes - Social History Smoking Status: Former smoker Alcohol use: No CD- Drugs: No Caffeine use: Yes Place of Residence: Home Review of Systems 10-point ROS is otherwise unremarkable Physical Examination - Vital Signs Temperature: 98.0 F Blood Pressure: 145/75 Pulse: 74 Respirations: 19 Pulse Ox (%): 98 - Physical Exam General: Alert, In no apparent distress HEENT: Atraumatic, PERRLA, Mucous membr. moist/pink, EOMI, Sclerae nonicteric Neck: Supple, 2+ carotid pulse no bruit, No LAD, Without JVD or thyroid abnormality Respiratory: Clear to auscultation bilaterally, Normal air movement Cardiovascular: Regular rate/rhythm, Normal S1 S2 Gastrointestinal: Normal bowel sounds, No tenderness Musculoskeletal: No tenderness Integumentary: No rashes Neurological: Normal gait, Normal speech, Normal strength at 5/5 x4 extr, Normal tone, Normal affect Lymphatics: No axilla or inguinal lymphadenopathy - Studies Laboratory Data (last 24 hrs) 07/24/19 20:40: PT 12.1, INR 1.03 07/24/19 20:40: WBC 7.1, Hgb 12.2 L, Hct 38.3 L, Plt Count 161 07/24/19 20:40: Sodium 136, Potassium 4.7, BUN 14, Creatinine 1.07, Glucose 124 H, Magnesium 1.9, Total Bilirubin 0.3, AST 20, ALT 25, Alkaline Phosphatase 87 - Diagnosis (Problem(s)) (1) Chest pain Status: Acute Qualifiers: Chest pain type: unspecified Qualified Code(s): R07.9 - Chest pain, unspecified (2) Coronary artery disease Status: Chronic Qualifiers: Coronary Disease-Associated Artery/Lesion type: [place] artery [place] vs. transplanted heart: [place] heart Associated angina: without angina Qualified Code(s): I25.10 - Atherosclerotic heart disease of [place] coronary artery without angina pectoris (3) Diabetes mellitus Status: Chronic Qualifiers: Diabetes mellitus type: type 2 Diabetes mellitus residential insulin use: with residential use Diabetes mellitus complication status: without complication Qualified Code(s): E11.9 - Type 2 diabetes mellitus without complications; Z79.4 - [facility] (current) use of insulin (4) Hx of CABG Status: Chronic (5) Uncontrolled hypertension Status: Chronic - Disposition Disposition: ROUTINE DISCHARGE Condition: GOOD Patient Discharge Instructions: Please resume all the medicaton as prescribed. If your BP is over 160/90 than take 2 pills of Losartan. Diet: Regular Activity: Ad suhail
[2019-07-25] MEDS ORDERED: TRAZODONE 50 MG TABLET PO SCH (21:00)
[2019-07-25] MEDS ORDERED: TERAZOSIN HCL 5 MG CAP PO SCH (21:00)
== END 2019-07-25 12:09 | disposition home or self-care (01) ==
LOC: ER 20:25 → ERHOLD 23:32 → 2ND 23:47
PROVIDERS: ADMIT Internal Medicine; ATTEND Internal Medicine
DX: R07.9 Chest pain, unspecified (principal); I25.10 Atherosclerotic heart disease of native coronary artery without angina pectoris; E11.9 Type 2 diabetes mellitus without complications; I10 Essential (primary) hypertension; J44.9 Chronic obstructive pulmonary disease, unspecified; Z95.1 Presence of aortocoronary bypass graft; Z86.73 Personal history of transient ischemic attack (TIA), and cerebral infarction without residual deficits; I25.2 Old myocardial infarction; Z79.82 Long term (current) use of aspirin; Z23 Encounter for immunization
CPT/HCPCS: 93005; 93306; 85025 ×2; 80048 ×2; 36415; 83735; 85610; 80061; 82947 ×2; 80076; 81003 ×2; 84484 ×3; 83880; 71045; 90471; 94640; 94760 ×2; 96375; 96372; 96374; 99285; Q2035; J1650 ×2; J2930; J2405; G0378 ×2; J7512

== ENCOUNTER 2020-01-07 | Emergency (ER) | payer OTHER | END 2020-01-07 22:44 | disposition home or self-care (01) | CPT/HCPCS: 70450; 72125; 99284; J7512 ==

== ENCOUNTER 2020-06-23 16:27 | Inpatient (IN) | payer OTHER ==
[2020-06-23] MEDS ORDERED: NA CHLORIDE 0.9% 2,000 ML ONE (17:20)
[2020-06-23 17:29] LABS: Basophils % 0.3 % (0-1.3); Hematocrit 39.6 % (39.6-49.0); Lymphocytes % 6.3 % (15.3-44.8); MPV 8.2 fL (7.6-11.3); RBC Red Blood Cell Count 4.93 M/uL (4.33-5.43)
[2020-06-23 17:34] LABS: Protime INR 1.09
--- NOTE | 2020-06-23 17:38 | RAD REPORT ---
EXAM DESCRIPTION: RAD - Chest Single View - 06/23/2020 5:30 pm CLINICAL HISTORY: Cough;Fever Chest pain. COMPARISON: Chest Single View dated 07/24/2019; Chest Single View dated 02/25/2019; Chest Single View dated 04/29/2018; Chest Single View dated 07/22/2017 FINDINGS: Portable technique limits examination quality. Small opacity is present in the left mid lung laterally likely representing developing pneumonia. The heart is upper limit normal size with sternotomy wires present. No displaced fractures.Cervical spin e hardware plate. IMPRESSION: Developing left mid lung pneumonia.
[2020-06-23 17:45] LABS: ALT/SGPT 23 U/L (12-78); AST/SGOT 14 U/L (15-37); Albumin 3.6 g/dL (3.4-5.0); Alkaline Phosphatase 126 U/L (45-117); Amylase 76 U/L (25-115); BUN Blood Urea Nitrogen 18 mg/dL (7-18); Bicarbonate 24 mmol/L (21-32); Bilirubin Direct 0.3 mg/dL (0-0.2); Bilirubin Total 0.8 mg/dL (0.2-1.0); CKMB Creatine Kinase MB < 1.0 ng/mL (0.3-3.6); Creatine Phosphokinase 41 U/L (39-308); Glucose Level 269 mg/dL (74-106); Lipase 171 U/L (73-393); Potassium 3.6 mmol/L (3.5-5.1); Sodium Level 135 mmol/L (136-145); Troponin (Emerg Dept Use Only) 0.02 ng/mL (0.0-0.045)
[2020-06-23] MEDS ORDERED: AZITHROMYCIN IV 500 MG in NA CHLORIDE 0.9% 250 ML IVPB ONE (18:00)
--- NOTE | 2020-06-23 18:42 | RAD REPORT ---
EXAM DESCRIPTION: CTAbdomen Pelvis W Contrast - 06/23/2020 6:20 pm CLINICAL HISTORY: Abdominal pain. ABD PAIN COMPARISON: Abdomen Pelvis W Contrast dated 02/25/2019; Abdomen Pelvis W Contrast dated 7; Chest Single View dated 06/23/2020 TECHNIQUE: Biphasic CT imaging of the abdomen and pelvis was performed with 100 ml non-ionic IV cont rast. All CT scans are performed using dose optimization technique as appropriate and may include automated exposure control or mA/KV adjustment according to patient size. FINDINGS: Mild opacities are seen in the left lung base and lingula suspicious for infiltrate/pneumo liliana. Mild fatty liver is seen. The spleen, pancreas, adrenal glands are within normal limits. No renal mas s or hydronephrosis. Small infrarenal abdominal aortic aneurysm, unchanged. No bowel obstruction, free air, free fluid or abscess. The appendix is normal. Irregular thickening the wall of the sigmoid colon numerous diverticula present. Small amount of posterior linear extralum inal air is seen in this region. No evidence of significant lymphadenopathy. Moderate lumbosacral degenerative changes. IMPRESSION: [id number] opacities are present in the left lung base and lingula likely represen ting infiltrate/ pneumonia Moderate wall thickening the sigmoid colon wall with several diverticula in the region noted. This co uld be related to neoplasm or diverticulitis. Advise followup colonoscopy if not recently performed.
--- NOTE | 2020-06-23 18:57 | EDPHYS ---
Physician Documentation [facility] Name: Rick Xavier Age: 75 yrs Sex: Male : 1945 Arrival Date: 06/23/2020 Time: 16:29 Bed 13 Private MD: Hamzah Dos Santos R ED Physician Onur Ramírez HPI: 06/23 17:35 This 75 yrs old Male presents to ER via Wheelchair with complaints of kb Vomiting, Fever. 17:35 The patient presents to the emergency department with nausea, vomiting. Onset: The kb symptoms/episode began/occurred today, at 16:00. Possible causes: unknown. The symptoms are aggravated by nothing. The symptoms are alleviated by nothing. Associated signs and symptoms: Pertinent positives: abdominal pain, fever, nausea, vomiting. Severity of symptoms: At their worst the symptoms were moderate in the emergency department the symptoms are unchanged. The patient has not experienced similar symptoms in the past. The patient has not recently seen a physician. Pt reports fever, body aches, nausea and vomiting that started today. States he has a pain to left lateral abd that has been there for [address] Dos Santos hasn't been able to figure out why. Also reports he has been coughing up yellow sputum. Has history of COPD. Historical: - Allergies: 16:45 diphenhydramine HCl; aa5 16:45 NOVACAINE; aa5 16:45 PENICILLINS; aa5 16:45 procaine HCl; aa5 - Home Meds: 17:01 Prilosec 20 mg Oral cpDR [Active]; glimepiride 4 mg Oral tab 1 tab twice daily aa5 [Active]; metoprolol tartrate 100 mg oral tab [Active]; Zyrtec 10 mg Oral tab [Active]; escitalopram oxalate 20 mg oral tab [Active]; aspirin 81 mg Oral chew [Active]; losartan 50 mg oral tab [Active]; prednisone 5 mg Oral tab [Active]; Anoro Ellipta 62.5-25 mcg/actuation inhalation dsdv [Active]; Ventolin HFA 90 mcg/actuation Nebulizer HFAA [Active]; atorvastatin 20 mg oral tab [Active]; metformin 1,000 mg oral tab [Active]; terazosin 5 mg oral cap [Active]; trazodone 100 mg Oral tab [Active]; Albuterol Nebulizer [Active]; - PMHx: 16:45 Asthma; chronic back pain; COPD; CVA; Depression; Diabetes - NIDDM; Emphysema; aa5 Myocardial infarction; - PSHx: 16:45 CABG; Hernia repair; aa5 - Immunization history:: Adult Immunizations up to date. - Social history:: Patient/guardian denies using street drugs, IV drugs, tobacco products, Smoking status: Patient/guardian denies using tobacco, Patient/guardian denies using. ROS: 17:24 ENT: Negative for injury, pain, and discharge, Neck: Negative for injury, pain, and kb swelling, Cardiovascular: Negative for chest pain, palpitations, and edema, Back: Negative for injury and pain, MS/Extremity: Negative for injury and deformity, Skin: Negative for injury, rash, and discoloration, Neuro: Negative for headache, weakness, numbness, tingling, and seizure. 17:24 Constitutional: Positive for body aches, fever. 17:24 Respiratory: Positive for cough, with yellow sputum. 17:24 Abdomen/GI: Positive for abdominal pain, nausea and vomiting. Exam: 17:16 ECG was reviewed by the Attending Physician. kb 17:24 Constitutional: This is a well developed, well nourished patient who is awake, alert, kb and in no acute distress. Head/Face: Normocephalic, atraumatic. Chest/axilla: Normal chest wall appearance and motion. Nontender with no deformity. No lesions are appreciated. Cardiovascular: Regular rate and rhythm with a normal S1 and S2. No gallops, murmurs, or rubs. Normal PMI, no JVD. No pulse deficits. Respiratory: Lungs have equal breath sounds bilaterally, clear to auscultation and percussion. No rales, rhonchi or wheezes noted. No increased work of breathing, no retractions or nasal flaring. Back: No spinal tenderness. No costovertebral tenderness. Full range of motion. Skin: Warm, dry with normal turgor. Normal color with no rashes, no lesions, and no evidence of cellulitis. MS/ Extremity: Pulses equal, no cyanosis. Neurovascular intact. Full, normal range of motion. Neuro: Awake and alert, GCS 15, oriented to person, place, time, and situation. Cranial nerves II-XII grossly intact. Motor strength 5/5 in all extremities. Sensory grossly intact. Cerebellar exam normal. Normal gait. 17:24 Abdomen/GI: Inspection: distension, Bowel sounds: normal, in all quadrants, Palpation: moderate abdominal tenderness, in the anterior aspect of left lateral abdomen. Vital Signs: 16:45 BP 158 / 83; Pulse 118; Resp 24 S; Temp 98.1(O); Pulse Ox 93% on R/A; aa5 17:05 Weight 101.15 kg; iw 17:52 BP 118 / 85; Pulse 114; Resp 18 S; Pulse Ox 95% on R/A; iw 21:03 BP 152 / 100; Pulse 102; Resp 26; Temp 98.3; Pulse Ox 97% on R/A; fc 21:22 BP 152 / 105; Pulse 103; Resp 22; Temp 98.8; Pulse Ox 97% ; Pain 0/10; bb3 MDM: 16:45 Patient medically screened. kb 17:30 Data reviewed: vital signs, nurses notes. Data interpreted: Pulse oximetry: on room air kb is 93 %. Interpretation: acceptable. 18:55 Counseling: I had a detailed discussion with the patient and/or guardian regarding: the kb historical points, exam findings, and any diagnostic results supporting the discharge/admit diagnosis, lab results, radiology results, the need for further work-up and treatment in the hospital. Physician consultation: Oc WILLARD was contacted at 18:55, regarding admission, to the telemetry unit. patient's condition, and will see patient in ED, immediately. 06/23 16:54 Order name: Amylase, Serum; Complete Time: 17:47 kb 06/23 16:54 Order name: Basic Metabolic Panel; Complete Time: 17:47 kb 06/23 16:54 Order name: Blood Culture Adult (2) kb 06/23 16:54 Order name: CBC with Diff; Complete Time: 19:59 kb 06/23 16:54 Order name: Ckmb; Complete Time: 17:47 kb 06/23 16:54 Order name: CPK; Complete Time: 17:47 kb 06/23 16:54 Order name: Lactate; Complete Time: 17:47 kb 06/23 16:54 Order name: LFT's; Complete Time: 17:47 kb 06/23 16:54 Order name: Lipase; Complete Time: 17:47 kb 06/23 16:54 Order name: Procalcitonin; Complete Time: 18:14 kb 06/23 16:54 Order name: Protime (+inr); Complete Time: 17:48 kb 06/23 16:54 Order name: Ptt, Activated; Complete Time: 17:48 kb 06/23 16:54 Order name: Troponin (emerg Dept Use Only); Complete Time: 17:47 kb 06/23 16:54 Order name: Urine Microscopic Only kb 06/23 16:54 Order name: Chest Single View XRAY; Complete Time: 17:40 kb 06/23 16:54 Order name: Flu; Complete Time: 18:23 kb 06/23 17:41 Order name: Glucose, Ancillary Testing; Complete Time: 17:41 EDMS 06/23 17:42 Order name: COVID-19 kb 06/23 17:48 Order name: CT Abd/Pelvis - IV Contrast Only; Complete Time: 18:45 kb 06/23 18:42 Order name: SARS-COV-2 RT PCR; Complete Time: 19:49 EDMS 06/23 19:58 Order name: CBC Smear Scan; Complete Time: 19:59 EDMS 06/23 20:12 Order name: Urine Dipstick--Ancillary (enter results) ar5 06/23 20:24 Order name: Lactate Sepsis 2 HR Follow-up; Complete Time: 20:31 EDMS 06/23 21:13 Order name: Urine Dipstick-Ancillary; Complete Time: 21:14 EDMS 06/23 16:54 Order name: Accucheck; Complete Time: 17:29 kb 06/23 16:54 Order name: Cardiac monitoring; Complete Time: 17:41 kb 06/23 16:54 Order name: EKG - Nurse/Tech; Complete Time: 17:23 kb 06/23 16:54 Order name: IV Saline Lock - Large Bore; Complete Time: 17:23 kb 06/23 16:54 Order name: Labs collected and sent; Complete Time: 17:23 kb 06/23 16:54 Order name: O2 Per Protocol; Complete Time: 17:50 kb 06/23 16:54 Order name: O2 Sat Monitoring; Complete Time: 17:50 kb 06/23 16:54 Order name: Urine Dipstick-Ancillary (obtain specimen); Complete Time: 19:40 kb EC:16 Rate is 119 beats/min. Rhythm is regular. QRS [place] is Normal. SD interval is normal at kb 142 msec. QRS interval is normal. QT interval is normal at 78 msec. Administered Medications: 17:10 Drug: NS 0.9% (30 ml/kg) 30 ml/kg Route: IV; Rate: bolus; Site: right forearm; iw 17:25 Drug: Zithromax 500 mg Route: IVPB; Infused Over: 1 hrs; Site: right forearm; iw 21:17 Follow up: Response: No adverse reaction bb3 20:15 Drug: Albuterol 2.5 mg Route: Inhalation; bb3 21:16 Follow up: Response: No adverse reaction; Marked relief of symptoms bb3 20:15 Drug: AtroVENT Aerosol 0.5 mg Route: Inhalation; bb3 21:15 Follow up: Response: No adverse reaction; Marked relief of symptoms bb3 20:20 Drug: LevaQUIN 750 mg Volume: 150 ml; Route: IVPB; Infused Over: 90 mins; Site: right bb3 forearm; 21:10 Follow up: IV Status: Completed infusion iw 21:16 Follow up: Response: No adverse reaction bb3 21:14 Drug: Flagyl 500 mg Volume: 100 ml; Route: IVPB; Rate: 200 ml/hr; Infused Over: 30 bb3 mins; Site: left hand; 21:16 Follow up: Response: No adverse reaction bb3 Disposition: 06/24 07:33 Co-signature as Attending Physician, Onur Ramírez MD I agree with the assessment and kiley plan of care. Disposition: 06/23/20 18:56 Hospitalization ordered by Florin Chacon for Inpatient Admission. Preliminary diagnosis are Pneumonia, unspecified organism, Generalized abdominal pain - left lateral pain, moderate wall thickening of sigmoid colon. - Bed requested for Telemetry/MedSurg (Inpatient). - Status is Inpatient Admission. bb3 - Condition is Stable. - Problem is new. - Symptoms are unchanged. Signatures: Dispatcher [employer] Priscila Contreras FNP-C FNP-Onru Menezes MD MD cha Chretien, Felicia RN GAEL Darlin Keller RN RN Callie Villalba RN GAEL aa5 Marina Maravilla bb3 Corrections: (The following items were deleted from the chart) 06/23 18:42 17:42 CORONAVIRUS ordered. EDMS EDMS 18:58 18:56 Hospitalization Ordered by Florin Chacon DO for Inpatient Admission. Preliminary kb diagnosis is Pneumonia, unspecified organism. Bed requested for Telemetry/MedSurg (Inpatient). Status is Inpatient Admission. Condition is Stable. Problem is new. Symptoms are unchanged. kb 18:58 18:58 06/23/2020 18:56 Hospitalization Ordered by Florin Chacon DO for Inpatient kb Admission. Preliminary diagnosis is Pneumonia, unspecified organism; Generalized abdominal pain - left lateral pain, moderate inflammation of sigmoid colon. Bed requested for Telemetry/MedSurg (Inpatient). Status is Inpatient Admission. Condition is Stable. Problem is new. Symptoms are unchanged. kb 20:01 18:58 06/23/2020 18:56 Hospitalization Ordered by Florin Chacon DO for Inpatient fc Admission. Preliminary diagnosis is Pneumonia, unspecified organism; Generalized abdominal pain - left lateral pain, moderate wall thickening of sigmoid colon. Bed requested for Telemetry/MedSurg (Inpatient). Status is Inpatient Admission. Condition is Stable. Problem is new. Symptoms are unchanged. kb 21:38 20:01 06/23/2020 18:56 Hospitalization Ordered by Florin Chacon DO for Inpatient bb3 Admission. Preliminary diagnosis is Pneumonia, unspecified organism; Generalized abdominal pain - left lateral pain, moderate wall thickening of sigmoid colon. Bed requested for Telemetry/MedSurg (Inpatient). Status is Inpatient Admission. Condition is Stable. Problem is new. Symptoms are unchanged. fc
--- NOTE | 2020-06-23 18:57 | ER ---
Nurse's Notes [facility] Name: Rick Xavier Age: 75 yrs Sex: Male : 1945 Arrival Date: 06/23/2020 Time: 16:29 Bed 13 Private MD: Hamzah Dos Santos R Diagnosis: Pneumonia, unspecified organism;Generalized abdominal pain-left lateral pain, moderate wall thickening of sigmoid colon Presentation: 06/23 16:45 Chief complaint: Patient states: Fever up to 100.2 F today around 1300 and vomiting aa5 since 1600. Pt's states "I gave him Excedrin, Ibuprofen and [place] today". Pt c/o pain all over body. Pt also reports productive cough. 16:45 Coronavirus screen: cough unrelated to allergies, fever, Client presents with at least aa5 one sign or symptom that may indicate coronavirus-19. Standard/surgical mask placed on the client. Provider contacted for isolation considerations. Ebola Screen: Patient negative for fever greater than or equal to 101.5 degrees Fahrenheit, and additional compatible Ebola Virus Disease symptoms. Initial Sepsis Screen: Does the patient meet any 2 criteria? RR > 20 per min. HR > 90 bpm. Does the patient have a suspected source of infection? Yes: Productive cough/pneumonia. Risk Assessment: Do you want to hurt yourself or someone else? Patient reports no desire to harm self or others. Onset of symptoms was June 23, 2020. 16:45 Acuity: MAX 2 aa5 16:45 Method Of Arrival: Wheelchair aa5 Historical: - Allergies: 16:45 diphenhydramine HCl; aa5 16:45 NOVACAINE; aa5 16:45 PENICILLINS; aa5 16:45 procaine HCl; aa5 - Home Meds: 17:01 Prilosec 20 mg Oral cpDR [Active]; glimepiride 4 mg Oral tab 1 tab twice daily aa5 [Active]; metoprolol tartrate 100 mg oral tab [Active]; Zyrtec 10 mg Oral tab [Active]; escitalopram oxalate 20 mg oral tab [Active]; aspirin 81 mg Oral chew [Active]; losartan 50 mg oral tab [Active]; prednisone 5 mg Oral tab [Active]; Anoro Ellipta 62.5-25 mcg/actuation inhalation dsdv [Active]; Ventolin HFA 90 mcg/actuation Nebulizer HFAA [Active]; atorvastatin 20 mg oral tab [Active]; metformin 1,000 mg oral tab [Active]; terazosin 5 mg oral cap [Active]; trazodone 100 mg Oral tab [Active]; Albuterol Nebulizer [Active]; - PMHx: 16:45 Asthma; chronic back pain; COPD; CVA; Depression; Diabetes - NIDDM; Emphysema; aa5 Myocardial infarction; - PSHx: 16:45 CABG; Hernia repair; aa5 - Immunization history:: Adult Immunizations up to date. - Social history:: Patient/guardian denies using street drugs, IV drugs, tobacco products, Smoking status: Patient/guardian denies using tobacco, Patient/guardian denies using. Screenin:20 Abuse screen: Denies threats or abuse. Denies injuries from another. Nutritional iw screening: No deficits noted. Tuberculosis screening: No symptoms or risk factors identified. Fall Risk IV access (20 points). Assessment: 17:19 General: Appears in no apparent distress. Behavior is calm, cooperative. Pain: iw Complains of pain in left upper quadrant. Neuro: Level of Consciousness is awake, alert, obeys commands, Oriented to person, place, time, situation, Moves all extremities. Full function. Cardiovascular: Denies chest pain, Capillary refill < 3 seconds in bilateral fingers Patient's skin is warm and dry. Respiratory: Airway is patent Respiratory effort is even, unlabored, Respiratory pattern is regular, symmetrical, Denies cough, shortness of breath labored breathing. GI: Abdomen is round non-distended, Abd is soft X 4 quads Reports upper abdominal pain, nausea, vomiting, Patient currently denies diarrhea. Derm: Skin is intact, is healthy with good turgor. Musculoskeletal: Range of motion: intact in all extremities. 18:00 Reassessment: Patient appears in no apparent distress at this time. Patient and/or iw family updated on plan of care and expected duration. Pain level reassessed. Patient is alert, oriented x 3, equal unlabored respirations, skin warm/dry/pink. pt denies pain, warm blanket given, Zithromax order faxed to pharmacy Patient states feeling better. 21:22 Reassessment: Patient appears in no apparent distress at this time. No changes from bb3 previously documented assessment. Patient is alert, oriented x 3, equal unlabored respirations, skin warm/dry/pink. Patient denies pain at this time. Patient states symptoms have improved. Vital Signs: 16:45 BP 158 / 83; Pulse 118; Resp 24 S; Temp 98.1(O); Pulse Ox 93% on R/A; aa5 17:05 Weight 101.15 kg; iw 17:52 BP 118 / 85; Pulse 114; Resp 18 S; Pulse Ox 95% on R/A; iw 21:03 BP 152 / 100; Pulse 102; Resp 26; Temp 98.3; Pulse Ox 97% on R/A; fc 21:22 BP 152 / 105; Pulse 103; Resp 22; Temp 98.8; Pulse Ox 97% ; Pain 0/10; bb3 ED Course: 16:29 Patient arrived in ED. ag5 16:30 Hamzah Dos Santos MD is Private Physician. ag5 16:32 [facility]ila Lynn [facility]C [facility] kb 16:32 Onur Ramírez MD is Attending Physician. kb 16:45 Arm band placed on Patient placed in an exam room, on a stretcher. aa5 16:55 Triage completed. aa5 16:59 Darlin Keller, GAEL is Primary Nurse. iw 17:24 Inserted saline lock: 20 gauge in right forearm, using aseptic technique. Blood dh4 collected. 17:24 Inserted saline lock: 20 gauge in left hand, using aseptic technique. Blood collected. dh4 17:31 Chest Single View XRAY In Process Unspecified. EDMS 18:20 CT Abd/Pelvis - IV Contrast Only In Process Unspecified. EDMS 18:55 Florin Chacon DO is Hospitalizing Provider. kb 19:27 SARS-COV-2 RT PCR Sent. bb3 19:40 Urine Microscopic Only Sent. dh4 19:40 Blood Culture Adult (2) Sent. dh4 21:03 No provider procedures requiring assistance completed. Patient admitted, IV remains in fc place. 21:15 Urine Dipstick--Ancillary (enter results) Sent. bb3 21:17 COVID-19 Sent. bb3 21:22 Patient has correct armband on for positive identification. Bed in low position. Call bb3 light in reach. Side rails up X2. 21:22 Initial Neb Treatment Given as ordered Patient was instructed and evaluated on bb3 procedure Patient tolerated procedure well without adverse effect. Administered Medications: 17:10 Drug: NS 0.9% (30 ml/kg) 30 ml/kg Route: IV; Rate: bolus; Site: right forearm; iw 17:25 Drug: Zithromax 500 mg Route: IVPB; Infused Over: 1 hrs; Site: right forearm; iw 21:17 Follow up: Response: No adverse reaction bb3 20:15 Drug: Albuterol 2.5 mg Route: Inhalation; bb3 21:16 Follow up: Response: No adverse reaction; Marked relief of symptoms bb3 20:15 Drug: AtroVENT Aerosol 0.5 mg Route: Inhalation; bb3 21:15 Follow up: Response: No adverse reaction; Marked relief of symptoms bb3 20:20 Drug: LevaQUIN 750 mg Volume: 150 ml; Route: IVPB; Infused Over: 90 mins; Site: right bb3 forearm; 21:10 Follow up: IV Status: Completed infusion iw 21:16 Follow up: Response: No adverse reaction bb3 21:14 Drug: Flagyl 500 mg Volume: 100 ml; Route: IVPB; Rate: 200 ml/hr; Infused Over: 30 bb3 mins; Site: left hand; 21:16 Follow up: Response: No adverse reaction bb3 Outcome: 18:56 Decision to Hospitalize by Provider. kb 20:59 Admitted to Tele accompanied by tech, room 211, with chart, Other Carrie RN Report fc called to Carrie MAYO 21:03 Condition: good fc 21:03 Discharge instructions given to patient, family, Instructed on the need for admit. 21:38 Patient left the ED. bb3 Signatures: Dispatcher [employer] Priscila Contreras, SUDHEER EDGAR-Vera Lazaro RN RN fc Williams, Irene, RN RN Callie Villalba RN RN Richelle Young Brandy bb3 Ravi Lux [facility]
[2020-06-23] MEDS ORDERED: Levofloxacin 750mg IV 750 MG/150 ML BAG IV ONE (19:04)
[2020-06-23 19:57] LABS: Blood Morphology Comment NOT SEEN (NOT SEEN); Platelet Estimate DECR; White Blood Cell Scan OK (OK)
--- NOTE | 2020-06-23 20:11 | P.HP ---
Certification for Inpatient Patient admitted to: Inpatient With expected LOS: >2 Midnights Patient will require the following post-hospital care: None Practitioner: I am a practitioner with admitting privileges, knowledge of patient current condition, hospital course, and medical plan of care. Services: Services provided to patient in accordance with Admission requirements found in Title 42 Section 412.3 of the Code of Federal Regulations <Oc Hylton - Last Filed: 06/23/20 20:05> Patient History Date of Service: 06/23/20 Primary Care Provider: Dr. Dos Santos Reason for admission: Pneumonia, diverticulitis History of Present Illness: 75-year-old male with history of diabetes mellitus type 2, hypertension, CAD status post CABG, hyperlipidemia, COPD, GERD presents emergency department for malaise, cough, abdominal pain. Patient reports that over the course of the last 3 days he had been having increasing generalized weakness and malaise as well as a cough with green/yellow doherty sputum. Patient also reports that he has some left-sided abdominal pain that he has had for many years but is steadily increasing. Patient reports left lower quadrant abdominal pain has worsened even over the course of the last 1 week. During his evaluation in the emergency department patient is found to have elevated white blood cell count at 16, initial vital signs. Patient was tachycardic with a heart rate of around 118, 1st lactic acid level was 2.4, chest x-ray showed left lower lobe pneumonia. CT abdomen pelvis shows what is either diverticulitis or potential neoplasm. Patient reports last had colonoscopy approximately [address] Park and at that time he did remove some polyps. ED provider wishes to admit patient for further evaluation and management. When I saw the patient in the emergency department he was awake, alert, oriented x3. Patient was not dyspneic. Patient was having some left lower quadrant abdominal pain with tenderness to palpation. Patient be admitted for further evaluation and management. - Past Medical/Surgical History Diabetic: Yes -: Hypertension -: History of strokes -: Myocardial infarction -: hernia -: Asthma -: COPD -: Emphysema -: Diabetes mellitus type 2 -: CAD status post CABG -: triple bypass -: hernia repair x2 -: eye lense replacements -: neck surgery -: Cataract surgery Psychosocial/ Personal History: Patient lives at home with his - Family History Father -: Heart disease, Hypertension, Stroke Mother -: Diabetes - Social History Smoking Status: Former smoker Alcohol use: No CD- Drugs: Yes Caffeine use: Yes Place of Residence: Home <Oc Hylton - Last Filed: 06/23/20 20:05> Date of Service: 06/24/20 Home medications list reviewed: Yes - Past Medical/Surgical History -: History of CVA -: History of CAD/CABG -: COPD, steroid dependent -: Diabetes mellitus type 2 [id number]-mtexirwfl -: GERD -: Depression -: Hyperlipidemia -: Former tobacco use <Florin Chacon - Last Filed: 06/24/20 07:48> Allergies procaine HCl [From Novocain] Allergy (Severe, Verified 06/23/20 21:47) Anaphylaxis diphenhydramine HCl [From Benadryl] Allergy (Intermediate, Verified 06/23/20 21:47) Hives/Rash Home Medications: Albuterol Inhaler [Ventolin Inhaler*] 2 puff IN Q6HP PRN 02/25/19 Aspirin Chewable [Aspirin Chewable*] 81 mg PO DAILY 02/25/19 Glimepiride 4 mg PO BID 02/25/19 Losartan Potassium 50 mg PO DAILY 02/25/19 Prednisone [Prince] 5 mg PO DAILY 02/25/19 Terazosin HCl 5 mg PO BEDTIME 02/25/19 Trazodone HCl 100 mg PO BEDTIME 02/25/19 Umeclidinium Brm/Vilanterol Tr [Anoro Ellipta 62.5-25 Mcg INH] 1 puff IN DAILY PRN 02/25/19 Escitalopram [Lexapro*] 1 tab PO DAILY 02/26/19 Metoprolol Succinate [Toprol Xl] 1 tab PO DAILY 02/26/19 Atorvastatin Calcium 1 tab PO BEDTIME 06/23/20 Cetirizine HCl [Zyrtec] 1 tab PO DAILY 06/23/20 Metformin HCl 1 tab PO BEDTIME 06/23/20 Omeprazole Magnesium [Prilosec Otc] 1 tab PO DAILY 06/23/20 Review of Systems Respiratory: Cough, Shortness of Breath, Sputum (Green/doherty) Gastrointestinal: Abdominal Pain <Oc Hylton - Last Filed: 06/23/20 20:05> Physical Examination - Physical Exam General: Alert, In no apparent distress, Oriented x3 HEENT: Atraumatic, Normocephalic, PERRLA, Mucous membr. moist/pink Neck: Supple Respiratory: Clear to auscultation bilaterally, Diminished Cardiovascular: No edema, Regular rate/rhythm, Normal S1 S2 Capillary refill: <2 Seconds Gastrointestinal: Normal bowel sounds, No rebound, No guarding, Tenderness (Mild left lower quadrant tenderness) Musculoskeletal: No contractures, No erythema, No tenderness Integumentary: No significant lesion, No tenderness/swelling, No erythema Neurological: Normal gait, Normal speech, Normal strength at 5/5 x4 extr, Normal tone, Sensation intact Lymphatics: No axilla or inguinal lymphadenopathy - Studies Laboratory Data (last 24 hrs) 06/23/20 17:05: PT 12.8 H, INR 1.09, APTT 29.4 06/23/20 17:05: WBC 16.6 H, Hgb 12.8 L, Hct 39.6, Plt Count 169 06/23/20 17:05: Sodium 135 L, Potassium 3.6, BUN 18, Creatinine 1.01, Glucose 269 H, Total Bilirubin 0.8, AST 14 L, ALT 23, Alkaline Phosphatase 126 H, Amylase 76, Lipase 171 Microbiology Data (last 24 hrs): 06/23/20 17:14 Nasopharnyx Influenza Type A Antigen Screen - Final 06/23/20 17:14 Nasopharnyx Influenza Type B Antigen Screen - Final <Oc Hylton - Last Filed: 06/23/20 20:05> - Studies Laboratory Data (last 24 hrs) 06/23/20 17:05: PT 12.8 H, INR 1.09, APTT 29.4 06/23/20 17:05: WBC 16.6 H, Hgb 12.8 L, Hct 39.6, Plt Count 169 06/23/20 17:05: Sodium 135 L, Potassium 3.6, BUN 18, Creatinine 1.01, Glucose 269 H, Total Bilirubin 0.8, AST 14 L, ALT 23, Alkaline Phosphatase 126 H, Amylase 76, Lipase 171 Microbiology Data (last 24 hrs): 06/23/20 17:14 Nasopharnyx Influenza Type A Antigen Screen - Final 06/23/20 17:14 Nasopharnyx Influenza Type B Antigen Screen - Final <Florin Chacon - Last Filed: 06/24/20 07:48> Assessment and Plan - Plan Assessment Community-acquired pneumonia-left lower lobe Sigmoid diverticulitis Diabetes mellitus type 2 Hypertension COPD Hyperlipidemia CAD status post CABG History of CVA Plan Community-acquired pneumonia-left lower lobe: Patient's former smoker, history of COPD and concurrent diverticulitis continue with Levaquin at this time. Blood and sputum cultures obtained. Will continue with incentive spirometry. DVT prophylaxis Lovenox 40 mg subcutaneous once daily. Sigmoid diverticulitis: Continue with Levaquin, Flagyl. CT report mentions that this may be also related to neoplasm, last colonoscopy approximately 2 years ago. Patient will likely any repeat colonoscopy. Patient does have worsening pain and left lower quadrant tenderness. Diabetes mellitus type 2: A.c. HS Accu-Cheks scale insulin therapy. Obtain A1c with morning labs. Hypertension: Continue home medications COPD: Continue home medications Hyperlipidemia: Continue home medications CAD status post CABG: Continue home medications History of CVA: Continue home medications Discharge Plan: Home Plan to discharge in: 48 Hours - Advance Directives Does patient have a Living Will: Yes Does patient have a Durable POA for Healthcare: Yes - Code Status/Comfort Care Code Status Assessed: Yes (Patient is full code) Critical Care: No Time Spent Managing Pts Care (In Minutes): 55 <Oc Hylton - Last Filed: 06/23/20 20:05> - Plan Case discussed at length with nurse practitioner. Agree with plan of care. Please see progress note for details. Will consult surgery to evaluate diverticulitis. <Florin Chacon - Last Filed: 06/24/20 07:48>
[2020-06-23] MEDS ORDERED: IPRATROPIUM BROM 0.5MG/2.5ML ONE (20:21)
[2020-06-23] MEDS ORDERED: ALBUTEROL 2.5 MG/3 ML NEB SOL ONE (20:21)
[2020-06-23 21:13] LABS: Urine Blood NEGATIVE (NEG); Urine Glucose TRACE (NEG); Urine Protein NEGATIVE (NEG); Urine Specific Gravity 1.015 (1.005-1.030); Urine pH 5.5 (5.0-7.0)
[2020-06-23] MEDS ORDERED: METRONIDAZOLE 500mg IVPB 500 MG/100 ML BAG IV ONE (21:21)
[2020-06-23] MEDS ORDERED: ALBUTEROL INHALER 60 PUFF/8 GM IH PRN (21:23)
[2020-06-23] MEDS ORDERED: TRAZODONE 50 MG TABLET PO SCH (21:23)
[2020-06-23] MEDS ORDERED: ONDANSETRON 4 MG/2 ML VIAL IV PRN (21:23)
[2020-06-23] MEDS ORDERED: ACETAMINOPHEN 500 MG TAB PO PRN (21:23)
[2020-06-23 22:12] VITALS: BMI 32.9
[2020-06-23] MEDS ORDERED: POTASSIUM CL SA 10 MEQ TAB PO ONE (22:12)
[2020-06-23] MEDS: TERAZOSIN HCL 5 MG CAP PO SCH (22:34)
[2020-06-23] MEDS: ATORVASTATIN 20 MG TAB PO SCH (22:34)
[2020-06-23] MEDS: NA CHLORIDE 0.9% 1,000 ML IV SCH (22:35)
[2020-06-23] MEDS: INSULIN -REGULAR HUMAN 50 UNIT/0.5 ML ML SQ SCH (22:35)
[2020-06-24 04:28] LABS: Absolute Lymphocytes (CBC) 1.2 K/uL (0.7-4.9); Basophils % 0.2 % (0-1.3); Hematocrit 31.7 % (39.6-49.0); Lymphocytes % 13.7 % (15.3-44.8); MPV 8.2 fL (7.6-11.3); RBC Red Blood Cell Count 4.01 M/uL (4.33-5.43)
[2020-06-24 04:38] LABS: BUN Blood Urea Nitrogen 12 mg/dL (7-18); Bicarbonate 28 mmol/L (21-32); Glucose Level 139 mg/dL (74-106); Magnesium 1.9 mg/dL (1.8-2.4); Potassium 3.5 mmol/L (3.5-5.1); Sodium Level 141 mmol/L (136-145)
[2020-06-24] MEDS ORDERED: POTASSIUM CL SA 10 MEQ TAB PO ONE (04:59)
[2020-06-24] MEDS: METOPROLOL XL 100 MG TAB PO SCH (05:15)
[2020-06-24] MEDS: METRONIDAZOLE 500mg IVPB 500 MG/100 ML BAG IV SCH ×3 (05:16→20:36)
[2020-06-24] MEDS: NA CHLORIDE 0.9% 1,000 ML IV SCH (05:21)
[2020-06-24] MEDS ORDERED: PANTOPRAZOLE 40MG TABLET PO SCH (06:30)
[2020-06-24] MEDS ORDERED: TRAMADOL HCL 50 MG TAB PO PRN (06:34)
--- NOTE | 2020-06-24 07:45 | P.PN ---
Subjective Date of Service: 06/24/20 Primary Care Provider: Dr. Dos Santos Chief Complaint: Pneumonia, diverticulitis Subjective: Improving, Other (Patient feels better. Less short of breath noted. Abdominal pain also improved.) Physical Examination - Vital Signs Temperature: 98.3 F Blood Pressure: 169/77 Pulse: 94 Respirations: 18 Pulse Ox (%): 99 - Physical Exam General: Alert, In no apparent distress, Oriented x3, Cooperative HEENT: Atraumatic Neck: Supple Respiratory: Clear to auscultation bilaterally, Normal air movement Cardiovascular: Normal pulses, Regular rate/rhythm Gastrointestinal: Normal bowel sounds, Soft and benign, Non-distended, No masses, No rebound, No guarding, Tenderness (Less tenderness to the left lower quadrant) Musculoskeletal: No erythema, No tenderness, No warmth Integumentary: No tenderness/swelling, No erythema, No warmth, No cyanosis Neurological: Normal speech, Normal strength at 5/5 x4 extr, Normal tone, Normal affect - Studies Laboratory Data (last 24 hrs) 06/23/20 17:05: PT 12.8 H, INR 1.09, APTT 29.4 06/23/20 17:05: WBC 16.6 H, Hgb 12.8 L, Hct 39.6, Plt Count 169 06/23/20 17:05: Sodium 135 L, Potassium 3.6, BUN 18, Creatinine 1.01, Glucose 269 H, Total Bilirubin 0.8, AST 14 L, ALT 23, Alkaline Phosphatase 126 H, Amylase 76, Lipase 171 Microbiology Data (last 24 hrs): 06/23/20 17:14 Nasopharnyx Influenza Type A Antigen Screen - Final 06/23/20 17:14 Nasopharnyx Influenza Type B Antigen Screen - Final Medications List Reviewed: Yes Assessment & Plan Discharge Plan: Home Plan to discharge in: 24 Hours Physician Review Additional Text: Assessment Community-acquired pneumonia-left lower lobe Acute Sigmoid diverticulitis Diabetes mellitus type 2 buf-zoigynn-opecfvlom with hyperglycemia Hypertension COPD steroid dependent Hyperlipidemia CAD status post CABG History of CVA Depression GERD Obesity, BMI of 32.9 Plan Community-acquired pneumonia-left lower lobe: COVID test negative. Patient with history of COPD. Will continue with COPD treatment. Patient is a former smoker. Continue DVT prophylaxis. Patient on Levaquin to cover for pneumonia. Provide incentive spirometer. Wean off oxygen. Patient also with diverticulitis. This will be treated as well. Surgery consulted to further evaluate. Anticipate improvement over the next 24 hr with possible discharge as early as tomorrow. Acute Sigmoid diverticulitis: Patient on Levaquin and Flagyl. Will consult surgery who has seen the patient and performed colonoscopy 2 years ago. Patient with history of diverticulosis with removal of polyps. CT scan shows inflammation to the sigmoid region. Neoplasm will need to be ruled out. Patient will need repeat colonoscopy in 4-6 weeks. Will advance diet as carlitos ated. If taking good oral intake will Hep-Lock IV. Anticipate improvement with possible discharge as early as tomorrow. Diabetes mellitus type 2 uvp-jaioyuf-ogfnimtwe with hyperglycemia: A1c 7.5. Restart glimepiride and metformin. Will provide insulin siding scale and monitor Accu-Cheks. Hypertension: Continue home medications including losartan, metoprolol and Terazodin. Will monitor and adjust appropriately. COPD steroid dependent: Continue COPD medication. Patient also steroid dependent. Will continue with prednisone 5 mg daily. Maintain sats above 90%. Hyperlipidemia: Continue home medication Lipitor. CAD status post CABG: Continue medication-aspirin. DVT prophylaxis in place. History of CVA: Continue home medication-aspirin, patient on DVT prophylaxis. GERD: Will provide medication. Depression: Continue Lexapro and trazodone. Obesity, BMI 32.9: Continue lifestyle modification education. Time Spent Managing Pts Care (In Minutes): 55
[2020-06-24] MEDS: INSULIN -REGULAR HUMAN 50 UNIT/0.5 ML ML SQ SCH ×4 (08:00→20:36)
[2020-06-24] MEDS: PANTOPRAZOLE 40MG TABLET PO SCH (08:00)
[2020-06-24] MEDS ORDERED: LOSARTAN POTASSIUM 50 MG TABLET PO SCH (09:00)
[2020-06-24] MEDS ORDERED: predniSONE 5 MG TAB PO SCH (09:00)
[2020-06-24] MEDS: ESCITALOPRAM 20 MG TAB PO SCH (09:10)
[2020-06-24] MEDS: ENOXAPARIN 40 MG/0.4 ML SQ SCH (09:13)
[2020-06-24] MEDS: GLIMEPIRIDE 2 MG TABLET PO SCH ×3 (09:13→23:25)
[2020-06-24] MEDS: ASPIRIN EC 81 MG TAB PO SCH (09:13)
[2020-06-24] MEDS: predniSONE 5 MG TAB PO SCH (09:13)
[2020-06-24] MEDS: CETIRIZINE HCL 5 MG TABLET PO SCH (09:13)
[2020-06-24] MEDS: DULERA 100/5 (MOMETASONE/FORMOTEROL) INHALER IH SCH ×2 (09:51→20:36)
[2020-06-24] MEDS: HYDROCODONE/APAP 7.5/325 MG TAB PO PRN ×3 (10:01→23:48)
[2020-06-24] MEDS ORDERED: Levofloxacin500mg IV 500 MG/100 ML BAG IV SCH (18:00)
[2020-06-24] MEDS: TERAZOSIN HCL 5 MG CAP PO SCH (20:35)
[2020-06-24] MEDS: ATORVASTATIN 20 MG TAB PO SCH (20:35)
[2020-06-24] MEDS ORDERED: TRAZODONE 50 MG TABLET PO SCH (21:00)
[2020-06-24] MEDS ORDERED: METFORMIN HCL 500 MG TAB PO SCH (21:00)
[2020-06-25 04:06] LABS: Absolute Lymphocytes (CBC) 1.2 K/uL (0.7-4.9); Basophils % 0.4 % (0-1.3); Hematocrit 32.5 % (39.6-49.0); Lymphocytes % 18.9 % (15.3-44.8); MPV 7.7 fL (7.6-11.3); RBC Red Blood Cell Count 4.09 M/uL (4.33-5.43)
[2020-06-25 04:13] LABS: BUN Blood Urea Nitrogen 8 mg/dL (7-18); Bicarbonate 29 mmol/L (21-32); Glucose Level 134 mg/dL (74-106); Magnesium 1.9 mg/dL (1.8-2.4); Potassium 3.8 mmol/L (3.5-5.1); Sodium Level 143 mmol/L (136-145)
[2020-06-25] MEDS: METRONIDAZOLE 500mg IVPB 500 MG/100 ML BAG IV SCH (04:15)
[2020-06-25] MEDS: METOPROLOL XL 100 MG TAB PO SCH (05:47)
[2020-06-25] MEDS: HYDROCODONE/APAP 7.5/325 MG TAB PO PRN (06:00)
[2020-06-25] MEDS ORDERED: POTASSIUM CL SA 10 MEQ TAB PO ONE (07:00)
--- NOTE | 2020-06-25 07:03 | P.DS ---
Admission Date: 06/23/20 Discharge Date: 06/25/20 Primary Care Provider: Dr. Dos Santos Disposition: ROUTINE DISCHARGE Discharge Condition: GOOD Reason for Admission: Pneumonia, diverticulitis Consultations: Surgery-Dr. Thompson Procedures: CT scan: FINDINGS: Mild opacities are seen in the left lung base and lingula suspicious for infiltrate/pneumonia. Mild fatty liver is seen. The spleen, pancreas, adrenal glands are within normal limits. No renal mass or hydronephrosis. Small infrarenal abdominal aortic aneurysm, unchanged. No bowel obstruction, free air, free fluid or abscess. The appendix is normal. Irregular thickening the wall of the sigmoid colon numerous diverticula present. Small amount of posterior linear extraluminal air is seen in this region. No evidence of significant lymphadenopathy. Moderate lumbosacral degenerative changes. IMPRESSION: Ewlk-oq-cwnpxqzq opacities are present in the left lung base and lingula likely representing infiltrate/ pneumonia Moderate wall thickening the sigmoid colon wall with several diverticula in the region noted. This could be related to neoplasm or diverticulitis. Medical Problem List: Community-acquired pneumonia-left lower lobe Acute Sigmoid diverticulitis Diabetes mellitus type 2 wcd-wgxqgpn-fvogxbbkf with hyperglycemia Hypertension COPD steroid dependent Hyperlipidemia CAD status post CABG History of CVA Depression GERD Obesity, BMI of 32.9 Brief History of Present Illness: 75-year-old male with history of diabetes mellitus type 2, hypertension, CAD status post CABG, hyperlipidemia, COPD, GERD presents emergency department for malaise, cough, abdominal pain. Patient reports that over the course of the last 3 days he had been having increasing generalized weakness and malaise as well as a cough with green/yellow doherty sputum. Patient also reports that he has some left-sided abdominal pain that he has had for many years but is steadily increasing. Patient reports left lower quadrant abdominal pain has worsened even over the course of the last 1 week. During his evalu ation in the emergency department patient is found to have elevated white blood cell count at 16, initial vital signs. Patient was tachycardic with a heart rate of around 118, 1st lactic acid level was 2.4, chest x-ray showed left lower lobe pneumonia. CT abdomen pelvis shows what is either diverticulitis or potential neoplasm. Patient reports last had colonoscopy approximately [address] Park and at that time he did remove some polyps. ED provider wishes to admit patient for further evaluation and management. Hospital Course: Patient presented with cough, abdominal pain and malaise. Patient evaluated in the emergency room. Patient found to have left lower lobe pneumonia with acute sigmoid diverticulitis. The patient was admitted for further evaluation and treatment. Patient with underlying history of COPD steroid dependent, hypertension, diabetes mellitus type 2, hyperlipidemia, CAD with prior CABG, history of CVA, GERD and depression. Patient did well with IV antibiotic therapy. Surgery was consulted to further evaluate the diverticulitis. CT scan showed inflammation to the sigmoid region. Neoplasm could not be ruled out. At discharge patient able the tolerate his diet. Pain significantly improved. Patient without shortness of breath and remains on room air. Patient had prior colonoscopy about 2 years ago with removal of polyps. At discharge patient will continue with Levaquin 500 mg 1 pill daily and Flagyl 500 mg 1 pill 3 times a day for 5 more days. Patient will also be given lactobacillus 1 pill twice daily. Patient will continue with incentive spirometer. Patient will follow up with surgery within the next 2-4 weeks in preparation for colonoscopy in the near future to further evaluate his condition. Recommend to recheck chest x-ray in 2-4 weeks to monitor resolution. Patient will follow up with his PCP to further address. Education on pneumonia and diverticulitis will be provided. Patient with COPD steroid dependent. Patient has remained stable. At discharge patient will continue with prednisone 5 mg daily, albuterol 2 puffs 3 times a day as needed for shortness of breath, and Anoro 1 puff daily. Recommend to establish care with pulmonology in the area to further monitor and address his condition. Patient with diabetes mellitus type 2 sno-eszjcec-kmhxopboe with hyperglycemia. A1c 7.5. This has remained stable. At discharge he will continue with glimepiride 4 mg 1 pill twice daily and metformin 1000 mg daily. Recommend to maintain blood sugar less than 140 fasting and less than 200 after meals. Further adjustment in his medication may be required. This can be done with the help of his PCP. Patient with hypertension. Patient takes multiple medications. Blood pressure slightly elevated. Losartan was increased during his stay. At discharge patient will continue with losartan 100 mg daily, Terazosin 5 mg daily, and Toprol-XL 100 mg daily. Recommend to monitor blood pressure daily. Recommend to maintain blood pressure less than 150/80. If blood pressure remains elevated further adjustment in medication may be required. This can be done with the help of his PCP. Patient with hyperlipidemia. This has remained stable. At discharge he will continue with Lipitor 20 mg daily. Patient with history of CAD with prior CABG and CVA. At discharge patient will continue with aspirin 81 mg daily. Recommend follow up with cardiology as directed. Patient with GERD. At discharge patient will continue with Prilosec 20 mg daily. Patient with depression. At discharge patient will continue with Lexapro 20 mg daily and trazodone 100 mg at bedtime. Patient is seen by pain management. Continue with pain management recommendations and follow up. Lifestyle modification education provided. Vital Signs/Physical Exam: Temp Pulse Resp BP Pulse Ox 98.2 F 100 H 17 170/60 H 97 06/25/20 04:00 06/25/20 05:47 06/25/20 06:00 06/25/20 05:47 06/25/20 06:00 General: Alert, In no apparent distress, Oriented x3, Cooperative HEENT: Atraumatic Neck: Supple Respiratory: Clear to auscultation bilaterally, Normal air movement Cardiovascular: Normal pulses, Regular rate/rhythm Gastrointestinal: Normal bowel sounds, Soft and benign, Non-distended, No tenderness, No masses, No rebound, No guarding Musculoskeletal: No erythema, No tenderness, No warmth Integumentary: No tenderness/swelling, No erythema, No warmth, No cyanosis Neurological: Normal speech, Normal strength at 5/5 x4 extr, Normal tone, Normal affect Laboratory Data at Discharge: WBC 6.4 K/uL (4.3-10.9) D 06/25/20 03:40 Hgb 10.9 g/dL (13.6-17.9) L 06/25/20 03:40 Hct 32.5 % (39.6-49.0) L 06/25/20 03:40 Plt Count 157 K/uL (152-406) 06/25/20 03:40 PT 12.8 SECONDS (9.5-12.5) H 06/23/20 17:05 INR 1.09 06/23/20 17:05 APTT 29.4 SECONDS (24.3-36.9) 06/23/20 17:05 Sodium 143 mmol/L (136-145) 06/25/20 03:40 Potassium 3.8 mmol/L (3.5-5.1) 06/25/20 03:40 BUN 8 mg/dL (7-18) 06/25/20 03:40 Creatinine 0.78 mg/dL (0.55-1.3) 06/25/20 03:40 Glucose 134 mg/dL (74-106) H 06/25/20 03:40 Magnesium 1.9 mg/dL (1.8-2.4) 06/25/20 03:40 Total Bilirubin 0.8 mg/dL (0.2-1.0) 06/23/20 17:05 AST 14 U/L (15-37) L 06/23/20 17:05 ALT 23 U/L (12-78) 06/23/20 17:05 Alkaline Phosphatase 126 U/L (45-117) H 06/23/20 17:05 Amylase 76 U/L (25-115) 06/23/20 17:05 Lipase 171 U/L (73-393) 06/23/20 17:05 Home Medications: Albuterol Inhaler [Ventolin Inhaler*] 2 puff IN Q6HP PRN 02/25/19 Aspirin Chewable [Aspirin Chewable*] 81 mg PO DAILY 02/25/19 Glimepiride 4 mg PO BID 02/25/19 Prednisone [Prince] 5 mg PO DAILY 02/25/19 Terazosin HCl 5 mg PO BEDTIME 02/25/19 Trazodone HCl 100 mg PO BEDTIME 02/25/19 Umeclidinium Brm/Vilanterol Tr [Anoro Ellipta 62.5-25 Mcg INH] 1 puff IN DAILY PRN 02/25/19 Escitalopram [Lexapro*] 1 tab PO DAILY 02/26/19 Metoprolol Succinate [Toprol Xl] 1 tab PO DAILY 02/26/19 Atorvastatin Calcium 1 tab PO BEDTIME 06/23/20 Cetirizine HCl [Zyrtec] 1 tab PO DAILY 06/23/20 Metformin HCl 1 tab PO BEDTIME 06/23/20 Omeprazole Magnesium [Prilosec Otc] 1 tab PO DAILY 06/23/20 Lactobacillus Acidophilus [Acidophilus Lactobacilli] 1 each PO BID #14 capsule 06/25/20 Levofloxacin [Levaquin] 500 mg PO DAILY #5 tablet 06/25/20 Losartan Potassium 100 mg PO DAILY #30 tablet 06/25/20 metroNIDAZOLE [Flagyl] 500 mg PO Q8H #15 tablet 06/25/20 New Medications: Lactobacillus Acidophilus [Acidophilus Lactobacilli] 1 each PO BID #14 capsule metroNIDAZOLE [Flagyl] 500 mg PO Q8H #15 tablet Levofloxacin [Levaquin] 500 mg PO DAILY #5 tablet Losartan Potassium 100 mg PO DAILY #30 tablet Patient Discharge Instructions: 1. Recommend follow up with PCP in 1 week to follow up this hospitalization. 2. Patient presented with cough, abdominal pain and malaise. Patient evaluated in the emergency room. Patient found to have left lower lobe pneumonia with acute sigmoid diverticulitis. The patient was admitted for further evaluation and treatment. Patient with underlying history of COPD steroid dependent, hypertension, diabetes mellitus type 2, hyperlipidemia, CAD with prior CABG, history of CVA, GERD and depression. Patient did well with IV antibiotic therapy. Surgery was consulted to further evaluate the diverticulitis. CT scan showed inflammation to the sigmoid region. Neoplasm could not be ruled out. At discharge patient able the tolerate his diet. Pain significantly improved. Patient without shortness of breath and remains on room air. Patient had prior colonoscopy about 2 years ago with removal of polyps. At discharge patient will continue with Levaquin 500 mg 1 pill daily and Flagyl 500 mg 1 pill 3 times a day for 5 more days. Patient will also be given lactobacillus 1 pill twice daily. Patient will continue with incentive spirometer. Patient will follow up with surgery within the next 2-4 weeks in preparation for colonoscopy in the near future to further evaluate his condition. Recommend to recheck chest x-ray in 2-4 weeks to monitor resolution. Patient will follow up with his PCP to further address. Education on pneumonia and diverticulitis will be provided. 3. Patient with COPD steroid dependent. Patient has remained stable. At discharge patient will continue with prednisone 5 mg daily, albuterol 2 puffs 3 times a day as needed for shortness of breath, and Anoro 1 puff daily. Recommend to establish care with pulmonology in the area to further monitor and address his condition. 4. Patient with diabetes mellitus type 2 imq-btboflh-jlumuvwnh with hyperglycemia. A1c 7.5. This has remained stable. At discharge he will continue with glimepiride 4 mg 1 pill twice daily and metformin 1000 mg daily. Recommend to maintain blood sugar less than 140 fasting and less than 200 after meals. Further adjustment in his medication may be required. This can be done with the help of his PCP. 5. Patient with hypertension. Patient takes multiple medications. Blood pressure slightly elevated. Losartan was increased during his stay. At discharge patient will continue with losartan 100 mg daily, Terazosin 5 mg daily, and Toprol-XL 100 mg daily. Recommend to monitor blood pressure daily. Recommend to maintain blood pressure less than 150/80. If blood pressure remains elevated further adjustment in medication may be required. This can be done with the help of his PCP. 6. Patient with hyperlipidemia. This has remained stable. At discharge he will continue with Lipitor 20 mg daily. 7. Patient with history of CAD with prior CABG and CVA. At discharge patient will continue with aspirin 81 mg daily. Recommend follow up with cardiology as directed. 8. Patient with GERD. At discharge patient will continue with Prilosec 20 mg daily. 9. Patient with depression. At discharge patient will continue with Lexapro 20 mg daily and trazodone 100 mg at bedtime. 10. Patient is seen by pain management. Continue with pain management recommendations and follow up. 11. Lifestyle modification education provided. Diet: ADA Activity: Ad suhail Time spent managing pt's care (in minutes): 55
--- NOTE | 2020-06-25 07:17 | EKG ---
Test Date: 2020-06-23 Test Time: 17:00:59 Certified Legal Investigator: ZAY MEASUREMENT RESULTS: Intervals: Rate: 119 [place]: 142 QRSD: 78 QT: 340 QTc: 478 [place]: P: -19 [place]: 142 QRS: 63 T: 18 INTERPRETIVE STATEMENTS: Sinus tachycardia Otherwise normal ECG Compared to ECG 07/24/2019 20:47:39 Sinus rhythm no longer present Electronically Signed On 06-25-20 07:15:08 CDT by Jaret Allen
--- NOTE | 2020-06-25 07:24 | RAD REPORT ---
EXAM DESCRIPTION: RAD - Chest Pa And Lat (2 Views) - 06/25/2020 6:03 am CLINICAL HISTORY: follow up pneumonia [facility] COMPARISON: Profile TECHNIQUE: Frontal and lateral views of the chest were obtained. FINDINGS: The lungs are underinflated. Infiltrate changes in the lower left lung field show no signi ficant improvement. Right lung markings are accentuated due to shallow inspiration. Right base can be monitored for a developing infiltrate. There is atelectasis in the mid left lung field. Heart size is normal and central vasculature is within normal limits. No pleural effusion or pneumothorax seen . No acute bony finding noted. No aortic abnormality. IMPRESSION: Left lower lobe infiltrative process not clearly different from comparison.
[2020-06-25] MEDS: INSULIN -REGULAR HUMAN 50 UNIT/0.5 ML ML SQ SCH (07:55)
[2020-06-25] MEDS: DULERA 100/5 (MOMETASONE/FORMOTEROL) INHALER IH SCH (07:57)
[2020-06-25] MEDS: predniSONE 5 MG TAB PO SCH (07:57)
[2020-06-25] MEDS: ESCITALOPRAM 20 MG TAB PO SCH (07:57)
[2020-06-25] MEDS: ASPIRIN EC 81 MG TAB PO SCH (07:57)
[2020-06-25] MEDS: ENOXAPARIN 40 MG/0.4 ML SQ SCH (07:57)
[2020-06-25] MEDS: CETIRIZINE HCL 5 MG TABLET PO SCH (07:57)
[2020-06-25] MEDS: PANTOPRAZOLE 40MG TABLET PO SCH (07:57)
[2020-06-25] MEDS ORDERED: LOSARTAN POTASSIUM 50 MG TABLET PO SCH (09:00)
[2020-06-25 09:03] VITALS: BP 148/83
[2020-06-25 09:18] VITALS: O2SAT 91
[2020-06-25 09:25] VITALS: TEMP 97.1
== END 2020-06-25 09:11 | disposition home or self-care (01) | DRG 391 ==
LOC: ER 16:27 → ERHOLD 19:27 → 2ND 21:14
PROVIDERS: ADMIT Family Medicine; ATTEND Family Medicine
DX: K57.32 Diverticulitis of large intestine without perforation or abscess without bleeding (principal); J18.9 Pneumonia, unspecified organism; J44.0 Chronic obstructive pulmonary disease with (acute) lower respiratory infection; C18.7 Malignant neoplasm of sigmoid colon; M54.9 Dorsalgia, unspecified; I25.10 Atherosclerotic heart disease of native coronary artery without angina pectoris; G89.29 Other chronic pain; K21.9 Gastro-esophageal reflux disease without esophagitis; E78.5 Hyperlipidemia, unspecified; I10 Essential (primary) hypertension; Z79.84 Long term (current) use of oral hypoglycemic drugs; Z79.82 Long term (current) use of aspirin; Z79.899 Other long term (current) drug therapy; Z86.73 Personal history of transient ischemic attack (TIA), and cerebral infarction without residual deficits; I25.2 Old myocardial infarction; Z95.1 Presence of aortocoronary bypass graft; Z88.0 Allergy status to penicillin; Z88.4 Allergy status to anesthetic agent; Z88.8 Allergy status to other drugs, medicaments and biological substances; Z96.1 Presence of intraocular lens; Z87.891 Personal history of nicotine dependence; Z79.52 Long term (current) use of systemic steroids; E11.65 Type 2 diabetes mellitus with hyperglycemia; F32.9 Major depressive disorder, single episode, unspecified; E66.9 Obesity, unspecified; Z68.32 Body mass index [BMI] 32.0-32.9, adult; Z20.828 Contact with and (suspected) exposure to other viral communicable diseases
CPT/HCPCS: 36415; 71045; 71046; 74177; 80048; 80076; 81003; 82150; 82550; 82553; 82947; 83036; 83605; 83690; 83735; 84145; 84484; 85025; 85610; 85730; 87040; 87070; 87205; 87804; 93005; 94010; 96365; 96375; 99285; J0456; J1650; J7030; J7050; J7512; J7606; Q9967; U0003

== ENCOUNTER 2021-09-14 13:20 | Emergency (ER) | payer OTHER ==
--- NOTE | 2021-09-14 15:01 | ER ---
Nurse's Notes [facility] Name: Rick Xavier Age: 76 yrs Sex: Male : 1945 Arrival Date: 09/14/2021 Time: 13:21 Bed Waiting Private MD: Hamzah Dos Santos R Diagnosis: Assessment: 09/14 14:32 Reassessment: not in lobby. iw ED Course: 13:21 Patient arrived in ED. am2 13:22 Hamzah Dos Santos MD is Private Physician. am2 Administered Medications: No medications were administered Outcome: 15:00 Patient left the ED. iw Signatures: Darlin Keller RN RN iw Mayra Sesay am2
== END 2021-09-14 15:00 | disposition left against medical advice (07) ==
LOC: ER 13:20
DX: Z02.9 Encounter for administrative examinations, unspecified (principal)